=== PATIENT | male | born 1975 | race Caucasian/White ===

== ENCOUNTER → 2017-12-05 11:46 | Outpatient (CLI) | payer OTHER, SELFPAY ==
--- NOTE | 2017-12-05 17:24 | STRESSREP ---
Stress Test Report Exercise stress test. 42-year-old male with a history of chest pain. Stress protocol: 74-year-old man with a history of chest pain. Resting blood pressure 738/94 mmHg. The patient exercised according to regular Don protocol for a total duration of 12 minutes. Patient completed stage IV of the Don protocol. The maximum heart rate attained was 176 bpm was 99% maximum predicted heart rate the maximum workload was 13.4 metabolic equivalents. At rest there were no ST or T-wave changes noted suggest ischemia peak exercise upsloping ST changes only were noted with no meet the criteria for ischemia. Resting blood pressure is 138/94 peak blood pressure is 158/72 rate pressure product was 27,800. No clinical angina was noted no arrhythmias were noted the test was terminated due to leg fatigue. Conclusion: Exercise stress test with no EKG criteria for ischemia at a high workload. Excellent functional aerobic capacity.
== END ==
PROVIDERS: Family Provider Internal Medicine; PCP Internal Medicine; Visit Provider Internal Medicine
DX: R07.9 Chest pain, unspecified (principal); R55 Syncope and collapse
CPT/HCPCS: 93017

== ENCOUNTER → 2019-05-11 09:04 | Outpatient (CLI) | payer OTHER, SELFPAY ==
[2019-05-11 08:31] VITALS: BMI 25.9
[2019-05-11 12:54] LABS: Absolute Lymphocyte Count 0.87 X10^3/uL (0.83-4.51); Absolute Neutrophil Count 2.3 X10^3/uL (2.0-7.7); Basophil# 0.02 X10^3/uL; Basophil% 0.6 % (0-1); Eosinophil# 0.04 X10^3/uL; Eosinophils% 1.1 % (0-5); Hematocrit 45.5 % (40-54); Hemoglobin 15.3 g/dL (13.0-16.5); Lymphocyte # 0.87 X10^3/ul (4.0); Lymphocyte % 24.4 % (19-41); Mean Corp Hgb Conc 33.6 g/dL (32-36); Mean Corpuscular Hgb 31.3 pg (27.0-32.0); Mean Platelet Vol. 9.9 fl (6.2-12.0); Monocyte# 0.36 X10^3/uL; Monocyte% 10.1 % (0-10); NRBC Flagged by Analyzer 0 % (0-5); Neutrophil # 2.25 X10^3/uL (2.7-7.7); Neutrophil % 63.2 % (47-70); Platelet Count 191 K/mm3 (150-450); RBC Distribution Width CV 12.2 % (11.6-14.6); RBC Distribution Width SD 42.3 fl (35.1-43.9); Red Blood Count 4.89 M/mm3 (4.6-6.2); White Blood Count 3.6 K/mm3 (4.4-11.0)
[2019-05-11 13:36] LABS: ALB/GLOB Ratio 1.3 RATIO (0.9-2.4); AST(SGOT) 24 U/L (15-37); Alanine Aminotransfer ALT/SGPT 38 U/L (16-61); Albumin, Serum 4.2 g/dL (3.2-5.0); Alkaline Phosphatase 72 U/L (45-117); Anion Gap 6 (5-15); BUN 17 mg/dL (7-18); BUN/Creat Ratio 17.7 RATIO (10-20); Calcium,Total 9.5 mg/dL (8.5-10.1); Chloride 107 mmol/L (98-107); Cholesterol 247 mg/dL (200); Creatinine, Serum 0.96 mg/dL (0.70-1.30); EST Glomerular Filtration Rate 90 mL/min (>60); Est Glom Filt Rate - Afr Amer 109 mL/min (>60); Globulin 3.2 g/dL (2.2-4.2); Glucose 99 mg/dL (74-106); High Density Lipoprotein 51 mg/dL; Potassium 4.4 mmol/L (3.5-5.1); Protein, Total 7.4 g/dL (6.4-8.2); Sodium Level 139 mmol/L (136-145); Triglycerides 114 mg/dL; Very Low Density Lipoprotein 23 mg/dL (5-40)
== END ==
PROVIDERS: PCP Internal Medicine; Visit Provider Internal Medicine
DX: E78.5 Hyperlipidemia, unspecified (principal)
CPT/HCPCS: 36415; 80053; 80061; 85025

== ENCOUNTER → 2019-05-21 06:49 | Outpatient (CLI) | payer OTHER, SELFPAY ==
[2019-05-11 08:31] VITALS: BMI 25.9
--- NOTE | 2019-05-21 06:57 | CT_ITS ---
STUDY: CT ABDOMEN AND PELVIS WITH CONTRAST REASON FOR EXAM: Male, 43 years old. Inguinal hernia. RADIATION DOSAGE (If Supplied By Facility): CTDIvol = ( 13.02 ) mGy, DLP = ( 834.48 ) mGycm TECHNIQUE: Transaxial images were obtained from the dome of the diaphragm to the symphysis pubis with oral contrast. IV/Oral Isovue 300 100CC was administered. Sagittal and coronal images were reconstructed. Individualized dose optimization techniques were used for this CT. COMPARISON: None. FINDINGS: The visualized lung bases are unremarkable. The visualized portions of the heart are within normal limits. There is hepatomegaly with diffuse hepatic enlargement. Normal gallbladder and extrahepatic biliary system. Normal spleen. Normal pancreas. Normal bilateral adrenal glands. Normal right kidney. Normal left kidney. Normal visualized stomach. Normal small intestine. Normal colon. The appendix is visualized and appears normal. Normal abdominal aorta. Normal inferior vena cava. Normal retroperitoneum. Normal urinary bladder. There is no free fluid in the abdomen or pelvis. There is no free fluid in the abdomen or pelvis. There is a left-sided inguinal hernia containing adipose tissue. Normal osseous structures. CT/Abdomen/Pelvis WITH Contrast IMPRESSION: Left inguinal hernia containing fat. No intra-abdominal mass or obstruction. Hepatomegaly. Electronically Signed: Cj Kim MD at 8:43 EDT , Service support ,
== END ==
PROVIDERS: Family Provider Internal Medicine; PCP Internal Medicine; Referring Provider Internal Medicine; Visit Provider Internal Medicine
DX: K40.90 Unilateral inguinal hernia, without obstruction or gangrene, not specified as recurrent (principal)
CPT/HCPCS: 74177; Q9967

== ENCOUNTER 2019-06-01 10:56 | Day surgery (SDC) | payer OTHER, SELFPAY ==
--- NOTE | 2019-05-27 03:01 | HP_ITS ---
Intake Vital Signs 05/27/19 Body Mass Index (BMI) 25.9 05/27/19 Height 6 ft 5 in 05/27/19 Weight: 216 lb 05/27/19 Body Mass Index (BMI) 25.6 05/27/19 Blood Pressure 154/84 H 05/27/19 Blood Pressure Location Rt brachial 05/27/19 Blood Pressure Position Sitting 05/27/19 Respiratory Rate 18 05/27/19 Pulse Rate 71 05/27/19 Pulse Source Monitor 05/27/19 Temperature 98.3 F 05/27/19 Temperature Source Oral 05/27/19 Pulse Ox 97 05/27/19 Oxygen Delivery Method room air Intake Visit Reasons: Inguinal Hernia Chief Complaint: establish care and possible hernia Prn Occupational Therapist Required: No Is patient in pain?: No Allergies No Known Allergies Allergy (Verified 05/27/19 14:43) Medications citalopram 20 mg tablet 20 mg PO DAILY #90 tab 05/11/19 [Rx Confirmed 05/27/19] lansoprazole 30 mg capsule,delayed release 30 mg PO DAILY #90 cap 05/11/19 [Rx Confirmed 05/27/19] pravastatin 40 mg tablet 40 mg PO DAILY #90 tab 05/11/19 [Rx Confirmed 05/27/19] sildenafil 100 mg tablet 100 mg PO DAILY PRN 05/11/19 [History Confirmed 05/27/19] PFSH Medical History Acid reflux (Acute) Left inguinal hernia (Acute) Alcohol abuse (Acute) Anxiety and depression (Acute) Hyperlipemia (Acute) Surgical History History of hernia repair (Acute) Family History Grandfather Colon cancer Grandmother Breast cancer Father Hypertension Social History (Updated 05/27/19 @ 15:02 by Kraig Solano MD) Smoking Status: Never smoker Smokeless tobacco user: chewing tobacco alcohol intake: former year quit: 2019 substance use type: does not use what type of physical activity do you participate in: running, weight training frequency: 3-4 times per week HPI HPI HPI: LESA DUTTON is a 43 M who presents to the office today for HPI HPI Surgical H&P: Yes HPI: LESA DUTTON, is a 43 M who presents to the office today for Evaluation of left inguinal hernia. Patient states for about a month and a half he has been noticing pain while lifting in his left groin area he has had no change in his bowel or bladder habits he has had a CAT scan obtained at [facility] which showed a left-sided bulge. He notices that the hernia reduces when he lies down. He status post a open right inguinal hernia repair by of surgeon in [facility]. ROS General General: No weight change, appetite, fatigue, colon cancer, breast cancer or weakness HEENT HEENT: No difficulty swallowing, eye injury, eye surgery, swollen glands or hoarseness Endo Endocrine: No thyroid disease, diabetes mellitus, thyroid cancer, Hair loss, heat intolerance or cold intolerance Skin Skin: No rash or changing moles Breast Breast: No left breast lump, right breast lump, nipple discharge, breast pain, abnormal mammogram, abnormal US or breast enlargement Musc Musculoskeletal: No back problems, arthritis, rheumatoid arthritis, gout or joint pain Cardio Cardiovascular: No murmur, pacemaker, heart disease, atrial fibrillation, high blood pressure, heart attack, heart stent, palpitations, shortness of breat with exertion or chest pain Psych Psychiatric: Yes depression and anxiety; no hearing voices Resp Respiratory: No shortness of breath, No sleep apnea, No cough, No COPD, No asthma, No emphysema, No wheezing Gastro Gastrointestinal: No abdominal pain, No nausea or vomiting, No diarrhea, No constipation, No blood in stool, Yes acid reflux, Yes hemorrhoids, No ulcers, No gallbladder problem, No black,tarry stools Sebastian Hematologic: No blood thinners, No blood disorders, No bleeding, No anemia, No blood clots Neuro Neurologic: No system reviewed and no additional complaints, except as docu, No as per HPI, No abnormal walking, No abnormal hearing, No abnormal movements, No abnormal speech, No behavioral changes, No burning sensations, No confusion, No seizure-like activity, No unsteadiness, No dizziness, No localized weakness, No frequent falls, No headache(s), No lack of coordination, No loss of vision, No memory loss, No numbness, No other visual disturbances, No radiating pain, No restless legs, No sensory deficit, No fainting, No tingling, No tremor(s), No weakness, No other Exam Const General: no acute distress, well developed, well hydrated Orientation: oriented to person, oriented to place, oriented to time [facility] Head: normocephalic, atraumatic Ears: external ears normal Mouth: moist mucous membranes Eyes Sclera: sclerae normal Pupils: normal by confrontation Neck Neck: no lymphadenopathy noted Neck mass: No Thyroid: thyroid normal, symmetrical Chest Chest palpation & inspection: normal inspection of the chest Breast Palpation: No nipple discharge Resp Effort & Inspection: normal respiratory effort Auscultation: clear to auscultation bilaterally Percussion: percussion normal Cardio Rate: regular rate Rhythm: regular rhythm Heart Sounds: no murmurs GI Palpation: soft, no hepatosplenomegaly, no masses, tender Rectal Exam: other Other: Reducible left inguinal hernia is identified. Rectal exam deferred. Extrem General: normal to inspection, no clubbing, cyanosis or edema Assessment & Plan Problems 1. Left inguinal hernia K40.90 Plan My plan is to perform a Robotically assisted laparoscopic left inguinal hernia repair with mesh. The planned surgical procedure was discussed extensively with the patient. The risks, benefits, anticipated outcomes and possible complication were mentioned. The patient understands that all hernia repair surgery has a chance of recurrence and/or chronic post-operative pain. My staff has also explained the procedure in understandable terms and the patient was given the option to take printed material concerning the planned procedure. The patient had the opportunity to ask questions concerning the planned procedure. The patient freely consents to the planned procedure. Coding Level of Care Code Off vis,new,level 3 Diagnoses Left inguinal hernia K40.90 05/27/19 1502 <Electronically signed by Kraig inman MD> Date _ Kraig Solano MD I have re-examined the patient. There are no clinical changes since date of exam.
[2019-05-27 14:43] VITALS: BMI 25.9
[2019-06-01] VITALS (10 sets, daily range): BP systolic 122–141; BP diastolic 78–97; PULSE 59–82; RESP 14–16; TEMP 36.3–36.7; O2SAT 96–100; BMI 27.1
[2019-06-01 11:33] LABS: Prothrombin Time (Protime)PT. 12.8 SECONDS (11.7-14.9)
[2019-06-01 11:34] LABS: Partial Thromboplast Time 26.6 Seconds (24.1-36.2)
[2019-06-01] MEDS: Lactated Ringers 1,000 ML 100 ML IV ×2 (12:14→12:43)
--- NOTE | 2019-06-01 13:28 | PCM.OPRPT ---
Problem List (1) Left inguinal hernia Status: Acute Report of Operation Date of Procedure: 06/01/19 Pre-Operative Diagnosis: Left inguinal hernia Post-Operative Diagnosis: Same Surgery/Procedure Performed:: Robotically assisted laparoscopic left inguinal herniorrhaphy with mesh Type of Anesthesia:: General Specimen's removed: None Estimated Blood Loss (mL): <25 cc Fluids Replaced: 1 L LR Description of Procedure: Patient was brought into the operating room. Placed in the supine position. Under excellent general trach intubation abdomen the bed was then placed in the head down and rotated to the right position. The abdomen was then sterilely prepped draped in usual fashion. Local was injected supraumbilically incision was made dissection was carried down to the fascia fascia was grasped with [place] varies needle was placed inside the abdomen the abdomen was insufflated to 15 torr a #8 trocar was placed without difficulty. It was flank by 2 #8 trochars under direct visualization without injury to underlying structures. Robot was brought in and docked appropriately pro-grasp was used in the left hand scissors were used in the right hand. I scored the peritoneum dissecting in the preperitoneal space down to Pino's ligament I dissected laterally dissecting the cord and vessel structures free from the peritoneum I brought back in an extremely large cord lipoma back into the peritoneum. I fashioned a medium 3 DMax mesh into the wound. I tacked it to Pino's ligament with a 0 Vicryl suture ligature the mesh laid completely flat it looked great I then brought the peritoneum back together with 30V lock suturing it upon itself. Covering the mesh completely. I had good hemostasis. Trochars were removed under direct visualization. Skin incisions were brought together with interrupted 3-0 Monocryl. Steri-Strips were applied. Sterile dressings were applied. Patient tolerated the procedure well. - Admit VTE Documentation VTE Present on Admission: No VTE Mechan Device Prophylaxis: SCD's VTE Pharm Prophylaxis ordered?: No Reason prophylaxis not ordered:: Treatment Not Indicated
--- NOTE | 2019-06-01 13:29 | DCINST_ITS ---
Discharge Diet: Light diet - advance as tolerated Discharge Activity: Return to Normal Activity, May Drive - when you are no longer taking narcotic pain medications., May Shower - with the bandage in place 1-2 days after surgery. Lifting Restrictions: 20 pounds for 8 weeks. Additional Activity Instructions:: Climbing stairs is fine, walking is encouraged. Sitting in bed may be uncomfortable. Sitting up using your lateral muscles (sitting up sideways) is usually more comfortable. Do not drive, work heavy equipment of sign legal documents for 24 hours. If your hernia repair was an ingunial repair, you may have scrotal swelling, an ice pack and/or athletic support can provide more comfort. Pain medications may cause nausea, you should typically eat light foods as you take your pain medications. Pain medications may also cause constipation. If you have difficulty with this, discuss with your doctor. Call your doctor if your incision/area has: Continuous Slow Oozing, Sudden Increased Bleeding, Increased Pain/ Swelling, Increased Redness, Foul Smelling Discharge Call your doctor if you observe: Fever of 101 or Higher Suture Line Care: Avoid Pulling/Pushing, Avoid Pinching/Bending Additional Dressing/Incision Instructions:: Leave the operative bandage on for 2-3 days. When you remove the bandage, leave the steri-strips on place until your follow up appointment or they fall off. Allergies/Adverse Reactions: Allergies No Known Allergies Allergy (Verified 06/01/19 12:05) Medications to take at Discharge citalopram 20 mg tablet 20 mg PO DAILY #90 tab 05/11/19 lansoprazole 30 mg capsule,delayed release 30 mg PO DAILY #90 cap 05/11/19 pravastatin 40 mg tablet 40 mg PO DAILY #90 tab 05/11/19 sildenafil 100 mg tablet 100 mg PO DAILY PRN 05/11/19 Oxycodone HCl/Acetaminophen [Percocet 5/325] 1 - 2 tab PO Q4H PRN PRN 6 Days #30 tab 06/01/19 The following prescriptions were given: Oxycodone HCl/Acetaminophen [Percocet 5/325] 1 - 2 tab PO Q4H PRN PRN 6 Days #30 tab PRN Reason: Pain Prescription Printed Primary Care Physician: Hank Gill MD [Primary Care Provider] - Test Results: Test results from this visit will be discussed in further detail at your follow- up appointment, if applicable. Please Follow Up With: Kraig Solano MD - [phone] When: Plan to have a follow up appointment in 7 days. Call to schedule.
[2019-06-01] MEDS: Cefazolin 2 GM in 0.9% Normal Saline 100 ML IV (13:36)
[2019-06-01] MEDS: Bupivacaine Mpf 0.5% 30 ML VIAL (15:15)
[2019-06-01] MEDS: oxyCODONE 5 MG Tablet 10 MG PO (16:58)
[2019-06-01] MEDS: Acetaminophen 325 MG Tablet 650 MG PO (16:59)
== END 2019-06-01 19:05 | disposition home or self-care (01) ==
LOC: SDC 10:56 → AC 10:58
PROVIDERS: Anesthesiology; Family Provider Internal Medicine; PCP Internal Medicine; Referring Provider Surgery; Visit Provider Surgery
PROC: 0YQ64ZZ Repair Left Inguinal Region, Percutaneous Endoscopic Approach (ICD-10-PCS; CPT 49650; principal; 2019-06-01 12:40)
DX: K40.90 Unilateral inguinal hernia, without obstruction or gangrene, not specified as recurrent (principal); E78.5 Hyperlipidemia, unspecified; F32.9 Major depressive disorder, single episode, unspecified; F41.9 Anxiety disorder, unspecified; K21.9 Gastro-esophageal reflux disease without esophagitis; F17.220 Nicotine dependence, chewing tobacco, uncomplicated; Z79.899 Other long term (current) drug therapy
CPT/HCPCS: 00840; 49650; S2900; 36415; 85610; 85730; J7120; C1781; J2405

== ENCOUNTER → 2020-11-08 09:33 | Outpatient (CLI) | payer OTHER, SELFPAY ==
[2020-11-08 08:39] VITALS: BMI 24.6
[2020-11-08 12:10] LABS: Absolute Lymphocyte Count 0.76 X10^3/uL (0.83-4.51); Absolute Neutrophil Count 2.1 X10^3/uL (2.0-7.7); Basophil# 0.02 X10^3/uL; Basophil% 0.6 % (0-1); Eosinophil# 0.04 X10^3/uL; Eosinophils% 1.2 % (0-5); Hematocrit 47.5 % (40-54); Hemoglobin 15.7 g/dL (13.0-16.5); Lymphocyte # 0.76 X10^3/ul (0.83-4.51); Mean Corp Hgb Conc 33.1 g/dL (32-36); Mean Corpuscular Hgb 31.3 pg (27.0-32.0); Mean Corpuscular Volume 94.8 fL (80-94); Monocyte# 0.33 X10^3/uL; NRBC Flagged by Analyzer 0 % (0-5); Neutrophil # 2.13 X10^3/uL (2.7-7.7); Neutrophil % 64.3 % (47-70); Platelet Count 195 K/mm3 (150-450); RBC Distribution Width CV 12.8 % (11.6-14.6); RBC Distribution Width SD 44.4 fl (35.1-43.9); Red Blood Count 5.01 M/mm3 (4.6-6.2); White Blood Count 3.3 K/mm3 (4.4-11.0)
[2020-11-08 12:36] LABS: ALB/GLOB Ratio 1.3 RATIO (0.9-2.4); AST(SGOT) 25 U/L (15-37); Alanine Aminotransfer ALT/SGPT 26 U/L (16-61); Albumin, Serum 4.3 g/dL (3.2-5.0); Alkaline Phosphatase 80 U/L (45-117); Anion Gap 6 (5-15); BUN 17 mg/dL (7-18); BUN/Creat Ratio 18.6 RATIO (10-20); Calcium,Total 9.1 mg/dL (8.5-10.1); Chloride 103 mmol/L (98-107); Cholesterol 246 mg/dL (200); Creatinine, Serum 0.92 mg/dL (0.70-1.30); EST Glomerular Filtration Rate 95 mL/min (>60); Est Glom Filt Rate - Afr Amer 114 mL/min (>60); Globulin 3.3 g/dL (2.2-4.2); Glucose 91 mg/dL (74-106); High Density Lipoprotein 65 mg/dL; Protein, Total 7.6 g/dL (6.4-8.2); Sodium Level 138 mmol/L (136-145); Thyroid Stim Hormone (TSH) 2.09 uIU/mL (0.358-3.74); Triglycerides 115 mg/dL; Very Low Density Lipoprotein 23 mg/dL (5-40)
[2020-11-15 09:36] LABS: Testosterone, Free 13.29 ng/dL (5.00-21.00)
[2020-11-15 12:20] LABS: Testosterone, % Free 3.92 % (1.50-4.20); Testosterone, Total 339 ng/dL (264-916)
== END ==
PROVIDERS: PCP Internal Medicine; Referring Provider Nurse Practitioner Family; Visit Provider Nurse Practitioner Family
DX: E78.5 Hyperlipidemia, unspecified (principal); K21.9 Gastro-esophageal reflux disease without esophagitis; F41.8 Other specified anxiety disorders; F32.9 Major depressive disorder, single episode, unspecified; N52.9 Male erectile dysfunction, unspecified
CPT/HCPCS: 36415; 80053; 80061; 84402; 84403; 84443; 85025

== ENCOUNTER 2021-11-28 10:26 | Outpatient (CLI) | payer OTHER, SELFPAY ==
--- NOTE | 2021-11-28 09:10 | VAS_PTH ---
PATIENT: LESA DUTTON LOC: [facility] U#:[id number] AGE/SX: 46/M ROOM: RE11/28/[address]: Dr. Avinash Zepeda MD : 1975 BED: DIS: 11/28/2021 SPEC #: [id number] RECD: 11/28/21 09:51 STATUS: ROD MARTHA #: [id number] BEATRICE: 11/28/21 09:[address]: Avinash Zepeda DEPT: SURGICAL PATHOLOGY RECD BY: Francisco Zimmerman ENTERED: 11/28/21 10:58 SP TYPE: VAS OTHR DR: Dr. Hank Gill MD Tissues: A - Vas deferens, NOS B - Vas deferens, NOS Procedures: Surgery Specimen Level II HEADER OPERATION: Bilateral partial vasectomy PRE-OP DIAGNOSIS: Sterilization TISSUE SUBMITTED: A ? Left vas deferens, B ? Right vas deferens MICROSCOPIC DIAGNOSIS A. Left vas deferens, segmental vasectomy: Complete cross-section of vas deferens with no pathologic change. B. Right vas deferens, segmental vasectomy: Complete cross-section of vas deferens with no pathologic change. AM:crystal 11/29/2021 MICROSCOPIC DESCRIPTION Slides are reviewed. GROSS DESCRIPTION A - Received is one container designated left vas deferens. The specimen consists of a tubular segment of mendez soft tissue measuring 0.7 cm in length and 0.2 cm in diameter. The specimen is sectioned and submitted entirely in one cassette. B - Received is one container designated right vas deferens. The specimen consists of a tubular segment of mendez soft tissue measuring 0.7 cm in length and 0.2 cm in diameter. The specimen is sectioned and submitted entirely in one cassette. / SJ:crystal 11/28/2021 TC:4 CPT: 52143 x2
== END 2021-11-28 23:59 | disposition home or self-care (01) ==
LOC: LABSPEC 10:28
PROVIDERS: PCP Internal Medicine; Referring Provider Surgery; Visit Provider Surgery
DX: Z30.2 Encounter for sterilization (principal)
CPT/HCPCS: 88302

== ENCOUNTER → 2021-12-05 | Outpatient (CLI) | payer OTHER, SELFPAY ==
[2021-12-05 12:14] LABS: Absolute Lymphocyte Count 0.91 X10^3/uL (0.83-4.51); Absolute Neutrophil Count 2.2 X10^3/uL (2.0-7.7); Basophil# 0.01 X10^3/uL; Basophil% 0.3 % (0-1); Eosinophil# 0.07 X10^3/uL; Hematocrit 48.1 % (40-54); Hemoglobin 15.7 g/dL (13.0-16.5); Lymphocyte # 0.91 X10^3/ul (0.83-4.51); Lymphocyte % 25.5 % (19-41); Mean Corp Hgb Conc 32.6 g/dL (32-36); Mean Corpuscular Volume 94.9 fL (80-94); Mean Platelet Vol. 9.9 fl (6.2-12.0); Monocyte% 11.2 % (0-10); NRBC Flagged by Analyzer 0 % (0-5); Neutrophil # 2.17 X10^3/uL (2.7-7.7); Neutrophil % 60.7 % (47-70); Platelet Count 180 K/mm3 (150-450); RBC Distribution Width CV 12.5 % (11.6-14.6); RBC Distribution Width SD 43.5 fl (35.1-43.9); Red Blood Count 5.07 M/mm3 (4.6-6.2); White Blood Count 3.6 K/mm3 (4.4-11.0)
[2021-12-05 13:16] LABS: ALB/GLOB Ratio 1.3 RATIO (0.9-2.4); AST(SGOT) 21 U/L (15-37); Alanine Aminotransfer ALT/SGPT 26 U/L (16-61); Albumin, Serum 4.2 g/dL (3.2-5.0); Alkaline Phosphatase 59 U/L (45-117); Anion Gap 6 (5-15); BUN 16 mg/dL (7-18); BUN/Creat Ratio 16.3 RATIO (10-20); Calcium,Total 8.9 mg/dL (8.5-10.1); Chloride 106 mmol/L (98-107); Cholesterol 181 mg/dL (200); Creatinine, Serum 0.98 mg/dL (0.70-1.30); EST Glomerular Filtration Rate 87 mL/min (>60); Est Glom Filt Rate - Afr Amer 105 mL/min (>60); Globulin 3.2 g/dL (2.2-4.2); Glucose 98 mg/dL (74-106); High Density Lipoprotein 58 mg/dL; Potassium 4.3 mmol/L (3.5-5.1); Protein, Total 7.4 g/dL (6.4-8.2); Sodium Level 140 mmol/L (136-145); Thyroid Stim Hormone (TSH) 1.78 uIU/mL (0.358-3.74); Triglycerides 114 mg/dL; Very Low Density Lipoprotein 23 mg/dL (5-40)
== END | disposition home or self-care (01) ==
LOC: BIMLAB 08:30
PROVIDERS: PCP Internal Medicine; Referring Provider Nurse Practitioner Family; Visit Provider Nurse Practitioner Family
DX: Z00.00 Encounter for general adult medical examination without abnormal findings (principal)
CPT/HCPCS: 36415; 80053; 80061; 84443; 85025

== ENCOUNTER 2021-12-21 06:37 | Day surgery (SDC) | payer OTHER, SELFPAY ==
[2021-12-21 06:59] VITALS: BP 120/86; PULSE 74; RESP 16; TEMP 36.6; O2SAT 98; BMI 24.5
[2021-12-21] MEDS: Lactated Ringers 1,000 ML 15 ML IV (07:04)
--- NOTE | 2021-12-21 07:38 | H&P.OPEN ---
HPI - General HPI Narrative LESA DUTTON, is a 46 M who presents for screening colonoscopy. Patient has never had a colonoscopy in the past. He denies any abdominal pain or blood in the stool. He has no family history of colon cancer. [facility] Medical History (Updated 12/19/21 @ 14:13 by Marilyn Javier) Acid reflux Alcohol abuse Anxiety and depression Easy bruising Encounter for preventative adult health care examination Gastric reflux High cholesterol History of stress test Hyperlipemia Left inguinal hernia Non-smoker Redness of skin Home Medications lansoprazole 30 mg capsule,delayed release 30 mg PO DAILY #90 cap 12/05/21 [Rx Last Taken Unknown] rosuvastatin 5 mg tablet 5 mg PO DAILY #90 tablet 12/05/21 [Rx Last Taken Unknown] Allergy/AdvReac Type Severity Reaction Status Date / Time No Known Allergies Allergy Verified 12/21/21 06:59 Family History Grandfather Colon cancer Grandmother Breast cancer Father Hypertension Surgical History History of hernia repair Social History Smoking Status: Never smoker Smokeless tobacco user: chewing tobacco alcohol intake: former year quit: 2019 substance use type: does not use what type of physical activity do you participate in: running and weight training frequency: 3-4 times per week Past Medical/Surgical History Planned Operation Planned Operative Procedure/s: colonoscopy S.O.S: No Previous Hospitalizations/Surgeries HX Hospitalizations: No HX of Surgeries: right inguinal hernia repair Any Problems With Anesthesia: No You/Your Family Experience Fever (Hyperthermia) With Anes: No Cholinesterase deficiency: No Cardiovascular Hx Chest Pain within Last 2 months: No Hx of Irregular Heartbeat and/or Afib: No Hx Heart Attack: No Hx Congestive Heart Failure: No Hx Rheumatic Fever: No Hx Hypertension: No Hx Internal Defibrillator: No Hx Pacemaker: No Hx Cardiac Catheterization: No Hx Cardiac Surgery/Stents/Etc.: No Hx Stress Test: Yes (2018) Hx Pain in Legs when Walking/Leg Cramps: No Respiratory Chronic Cough: No HX of Shortness of Breath: No Hoarseness: No Hx Chronic Obstructive Pulmonary Disease (COPD): No Hx Asthma: No Hx Emphysema: No Hx Sleep Apnea: No Hx Respiratory Tract Infection/Cold (presently): No Do You Snore Loudly (louder than talking or can be heard): No Do You Often Feel Tired/ Fatigued/ Sleepy Dring Daytime?: No Has Anyone Observed You Stop Breathing During Sleep?: No Result (for STOP score): Negative Hx Smoking: No Smoking Status: Never smoker Gastrointestinal Hx Gastroesophageal Reflux: Yes Controlled With Meds: Yes Hx Gastrointestinal Disorders: No Hx Gastrointestinal Bleed: No Hx Ulcer: No Hx Hiatal Hernia: No Difficulty Chewing/Swallowing: No Special diet followed at home: No Hx Unplanned Weight Loss of 20#: No HX Unplanned Weight Gain of 20#: No Neurological Hx Seizures: No HX Syncope/Blackout Spells/Unconsciousness: No Hx Transient Ischemic Attacks (TIA): No Hx Multiple Sclerosis: No Hx Parkinson's Disease: No Hx Head/Neck Injury: No Hx Headaches: No Hx Back Injury/Pain: No Recent Onset of Speech Difficulty: No Restless Legs: No Does patient have nerve stimulator: No Blood Disorder Hx Leukemia: No Bleeding Tendencies: Yes (bruises easily) Hx Deep Vein Thrombosis: No Hx High Cholesterol: Yes (on med) Blood Transmitted Disease: No Hx Hepatitis: No Hx Cirrhosis: No Hx Anemia: No Hx Blood Disorders: No Genitourinary Hx Renal Disease: No Musculoskeletal Hx Arthritis: No Hx Rheumatoid Arthritis: No Hx Gout: No Recent Onset of an Orthopedic Problem: No Endocrine Hx Diabetes: No Thyroid Disease: No Hx Steroid Therapy: No Psycho/Social Hx Substance Use: No Hx Alcohol Use: No Hx Anxiety: Yes (on med) Hx Depression: Yes (on med) Mental Illness: No Hx Dementia: No Miscellaneous Hx Cancer: No Recent Exposure to Contagious Disease: No Hx of C-Diff: No Any Loose Teeth: No Allergies No Known Allergies Allergy (Verified 12/21/21 06:59) Discharge Is Pt Admitted From a Custodial, or a Jail: No Who Could Help: After D/C, Where Do you Plan to Go: Return Home Vital Signs Vital Signs Vital Signs: 12/21/21 06:59 Temperature 97.8 F Temperature Source Temporal Pulse Rate 74 Respiratory Rate 16 Respiratory Pattern Normal Blood Pressure 120/86 H Blood Pressure Mean 97 Blood Pressure Source Monitor Blood Pressure Position Semi-Fowlers Blood Pressure Location Right Arm Pulse Ox 98 Oxygen Delivery Method Room Air Weight Weight: 196 lb 3.382 oz Body Mass Index (BMI) 24.5 Physical Exam Const alert and oriented x3 Resp normal respiratory effort and normal air movement Cardio regular rate and regular rhythm GI soft to palpation, non-tender and non-distended Assessment & Plan Assessment/Plan (1) Screen for colon cancer: PLAN: I explained endoscopy in detail to the patient. I explained the risks including but not limited to stroke or heart attack with anesthesia, perforation of the GI tract, bleeding, infection. I explained that any of these could necessitate further emergency surgery. The patient understands and all questions were answered sufficiently. The patient wishes to proceed with procedure. Avinash Zepeda MD Pager: [facility] [address] [place] [address] [address] [place] [address] Office: Surgery Risks - Colonoscopy Risks Include but are not Limited To: Risks include but are not limited to: Bleeding, perforation requiring further surgery, inability to complete colonoscopy requiring barium enema.
[2021-12-21 08:13] VITALS: BP 110/77; BP 120/86; PULSE 73; RESP 16; TEMP 36.8; O2SAT 98
--- NOTE | 2021-12-21 08:15 | OP.COLON_ITS ---
Patient Name: Andrés Nevarez Procedure Date: 12/21/2021 7:48 AM Date of : 1975 Age: 46 Procedure: Colonoscopy Indications: Screening for colorectal malignant neoplasm Providers: Avinash eZpeda MD Medicines: Monitored Anesthesia Care Patient Profile: This is a 46 year old male. Refer to note in patient chart for documentation of history and physical. Last Colonoscopy: none. The patient's first colonoscopy is today. Complications: No immediate complications. Procedure: Pre-Anesthesia Assessment: - Prior to the procedure, a History and Physical was performed, and patient medications and allergies were reviewed. The patient's tolerance of previous anesthesia was also reviewed. The risks and benefits of the procedure and the sedation options and risks were discussed with the patient. All questions were answered, and informed consent was obtained. Prior Anticoagulants: The patient has taken no previous anticoagulant or antiplatelet agents. After reviewing the risks and benefits, the patient was deemed in satisfactory condition to undergo the procedure. After I obtained informed consent, the scope was passed under direct vision. Throughout the procedure, the patient's blood pressure, pulse, and oxygen saturations were monitored continuously. The colonoscope was introduced through the anus and advanced to the cecum, identified by appendiceal orifice and ileocecal valve. The colonoscopy was performed without difficulty. The patient tolerated the procedure well. The quality of the bowel preparation was good. Scope In: 7:55:47 AM Scope Withdrawal Time 0 hours 6 minutes 13 seconds Scope Out: 8:08:51 AM Total Procedure Duration Time 0 hours 13 minutes 4 seconds Findings: The entire examined colon appeared normal on direct and retroflexion views. Impression: - The entire examined colon is normal on direct and retroflexion views. - No specimens collected. Recommendation: - Discharge patient to home. - Resume previous diet. - Continue present medications. - Repeat colonoscopy in 10 years for screening purposes. Procedure Code(s): --- Professional --- 35950, Colonoscopy, flexible; diagnostic, including collection of specimen(s) by brushing or washing, when performed (separate procedure) Diagnosis Code(s): --- Professional --- Z12.11, Encounter for screening for malignant neoplasm of colon CPT copyright 2017 [employer]. All rights reserved. The codes documented in this report are preliminary and upon furniture inspector review may be revised to meet current compliance requirements. Avinash Zepeda MD 12/21/2021 8:15:19 AM This report has been signed electronically. Number of Addenda: 0 Note Initiated On: 12/21/2021 7:48 AM
--- NOTE | 2021-12-21 08:16 | OP.CCLET_ITS ---
12/21/2021 Hank Gill MD [address] [place] [address] [place] [address] Re : Colonoscopy procedure for Andrés Nevarez Dear Dr. Gill This procedure was performed on Tuesday, December 21, 2021. My impressions and recommendations are as follows: Impressions : - The entire examined colon is normal on direct and retroflexion views. - No specimens collected. Recommendations : - Discharge patient to home. - Resume previous diet. - Continue present medications. - Repeat colonoscopy in 10 years for screening purposes. My findings are described in the full procedure note, which is enclosed. If I can be of further assistance, please feel free to contact me at Doctor phone number(s): , Work: . Sincerely, Avinash Zepeda MD 12/21/2021 8:15:19 AM This report has been signed electronically.
[2021-12-21 08:18] VITALS: BP 115/76; BP 120/86; PULSE 73; RESP 16; O2SAT 100
[2021-12-21 08:23] VITALS: BP 110/75; BP 120/86; PULSE 70; RESP 16; O2SAT 99
[2021-12-21 08:28] VITALS: BP 120/86; BP 123/80; PULSE 67; RESP 16; TEMP 36.6; O2SAT 97
[2021-12-21 08:45] VITALS: BP 120/86
== END 2021-12-21 08:55 | disposition home or self-care (01) ==
LOC: EN 06:38 → AC 06:39
PROVIDERS: PCP Internal Medicine; Referring Provider Internal Medicine; Visit Provider Surgery
PROC: 0DJD8ZZ Inspection of Lower Intestinal Tract, Via Natural or Artificial Opening Endoscopic (ICD-10-PCS; CPT 45378; principal; 2021-12-21 07:25)
DX: Z12.11 Encounter for screening for malignant neoplasm of colon (principal); E78.00 Pure hypercholesterolemia, unspecified; K21.9 Gastro-esophageal reflux disease without esophagitis; F32.A Depression, unspecified; F41.9 Anxiety disorder, unspecified; F17.220 Nicotine dependence, chewing tobacco, uncomplicated; Z79.899 Other long term (current) drug therapy; Z80.3 Family history of malignant neoplasm of breast
CPT/HCPCS: 45378; J7120

== ENCOUNTER → 2022-12-05 | Outpatient (CLI) | payer OTHER, SELFPAY ==
[2022-12-05 12:10] LABS: Absolute Lymphocyte Count 0.76 X10^3/uL (0.83-4.51); Absolute Neutrophil Count 3.6 X10^3/uL (2.0-7.7); Basophil# 0.01 X10^3/uL; Basophil% 0.2 % (0-1); Eosinophil# 0.03 X10^3/uL; Eosinophils% 0.6 % (0-5); Hemoglobin 16.1 g/dL (13.0-16.5); Lymphocyte # 0.76 X10^3/ul (0.83-4.51); Mean Corp Hgb Conc 32.9 g/dL (32-36); Mean Corpuscular Hgb 31.1 pg (27.0-32.0); Mean Corpuscular Volume 94.6 fL (80-94); Mean Platelet Vol. 9.6 fl (6.2-12.0); Monocyte# 0.34 X10^3/uL; Monocyte% 7.2 % (0-10); NRBC Flagged by Analyzer 0 % (0-5); Neutrophil # 3.59 X10^3/uL (2.7-7.7); Neutrophil % 75.8 % (47-70); Platelet Count 197 K/mm3 (150-450); RBC Distribution Width CV 12.2 % (11.6-14.6); RBC Distribution Width SD 42.6 fl (35.1-43.9); Red Blood Count 5.18 M/mm3 (4.6-6.2); White Blood Count 4.7 K/mm3 (4.4-11.0)
[2022-12-05 13:13] LABS: ALB/GLOB Ratio 1.2 RATIO (0.9-2.4); AST(SGOT) 101 U/L (15-37); Alanine Aminotransfer ALT/SGPT 45 U/L (16-61); Albumin, Serum 4.3 g/dL (3.2-5.0); Alkaline Phosphatase 69 U/L (45-117); Anion Gap 6 (5-15); BUN 27 mg/dL (7-18); Calcium,Total 9.6 mg/dL (8.5-10.1); Chloride 105 mmol/L (98-107); Cholesterol 194 mg/dL (200); Creatinine, Serum 1.08 mg/dL (0.70-1.30); EST Glomerular Filtration Rate 77 mL/min (>60); Est Glom Filt Rate - Afr Amer 94 mL/min (>60); Globulin 3.5 g/dL (2.2-4.2); Glucose 80 mg/dL (74-106); High Density Lipoprotein 58 mg/dL; Potassium 4.6 mmol/L (3.5-5.1); Protein, Total 7.8 g/dL (6.4-8.2); Sodium Level 137 mmol/L (136-145); Thyroid Stim Hormone (TSH) 1.87 uIU/mL (0.358-3.74); Triglycerides 74 mg/dL; Very Low Density Lipoprotein 15 mg/dL (5-40)
[2022-12-05 20:29] LABS: Hepatitis B Surface Antigen Non-Reactive (Nonreactive); Hepatitis C Antibody Non-Reactive (Nonreactive)
== END | disposition home or self-care (01) ==
LOC: BIMLAB 09:42
PROVIDERS: PCP Internal Medicine; Referring Provider Nurse Practitioner Family; Visit Provider Nurse Practitioner Family
DX: Z00.00 Encounter for general adult medical examination without abnormal findings (principal); R79.89 Other specified abnormal findings of blood chemistry
CPT/HCPCS: 36415; 80053; 80061; 84443; 85025; 86803; 87340

== ENCOUNTER → 2023-02-19 | Outpatient (CLI) | payer OTHER, SELFPAY ==
[2023-02-19 15:26] LABS: ALB/GLOB Ratio 1.4 RATIO (0.9-2.4); AST(SGOT) 26 U/L (15-37); Alanine Aminotransfer ALT/SGPT 33 U/L (16-61); Albumin, Serum 4.4 g/dL (3.2-5.0); Alkaline Phosphatase 65 U/L (45-117); Anion Gap 5 (5-15); BUN 17 mg/dL (7-18); BUN/Creat Ratio 16.3 RATIO (10-20); Calcium,Total 9.3 mg/dL (8.5-10.1); Chloride 103 mmol/L (98-107); Creatinine, Serum 1.04 mg/dL (0.70-1.30); EST Glomerular Filtration Rate 81 mL/min (>60); Est Glom Filt Rate - Afr Amer 98 mL/min (>60); Globulin 3.1 g/dL (2.2-4.2); Glucose 97 mg/dL (74-106); Potassium 4.1 mmol/L (3.5-5.1); Protein, Total 7.5 g/dL (6.4-8.2); Sodium Level 137 mmol/L (136-145)
== END | disposition home or self-care (01) ==
LOC: BIMLAB 12:16
PROVIDERS: PCP Internal Medicine; Visit Provider Internal Medicine
DX: R94.5 Abnormal results of liver function studies (principal)
CPT/HCPCS: 36415; 80053

== ENCOUNTER → 2024-05-10 | Outpatient (CLI) | payer OTHER, SELFPAY ==
[2024-05-10 12:22] LABS: Absolute Lymphocyte Count 0.87 X10^3/uL (0.83-4.51); Basophil# 0.02 X10^3/uL; Basophil% 0.6 % (0-1); Eosinophil# 0.03 X10^3/uL; Eosinophils% 0.9 % (0-5); Hematocrit 45.1 % (40-54); Hemoglobin 15.5 g/dL (13.0-16.5); Lymphocyte # 0.87 X10^3/ul (0.83-4.51); Lymphocyte % 26.9 % (19-41); Mean Corp Hgb Conc 34.4 g/dL (32-36); Mean Corpuscular Hgb 31.3 pg (27.0-32.0); Mean Corpuscular Volume 91.1 fL (80-94); Mean Platelet Vol. 9.7 fl (6.2-12.0); Monocyte# 0.32 X10^3/uL; Monocyte% 9.9 % (0-10); NRBC Flagged by Analyzer 0 % (0-5); Neutrophil # 1.98 X10^3/uL (2.7-7.7); Neutrophil % 61.1 % (47-70); Platelet Count 168 K/mm3 (150-450); RBC Distribution Width CV 12.1 % (11.6-14.6); RBC Distribution Width SD 40.1 fl (35.1-43.9); Red Blood Count 4.95 M/mm3 (4.6-6.2); White Blood Count 3.2 K/mm3 (4.4-11.0)
[2024-05-10 12:47] LABS: ALB/GLOB Ratio 1.4 RATIO (0.9-2.4); AST(SGOT) 21 U/L (15-37); Alanine Aminotransfer ALT/SGPT 23 U/L (16-61); Albumin, Serum 4.1 g/dL (3.2-5.0); Alkaline Phosphatase 57 U/L (45-117); Anion Gap 6 (5-15); BUN 24 mg/dL (7-18); BUN/Creat Ratio 24.1 RATIO (10-20); Calcium,Total 9.3 mg/dL (8.5-10.1); Chloride 107 mmol/L (98-107); Cholesterol 187 mg/dL (200); Creatinine, Serum 0.99 mg/dL (0.70-1.30); EST Glomerular Filtration Rate 85 mL/min (>60); Est Glom Filt Rate - Afr Amer 103 mL/min (>60); Glucose 103 mg/dL (74-106); High Density Lipoprotein 58 mg/dL; Potassium 4.2 mmol/L (3.5-5.1); Protein, Total 7.1 g/dL (6.4-8.2); Sodium Level 140 mmol/L (136-145); Triglycerides 81 mg/dL; Very Low Density Lipoprotein 16 mg/dL (5-40)
== END | disposition home or self-care (01) ==
LOC: BIMLAB 08:43
PROVIDERS: PCP Internal Medicine; Referring Provider Internal Medicine; Visit Provider Internal Medicine
DX: Z00.00 Encounter for general adult medical examination without abnormal findings (principal); Z12.5 Encounter for screening for malignant neoplasm of prostate
CPT/HCPCS: 36415; 80053; 80061; 84153; 85025; G0103

== ENCOUNTER → 2025-01-18 | Outpatient (CLI) | payer OTHER, SELFPAY ==
[2025-01-18 16:57] LABS: HIV Nonreactive (Nonreactive); Syphilis Antibodies Nonreactive (Nonreactive)
== END | disposition home or self-care (01) ==
LOC: MTLAB 11:33
PROVIDERS: PCP Internal Medicine; Referring Provider Nurse Practitioner Family; Visit Provider Nurse Practitioner Family
DX: Z11.3 Encounter for screening for infections with a predominantly sexual mode of transmission (principal)
CPT/HCPCS: 36415; 86703; 86706; 86780; 86803; 87081; 87340

== ENCOUNTER → 2025-05-17 | Outpatient (CLI) | payer OTHER, SELFPAY ==
--- OUTSIDE RECORDS SUMMARY | 2025-05-17 07:26 | XMS RPT_ITS | CCD ---
Author Organization [facility] Care Team Providers Care Diesel Engine Inspector Name Role Phone CIELO SWAIN Admitting Unavailable CIELO SWAIN Attending Unavailable CIELO SWAIN Primary Care Unavailable TEOFILO SUTTON Attending Unavailable TEOFILO SUTTON Primary Care Unavailable TEOFILO SUTTON Admitting Unavailable Dr. Hank Gill Primary Care Provider [phone] Dr. Hank Gill Referring Provider [phone] Dr. Avinash Zepeda Attending Provider Song PARIMUTUEL TICKET CASHIER, PARIMUTUEL TICKET CASHIER-C Sherman Attending Provider [phone] Dr. Avinash Zepeda Other Provider Dr. Hank Gill Primary Care Provider [phone] Dr. Hank Gill Referring Provider [phone] Song PARIMUTUEL TICKET CASHIER, PARIMUTUEL TICKET CASHIER-C Sherman Attending Provider [phone] Gela Sr MD Primary Care Provider GELA SR Primary Care Unavailable Dr. Hank Gill MD Primary Care Provider Dr. Hank Gill MD Referring Provider [phone] Grantr PARIMUTUEL TICKET CASHIER-CLiana Attending Provider [phone] Grantr PARIMUTUEL TICKET CASHIER-CLiana Referring Provider [phone] Hank Gill Primary Care Unavailable GrantrLiana Attending Unavailable Jammie, Liana Referring Unavailable Hank Gill Attending Unavailable Hank Gill Referring Unavailable Lucas Gillbe Primary Care Unavailable [facility] Unavailable [facility] Referring Unavailable Liana Agudelo Attending Unavailable Medications Current Medications Medication Drug Class(es) Dates Sig (Normalized) Sig (Original) doxycycline hyclate 100 mg oral tablet (1 source) Tetracycline-class Drug Start: 09-08-2023 End: 09-15-2023 take 1 tablet by mouth twice daily doxycycline (VIBRA-TABS) 100 mg tablet Take 1 tablet by mouth two times a day for 7 days. 14 tablet 0 09/08/2023 09/15/2023 Active Comment on above: Take 1 tablet by dylan th two times a day for 7 days. meloxicam 15 mg oral tablet (1 source) Nonsteroidal Anti-inflammatory Drug Start: 11-08-2020 take 7.5-15 mg by mouth once daily Meloxicam (Mobic) 15 mg tablet Active 7.5 - 15 MG PO DAILY November 08, 2020 9:15am sildenafil 100 mg oral tablet (13 sources) Phosphodiesterase 5 Inhibitor Start: 03-15-2022 End: 12-05-2022 take 1 tablet by mouth once daily as needed Sildenafil (Viagra) 100 mg tablet Active 100 mg PO DAILY as needed for ed 19 08December 05, 2022 9:51am Start: 05-10-2019 End: 11-08-2020 take 1 tablet by mouth once daily as needed Sildenafil (Viagra) 100 mg tablet Discontinued 100 mg PO DAILY as needed for ed May 11, 2019 12:00am November 08, 2020 9:26am Comment on above: Take 1 tablet by dylan th as needed. Take 30 to 60min before sexual activity Completed/Discontinued Medications Medication Drug Class(es) Dates Sig (Normalized) Sig (Original) acetaminophen 300 mg / codeine phosphate 15 mg oral tablet (5 sources) Opioid Agonist Start: 11-28-2021 End: 12-10-2021 Acetaminophen-Codei ne 300-15 mg tablet Discontinued 1 {tbl} PO EVERY 6 HOURS as needed for pain November 28, 2021 12:00am December 10, 2021 8:32am Start: 11-28-2021 End: 12-10-2021 take 1 tablet by mouth every six hours Acetaminophen-Codeine Discontinued 1 TABLET PO EVERY 6 HOURS November 28, 2021 9:03am December 10, 2021 8:32am acetaminophen 325 mg / oxyCODONE hydrochloride 5 mg oral tablet (5 sources) Opioid Agonist Start: 06-01-2019 End: 06-07-2019 Oxycodone-Acetaminophen 1 TABLET tablet Discontinued 1 - 2 {tbl} PO EVERY 4 HOURS NEEDED as needed for Pain 30 June 01, 2019 June 06, 2019 1:00am June 07, 2019 1:08am Start: 06-01-2019 End: 06-07-2019 take 1 tablet by mouth every four hours as needed Oxycodone-Acetaminophen Discontinued 1 - 2 TABLET PO EVERY 4 HOURS NEEDED 30 June 01, 2019 June 07, 2019 1:08am benzonatate 100 mg oral capsule (1 source) Non-narcotic Antitussive Start: 09-08-2023 take 2 capsules by mouth every eight hours as needed benzonatate (TESSALON PERLES) 100 mg capsule Take 2 capsules by mouth three times a day as needed. 30 capsule 0 09/08/2023 Active Comment on above: Take 2 capsules by [facility] three times a day as needed. busPIRone hydrochloride 5 mg oral tablet (5 sources) Start: 06-14-2019 End: 11-08-2020 take 1 tablet by mouth twice daily Buspirone 5 mg tablet Discontinued 5 mg PO TWICE A DAY 60 June 14, 2019 1:00am November 08, 2020 9:10am citalopram 20 mg oral tablet (11 sources) Serotonin Reuptake Inhibitor Start: 05-04-2019 End: 07-08-2019 take 1 tablet by mouth once daily Citalopram 20 mg tablet Discontinued 20 mg PO DAILY 90 May 11, 2019 12:00am July 08, 2019 5:39pm Comment on above: Take 1 tablet by [facility] once daily. Needs appointment for additional refills DULoxetine 30 mg delayed release oral capsule (15 sources) Serotonin and Norepinephrine Reuptake Inhibitor Start: 07-08-2019 End: 11-08-2020 take 1 capsule by mouth twice daily Duloxetine 30 mg capsule,delayed release(DR/EC) Discontinued 30 mg PO TWICE A DAY 180 May 16, 2020 8:58am November 08, 2020 9:11am lansoprazole 30 mg delayed release oral capsule (20 sources) Proton Pump Inhibitor Start: 09-23-2018 End: 05-10-2024 take 1 capsule by mouth once daily Lansoprazole (Prevacid) 30 mg capsule,delayed release(DR/EC) Discontinued 30 mg PO DAILY 30 January 08, 2024 1:34pm May 10, 2024 9:26am Comment on above: Take 1 capsule by mo ut daily before breakfast. LORazepam 2 mg oral tablet (5 sources) Benzodiazepine Start: 11-21-2021 End: 12-10-2021 Lorazepam (Ativan) 2 mg tablet Discontinued 2 mg PO As Directed as needed for anxiety 1 November 21, 2021 12:00am December 10, 2021 8:33am pravastatin sodium 40 mg oral tablet (6 sources) HMG-CoA Reductase Inhibitor Start: 05-11-2019 End: 11-08-2020 take 1 tablet by mouth once daily Pravastatin 40 mg tablet Discontinued 40 mg PO DAILY 90 3 May 11, 2019 12:00am November 08, 2020 3:02pm Start: 07-15-2018 take 1 tablet by dylan th once daily pravastatin (PRAVACHOL) 10 mg tablet Indications: mixed hyperlipidemia TAKE 1 TABLET BY MOUTH ONCE DAILY 30 tablet 2 07/15/2018 Active Comment on above: TAKE 1 TABLET BY DYLAN TH ONCE DAILY QUEtiapine 25 mg oral tablet (5 sources) Atypical Antipsychotic Start: 11-09-19 End: 12-06-19 take 1 tablet by mouth twice daily Quetiapine (Seroquel) 25 mg tablet Discontinued 25 mg PO TWICE A DAY 60 1 November 08, 2020 12:00am December 05, 2021 8:13am rosuvastatin calcium 5 mg oral tablet (18 sources) HMG-CoA Reductase Inhibitor Start: 11-09-19 End: 05-10-20 take 1 tablet by mouth once daily Rosuvastatin 5 mg tablet Discontinued 5 mg PO DAILY 30 January 08, 2024 1:34pm May 10, 2024 9:26am Problems Active Problems Problem Classification Problem Date Documented Date Episodic/Chronic Abdominal hernia (5 sources) Left inguinal hernia ; Translations: [Unilateral inguinal hernia, without obstruction or gangrene, not specified as recurrent] 06-01-2019 Episodic Anxiety disorders (6 sources) Mixed anxiety and depressive disorder; Translations: [Other specified anxiety disorders] Onset: 02-21-2017 06-14-2019 Chronic Contraceptive and procreative management (20 sources) Patient encounter status; Translations: [Encounter for sterilization] Onset: 04-05-2016 Episodic Disorders of lipid metabolism (8 sources) Hyperlipidemia; Translations: [Hyperlipidemia, unspecified] Chronic Esophageal disorders (8 sources) Gastroesophageal reflux disease; Translations: [Gastro-esophageal reflux disease without esophagitis] Chronic External cause codes: Struck by; against (1 source) Striking against or struck by other objects, initial encounter; Translations: [Striking against or struck by other objects, initial encounter] Onset: 05-25-2020 External cause codes: Unspecified (1 source) Activity, other specified; Translations: [Activity, other specified] Onset: 05-25-2020 Mood disorders (5 sources) Depressive disorder; Translations: [Depression] 05-11-2019 Chronic Other screening for suspected conditions (not mental disorders or infectious disease) (6 sources) Encounter for screening for malignant neoplasm of colon; Translations: [Special screening for malignant neoplasms of colon] Episodic Other upper respiratory infections (1 source) Chronic sinusitis; Translations: [Chronic sinusitis, unspecified] 09-08-2023 Chronic Unclassified (2 sources) Invalid ICD10 Description; Translations: [Invalid ICD10 Description] Onset: 08-18-2020 Unclassified (1 source) COVID-19; Translations: [COVID-19] Onset: 08-18-2020 Past or Other Problems Problem Classification Problem Date Documented Date Episodic/Chronic Hemorrhoids (1 source) Thrombosed external hemorrhoids; Translations: [Perianal venous thrombosis] Onset: 05-27-2014 05-27-2014 Episodic Immunizations and screening for infectious disease (1 source) Encounter for screening for infections with a predominantly sexual mode of transmission; Translations: [Encounter for screening for infections with a predominantly sexual mode of transmission] Onset: 01-24-2025 Episodic Open wounds of extremities (3 sources) Laceration without foreign body, left thigh, initial encounter; Translations: [Laceration without foreign body, left thigh, initial encounter] Onset: 05-25-2020 Episodic Results Test Name Value Interpretation Reference Range Facility Internal Medicine Office Vis noel 05-16-2025 Internal Medicine Office Visit [facility] Internal Medicine [address] [place] [address] [place] [address] OFFICE VISIT Date of Service: 05/16/25 MR#: [id number] Acct: [id number] Name: LESA DUTTON CHANCE Rep #: [id number] : 1975 Provider: Dr. Hank holden MD Age/Sex: 49/M Location[place] [facility] Status: Signed Intake Vital Signs 01/18/25 11:01 05/16/25 09:33 Height 6 ft 3 in 6 ft 3 in Weight: 199 lb 206 lb BMI 24.8 25.7 BP 124/84 H 134/72 H Blood Pressure Location Lt brachial Lt brachial Position Sitting Sitting Respiration 16 18 Pulse 85 82 Pulse Source Monitor Monitor Temp 98.5 F 97.8 F Temp Source Temporal Temporal Pulse Oximetry (%) 96 98 Oxygen Delivery Method room air room air Intake Visit Reasons: Yearly Chief Complaint: YEARLY Is patient in pain?: No Allergies No Known Allergies Allergy (Verified 05/16/25 09:36) Medications ???Medication ???Instructions ???Recorded ???Confirmed ???Type sildenafil 100 mg tablet (Viagra) 100 mg PO DAILY PRN ed #30 tabs 0 12/05/22 05/16/25 Rx lansoprazole 30 mg capsule,delayed 30 mg PO DAILY #90 caps 05/02/25 05/16/25 Rx release (Prevacid) rosuvastatin 5 mg tablet 5 mg PO DAILY #90 tabs 05/02/25 Rx meloxicam 15 mg tablet 15 mg PO QDAY PRN pain #90 tabs 05/16/25 Rx Nurse's Note: pt has concerns for intermittent bilateral heel pain. pt reports that this started about 3-4 weeks ago. reports that it seems worse when first waking up in the am or after driving a long distance. PFSH Medical History Plantar fasciitis Preventative health care Elevated LFTs Redness of skin High cholesterol Easy bruising Gastric reflux Non-smoker History of stress test Encounter for preventative adult health care examination Left inguinal hernia Acid reflux Anxiety and depression Hyperlipemia Alcohol abuse Surgical History History of hernia repair Family History Grandfather Colon cancer Grandmother Breast cancer Father Hypertension Social History adopted: No household members: spouse and children number of children: 5 current occupational status: employed current occupation: [employer] pets and animals: No sexually active: Yes Smoking Status: Never smoker Smokeless tobacco user: chewing tobacco alcohol intake: former year quit: 2019 substance use type: does not use caffeine: Yes (2) Type: coffee what type of physical activity do you participate in: running and weight training frequency: 3-4 times per week seatbelt use: always do you feel safe at home: Yes HPI HPI Chief Complaint: YEARLY Details: LESA DUTTON, is a 49-year-old male presenting for an annual visit with new onset of heel/foot pain. The patient reports a 3-week history of heel pain, described as awful upon waking in the morning and improving slightly with ambulation. The pain is localized to the bottom and sides of the heel and is exacerbated by prolonged periods of inactivity, such as driving for 30 minutes. He has attempted to alleviate the pain through stretching exercises and walking on a treadmill at an incline for 30 minutes, which resulted in increased soreness for the remainder of the day. He has also reduced his usual daily walking exercise due to the pain. He wears good tennis shoes during exercise and cushioned flip-flops at home. He denies paresthesia in the feet. The patient is currently taking rosuvastatin and Prevacid. He denies hematochezia or melena and reports normal urination. He declines a flu vaccination. He has not had a dermatology visit. He reports improved sleep recently after a period of poor sleep. He had a colonoscopy in 2021. ROS Const Constitutional: No body ache, chills, excessive sweating, fatigue, fever(s), frequent falls, headache(s), snoring, weight change, sleep problems, abnormal sleep pattern or change in appetite Eyes Eyes: No blurry vision, change in vision, bulging eyes, floaters, visual disturbances, eye pain or Light sensitivity ENT ENT: No abnormal hearing, ear or mastoid pain, tinnitus, balance problems, nosebleed/epistaxis, nasal congestion, headache(s), neck pain or sore throat Resp Respiratory: No cough, excessive phlegm production, pain on inspiration, shortness of breath, snoring or wheezing Cardio Cardiology: No chest pain at rest, chest pain with exertion, excessive sweating, shortness of breath, dyspnea on exertion, lightheadedness, orthopnea or palpitations Gastro GI: No abdominal pain, change in bowel habits, constipation, cramping, diarrhea, nausea/dyspepsia or vomiting Genitourinary Male: No burning urination, (more content not included)... Normal [facility] GC Cultureon 01-19-2025 GCC NEISSERIA GONORRHOEAE is NOT isolated. Normal [facility] Comment on above: Performed By: #### L 509.8002, L3890.6006, M100.2000, M100.3300, L3000.0400 #### [facility] [address] [place], [place], [id number] Gram Stainon 01-19-2025 GS Gram Stain No organisms seen No cells seen Normal [facility] Comment on above: Performed By: #### L 509.8002, L3890.6006, M100.2000, M100.3300, L3000.0400 #### [facility] [address] [place], [place], [id number] GC cultureOrdered By: Wu Agudelo on 01-18-2025 Neisseria gonorrhoeae culture NEISSERIA GONORRHOEAE is NOT isolated. [facility] Gram stainOrdered By: Wu Agudelo on 01-18-2025 Microscopic observation Gram stain Nom (Unsp spec) [facility] HIVon 01-18-2025 HIV Non-Reactive Normal Nonreactive [facility] Comment on above: Result Comment: Non- Reactive Reactive Repeatedly reactive samples must be confirmed according to CDC recommended confirmatory algorithms. The subresults for either HIVAG or AHIV can be used as an aid in the selection of the confirmation algorithm for reactive samples. Send out specimens with Reactive results to [facility] for confirmation. Order the HIV antibody detection and differentiation: lc#[id number] Performed By: #### L 509.8002, L3890.6006, M100.2000, M100.3300, L3000.0400 #### [facility] [address] [place], [address] Hepatitis Expose Panelon Hep B David AB Normal [facility] Comment on above: Result Comment: UNAB LE TO PERFORM TESTING DUE TO UNAVAILABLE REAGENTS Performed By: #### L 509.8002, L3890.6006, M100.2000, M100.3300, L3000.0400 #### [facility] [address] [place], [address] HEP B SURF AG Normal [facility] Comment on above: Result Comment: UNAB LE TO PERFORM TESTING DUE TO UNAVAILABLE REAGENTS Performed By: #### L 509.8002, L3890.6006, M100.2000, M100.3300, L3000.0400 #### [facility] [address] [place], [address] HEP C VIRUS AB Normal [facility] Comment on above: Result Comment: UNAB LE TO PERFORM TESTING DUE TO UNAVAILABLE REAGENTS Performed By: #### L 509.8002, L3890.6006, M100.2000, M100.3300, L3000.0400 #### [facility] [address] [place], [address] Internal Medicine Office Vis itoxin 01-18-2025 Internal Medicine Office Visit [facility] [address] [place], [place] [address] OFFICE VISIT Date of Service: 01/18/25 MR#: [id number] Acct: [id number] Name: LESA DUTTON CHANCE Rep #: [id number] : 1975 Provider: YUNIEL galvan Age/Sex: 49/M Location[place] [facility] Status: Signed Intake Vital Signs 05/10/24 08:17 01/18/25 11:01 Height 6 ft 3 in 6 ft 3 in Weight: 212 lb 199 lb BMI 26.4 24.8 BP 114/70 124/84 H Blood Pressure Location Lt brachial Lt brachial Position Sitting Sitting Respiration 18 16 Pulse 99 85 Pulse Source Monitor Monitor Temp 98.1 F 98.5 F Temp Source Temporal Temporal Pulse Oximetry (%) 97 96 Oxygen Delivery Method room air room air Intake Visit Reasons: STD TESTING Chief Complaint: STD TESTING Is patient in pain?: No Allergies No Known Allergies Allergy (Verified 01/18/25 10:59) Medications ???Medication ???Instructions ???Recorded ???Confirmed ???Type sildenafil 100 mg tablet (Viagra) 100 mg PO DAILY PRN ed #30 tabs 0 12/05/22 01/18/25 Rx lansoprazole 30 mg capsule,delayed 30 mg PO DAILY #90 caps 05/10/24 01/18/25 Rx release (Prevacid) rosuvastatin 5 mg tablet 5 mg PO DAILY #90 tabs 05/10/24 Rx Nurse's Note: PATIENT REPORTS THAT CURRENT PARTNER WOULD LIKE STD TESTING DONE. PFSH Medical History Preventative health care Elevated LFTs Redness of skin High cholesterol Easy bruising Gastric reflux Non-smoker History of stress test Encounter for preventative adult health care examination Left inguinal hernia Acid reflux Anxiety and depression Hyperlipemia Alcohol abuse Surgical History History of hernia repair Family History Grandfather Colon cancer Grandmother Breast cancer Father Hypertension Social History adopted: No household members: spouse and children number of children: 5 current occupational status: employed current occupation: [employer] pets and animals: No sexually active: Yes Smoking Status: Never smoker Smokeless tobacco user: chewing tobacco alcohol intake: former year quit: 2019 substance use type: does not use caffeine: Yes (2) Type: coffee what type of physical activity do you participate in: running and weight training frequency: 3-4 times per week seatbelt use: always do you feel safe at home: Yes HPI HPI Chief Complaint: STD TESTING Details: LESA DUTTON, is a 49 M who presents to the office today for routine STD testing. Patient denies any known exposure to STDs. States he has a new girlfriend who requested he get a complete STD testing done. He states she had testing done recently and it was all negative. He has no signs or symptoms no open sores of the genitals no pain or burning with urination no urinary frequency no drainage from genitals. No new rashes. Discussed risk factors. States he has in the past had cold sores around his mouth only. ROS Const Constitutional: No body ache, chills, excessive sweating, fatigue, fever(s), frequent falls, headache(s), snoring, weakness, sleep problems or change in appetite Eyes Eyes: No blurry vision, change in vision or Light sensitivity ENT ENT: No abnormal hearing, ear or mastoid pain, tinnitus, nasal congestion, nasal discharge, headache(s), neck pain or sore throat Resp Respiratory: No cough, shortness of breath, snoring or wheezing Cardio Cardiology: No chest pain at rest, chest pain with exertion, excessive sweating, shortness of breath, dyspnea on exertion, lightheadedness, orthopnea or palpitations Gastro GI: No abdominal pain, change in bowel habits, constipation, cramping, diarrhea or nausea/dyspepsia Genitourinary Male: Positive for other (REQUESTING TESTING; NO SYMPTOMS NOTED AT THIS TIME.); No burning urination, painful urination, urinary incontinence or urinary frequency Musc Musculoskeletal: No abnormal gait, joint pain, back pain, limited range of motion, muscle weakness, neck pain or numbness Skin Skin: No dry skin, redness, lesions, itchy eyes, rash or wounds Neuro Neurology: No abnormal gait, abnormal hearing, weakness, frequent falls, headache(s), memory loss or numbness Psych Psychiatric: No anxiety, No change in appetite, No depression, No memory loss, No panic attacks and No Thoughts of harming yourself/Others Endo Endocrine: No cold intolerance, excessive sweating, fatigue, flushing, heat intolerance, increased thirst/drinking or increased hunger Aller/Imm Allergy/Immunologic: No itchy eyes, seasonal allergy symptoms, hives or wheezing Sebastian/Lymp Hematologic/Lymphati c: No easy bleeding or enlarged lymph nodes Exam Const General: cooperative, no acute distress, well groomed a (more content not included)... Normal [facility] No Panel InformationOrdered By: Liana Agudelo on 01-18-2025 HIV (1&2) Antibody Non-Reactive Nonreactive [facility] Comment on above: Non-ReactiveReactive Repeatedly reactive samples must be confirmed according to CDC recommended confirmatory algorithms. The subresults for either HIVAG or AHIV can be used as an aid in the selection of the confirmation algorithm for reactive samples.Send out specimens with Reactive results to [facility] for confirmation.Order the HIV antibody detection and differentiation: #[id number] Syphilis Antibodieson 2024 Syphilis Abs Non-Reactive Normal Nonreactive [facility] Comment on above: Performed By: #### L 509.8002, L3890.6006, M100.2000, M100.3300, L3000.0400 #### [facility] [address], [address] CNOVon 09-08-2023 CNOV Office Visit ([facility]) LESA DUTTON ([id number]) 1975 M Date Time Provider Department 09/08/23 1:45 PM MARICEL FLOWER [facility] During your visit today, we recorded the following information about you: Temperature Pulse Respiration Blood pressure 98.7 degrees 79/minute 20/minute 137/75 Weight 97.5 kg Maricel Flower PA-C 09/08/2023 2:34 PM Signed [facility] as well Maricel Flower PA-C 09/08/2023 3:17 PM Signed This note was created using Hypejarriter. Subjective Lesa Dutton is a 48 year old male. HPI Patient presents with cough and congestion over the past week. He states the past few days it seems to worsen. He thinks he may have had a fever the first 2 days but has not noticed one since then. He states cough is kept him up at night. He has tried some [id number] cough medicines here and there. Denies history of asthma. No chest pain or shortness of breath. His family all had been sick around the same time as well. He has had worsening sinus pressure the past few days as well. Review of Systems Constitutional: Positive for fatigue and fever. HENT: Positive for congestion, postnasal drip, sinus pressure and sinus pain. Respiratory: Positive for cough. Negative for shortness of breath and wheezing. Cardiovascular: Negative. Gastrointestinal: Negative. Genitourinary: Negative. Musculoskeletal: Negative. All other systems reviewed and are negative. PAST MEDICAL HISTORY Diagnosis Date GERD (gastroesophageal reflux disease) Current Outpatient Medications Medication Sig Dispense Refill rosuvastatin (CRESTOR) 5 mg tablet lansoprazole (PREVACID) 30 mg capsule Take 1 capsule by mouth daily before breakfast. 90 capsule 3 doxycycline (VIBRA-TABS) 100 mg tablet Take 1 tablet by mouth two times a day for 7 days. 14 tablet 0 benzonatate (TESSALON PERLES) 100 mg capsule Take 2 capsules by mouth three times a day as needed. 30 capsule 0 sildenafil (VIAGRA) 100 mg tablet Take 1 tablet by mouth as needed. Take 30 to 60min before sexual activity (Patient not taking: Reported on 09/08/2023) 90 tablet 1 citalopram (CELEXA) 20 mg tablet Take 1 tablet by mouth once daily. Needs appointment for additional refills 30 tablet 0 pravastatin (PRAVACHOL) 10 mg tablet TAKE 1 TABLET BY MOUTH ONCE DAILY (Patient not taking: Reported on 09/08/2023) 30 tablet 2 No current facility-administere d medications for this visit. PAST SURGICAL HISTORY Procedure Laterality Date ESOPHAGOGASTRODUODEN OSCOPY TRANSORAL DIAGNOSTIC 05/10/16 EGD HERNIA REPAIR HX Right inguinal LASIK FAMILY HISTORY Problem Relation Age of Onset Hypertension Father Cancer Maternal Grandmother Colon Cancer Paternal Grandfather Breast Cancer Paternal Grandmother Social History Tobacco Use Smoking status: Never Smokeless tobacco: Current Types: Chew Tobacco comments: goes through a can a week. Substance Use Topics Alcohol use: No Drug use: No Objective BP 137/75 Pulse 79 Temp 37.1 ?C (98.7 ?F) Resp 20 Wt 97.5 kg (215 lb) SpO2 96% BMI 26.52 kg/m? Physical Exam Vitals reviewed. Constitutional: Appearance: Normal appearance. HENT: Head: Normocephalic and atraumatic. Right Ear: Tympanic membrane, ear canal and external ear normal. Left Ear: Tympanic membrane, ear canal and external ear normal. Nose: Congestion present. Right Sinus: Maxillary sinus tenderness present. Left Sinus: Maxillary sinus tenderness present. Mouth/Throat: Mouth: Mucous membranes are moist. Pharynx: Oropharynx is clear. Cardiovascular: Rate and Rhythm: Normal rate and regular rhythm. Heart sounds: Normal heart sounds. Pulmonary: Effort: Pulmonary effort is normal. Comments: Some crackles in the left lower lung Musculoskeletal: Cervical back: Neck supple. Skin: General: Skin is warm and dry. Neurological: Mental Status: He is alert. Assessment and Plan ASSESSMENT/PLAN: 1. Sinobronchitis - ICD9: 473.9, 490, ICD10: J32.9, J40 - Will begin treatment with Doxycycline and tessalon, flonase recommended otc - Supportive care with plenty of fluids, rest, and analgesia prn. - Follow up in 3-5 days if symptoms persist or worsen. SANJEEV Tuttle-C Allergies As of Date: 09/08/2023 (No Known Allergies) Date Reviewed: 09/08/2023 Reviewed by: Samina Killian MA - Fully Assessed Reason for Visit: Cough [28] Cmt: Bodyaches, ROSALES, sinus congestion, ST x1 week Primary Visit Diagnosis:Sinobronch itis [J32.9, J40] Order(s):doxycycline (VIBRA-TABS) 100 mg tabletTake 1 tablet by mouth two times a day for 7 days.Disp: 14 tabletRfl: 0 benzonatate (TESSALON PERLES) 100 mg capsuleTake 2 capsules by mouth three times a day as needed.Disp: 30 capsuleRfl: 0 Prescriptions as of 09/08/2023 - rosuvastatin (CRESTOR) 5 mg tablet - doxycycline (VIBRA-TABS) 100 mg tablet Take 1 tablet by mouth two times a day for 7 (more content not included)... Normal [facility] Basophil percentageOrdered B y: Hank Gill on 02-19-2023 Bilirubin [Mass/Vol] 1.10 mg/dL 0.20-1.00 [facility] Comment on above: For patients on eltr ombopag therapy, use of [facility] TBIL is not recommended. Chloride [Moles/Vol] 103 mmol/L 98-107 [facility] Glucose [Mass/Vol] 97 mg/dL 74-106 [facility] Potassium [Moles/Vol] 4.1 mmol/L 3.5-5.1 [facility] Protein [Mass/Vol] 7.5 g/dL 6.4-8.2 [facility] Sodium [Moles/Vol] 137 mmol/L 136-145 [facility] Laboratory - Chemistry and C hemistry - challengeOrdered By: Hank Gill on 02-19-2023 ALP [Catalytic activity/Vol] 65 U/L 45-117 [facility] ALT [Catalytic activity/Vol] 33 U/L 16-61 [facility] CO2 [Moles/Vol] 29.0 mmol/L 21.0-32.0 [facility] Globulin (S) [Mass/Vol] 3.1 g/dL 2.2-4.2 [facility] Urea nitrogen/Creatinine [Mass ratio] 16.3 mg/mg 10-20 [facility] No Panel InformationOrdered By: Hank Gill on 02-19-2023 Estimated GFR (MDRD) Amer 98 mL/min >60 [facility] Comment on above: GFR Calc Estimated GFR (MDRD) Non-Af Amer 81 mL/min >60 [facility] Comment on above: Non- GFR Calc Serum or plasma albumin bandar urement (mass/volume)Ordered By: Hank Gill on 02-19-2023 Albumin [Mass/Vol] 4.4 g/dL 3.2-5.0 [facility] Serum or plasma albumin/glob ulin mass ratioOrdered By: Hank Gill on 02-19-2023 Albumin/Globulin [Mass ratio] 1.4 {ratio} 0.9-2.4 [facility] Serum or plasma calcium bandar urement (mass/volume)Ordered By: Hank Gill on 02-19-2023 Calcium [Mass/Vol] 9.3 mg/dL 8.5-10.1 [facility] Serum or plasma creatinine m easurement (mass/volume)Ordered By: Hank Gill on 02-19-2023 Creatinine [Mass/Vol] 1.04 mg/dL 0.70-1.30 [facility] Comment on above: The validity of the calculated GFR & GFRAA in patients over 70 years has not been determined. Clinical correlation is essential. Serum or plasma urea nitroge n measurement (mass/volume)Ordered By: Hank Gill on 02-19-2023 Urea nitrogen [Mass/Vol] 17 mg/dL -18 [facility] Thin prep Papanicolaou smear with manual screeningOrdered By: Hank Gill on 02-19-2023 Thin prep Papanicolaou smear with manual screening 26 U/L 15-37 [facility] Thin prep Papanicolaou smear with manual screening 5 5-15 [facility] Absolute lymphocyte countOrd ered By: Sherman Song on 12-05-2022 Lymphocytes Auto (Unsp spec) [#/Vol] 0.76 10*3/uL 0.83-4.51 [facility] Basophil percentageOrdered B y: Sherman Song on 12-05-2022 Basophils/100 WBC (Bld) 0.2 % 0-1 [facility] Bilirubin [Mass/Vol] 1.00 mg/dL 0.20-1.00 [facility] Comment on above: For patients on eltr ombopag therapy, use of [facility] TBIL is not recommended. Chloride [Moles/Vol] 105 mmol/L 98-107 [facility] Cholesterol [Mass/Vol] 194 mg/dL <200 [facility] Comment on above: <200 mg/dL Desirable 200-240 mg/dL Borderline >240 mg/dL High Risk Eosinophils/100 WBC (Bld) 0.6 % 0-5 [facility] Glucose [Mass/Vol] 80 mg/dL 74-106 [facility] Neutrophils (Bld) [#/Vol] 3.6 10*3/uL 2.0-7.7 [facility] Neutrophils/100 WBC (Bld) 75.8 % 47-70 [facility] Potassium [Moles/Vol] 4.6 mmol/L 3.5-5.1 [facility] Protein [Mass/Vol] 7.8 g/dL 6.4-8.2 [facility] Sodium [Moles/Vol] 137 mmol/L 136-145 [facility] Triglyceride [Mass/Vol] 74 mg/dL <199 [facility] Comment on above: The drugs N-Acetylcy steine and Metamizole may falsely depress this assay.Serum Triglycerides Reference Interval Normal <150 mg/dL Borderline high 150 - 199 mg/dL High 200 - 499 mg/dL Very High > or = 500 mg/dL WBC (Bld) [#/Vol] 4.7 10*3/uL 4.4-11.0 [facility] Blood erythrocytes count (nu mber/volume)Ordered By: Sherman Zuleta on 12-05-2022 RBC (Bld) [#/Vol] 5.18 10*6/uL 4.6-6.2 [facility] Blood hemoglobin measurement (mass/volume)Ordered By: Sherman Zuleta on 12-05-2022 Hemoglobin (Bld) [Mass/Vol] 16.1 g/dL 13.0-16.5 [facility] Blood lymphocytes/100 leukoc ytesOrdered By: Sherman Zuleta on 12-05-2022 Lymphocytes/100 WBC (Bld) 16.0 % 19-41 [facility] Blood monocytes/100 leukocyt esOrdered By: Sherman Zuleta on 12-05-2022 Monocytes/100 WBC (Bld) 7.2 % 0-10 [facility] Blood platelet mean volumeOr dered By: Sherman Zuleta on 12-05-2022 Platelet mean volume (Bld) [Entitic vol] 9.6 fL 6.2-12.0 [facility] Determination of erythrocyte mean corpuscular volume (MCV)Ordered By: Sherman Zuleta on 12-05-2022 MCV (RBC) [Entitic vol] 94.6 fL 80-94 [facility] Hematocrit Auto (Bld) [Volum e fraction]Ordered By: Sherman Zuleta on 12-05-2022 Hematocrit (Bld) [Volume fraction] 49.0 % 40-54 [facility] Laboratory - Chemistry and C hemistry - challengeOrdered By: Sherman Zuleta on 12-05-2022 ALP [Catalytic activity/Vol] 69 U/L 45-117 [facility] ALT [Catalytic activity/Vol] 45 U/L 16-61 [facility] CO2 [Moles/Vol] 26.0 mmol/L 21.0-32.0 [facility] Globulin (S) [Mass/Vol] 3.5 g/dL 2.2-4.2 [facility] Urea nitrogen/Creatinine [Mass ratio] 25.0 mg/mg 10-20 [facility] Laboratory - Hematology and Cell countsOrdered By: Sherman Zuleta on 12-05-2022 Erythrocyte distribution width (RBC) [Entitic vol] 42.6 fL 35.1-43.9 [facility] Erythrocyte distribution width (RBC) [Ratio] 12.2 % 11.6-14.6 [facility] Immature granulocytes/100 WBC (Bld) 0.200 % 0.0-0.9 [facility] Comment on above: IG% - Immature Granu locytes (promyelocytes, myelocytes and metamyelocytes) > 1% indicates that a LEFT SHIFT is Present. MCH (RBC) [Entitic mass] 31.1 pg 27.0-32.0 [facility] Nucleated RBC/100 WBC (Bld) [Ratio] 0 % 0-5 [facility] MCHC Auto (RBC) [Mass/Vol]Or dered By: Sherman Zuleta on 12-05-2022 MCHC (RBC) [Mass/Vol] 32.9 g/dL 32-36 [facility] No Panel InformationOrdered By: Sherman Zuleta on 12-05-2022 Estimated GFR (MDRD) Amer 94 mL/min >60 [facility] Comment on above: GFR Calc Estimated GFR (MDRD) Non-Af Amer 77 mL/min >60 [facility] Comment on above: Non- GFR Calc Hepatitis B Surface Antigen Non-Reactive Nonreactive [facility] Hepatitis C Antibody Non-Reactive Nonreactive [facility] Comment on above: Non Reactive: < 0.8 Equivocal: >/= 0.8 to < 1.0 Reactive: >/= 1.0The CDC recommends that a reactive/equivocal HCV antibody result be followed up by the HCV Nucleic Acid Amplificationtest ([id number]) Thyroid Stimulating Hormone (TSH) 1.87 uIU/mL 0.358-3.74 [facility] Platelets bldOrdered By: Eliza Zuleta on 12-05-2022 Platelets (Bld) [#/Vol] 197 10*3/uL 150-450 [facility] Serum or plasma albumin bandar urement (mass/volume)Ordered By: Sherman Zuleta on 12-05-2022 Albumin [Mass/Vol] 4.3 g/dL 3.2-5.0 [facility] Serum or plasma albumin/glob ulin mass ratioOrdered By: Sherman Zuleta on 12-05-2022 Albumin/Globulin [Mass ratio] 1.2 {ratio} 0.9-2.4 [facility] Serum or plasma calcium bandar urement (mass/volume)Ordered By: Sherman Zuleta on 12-05-2022 Calcium [Mass/Vol] 9.6 mg/dL 8.5-10.1 [facility] Serum or plasma cholesterol in HDL measurement (mass/volume)Ordered By: Sherman Zuleta on 12-05-2022 Cholesterol in HDL [Mass/Vol] 58 mg/dL >40 [facility] Comment on above: The drugs N-Acetylcy steine and Metamizole may falsely depress this assay. Reference Range HDL <40 mg/dL Low HDL Cholesterol HDL >or= 60 mg/dL High HDL Cholesterol Serum or plasma cholesterol in VLDL measurement (mass/volume)Ordered By: Sherman Zuleta on 12-05-2022 Cholesterol in VLDL [Mass/Vol] 15 mg/dL 5-40 [facility] Serum or plasma creatinine m easurement (mass/volume)Ordered By: Sherman Zuleta on 12-05-2022 Creatinine [Mass/Vol] 1.08 mg/dL 0.70-1.30 [facility] Comment on above: The validity of the calculated GFR & GFRAA in patients over 70 years has not been determined. Clinical correlation is essential. Serum or plasma low density lipoprotein (LDL) cholesterol measurement (mass/volume)Ordered By: Sherman Zuleta on 12-05-2022 Cholesterol in LDL [Mass/Vol] 121 mg/dL 0-130 [facility] Serum or plasma urea nitroge n measurement (mass/volume)Ordered By: Sherman Zuleta on 12-05-2022 Urea nitrogen [Mass/Vol] 27 mg/dL 7-18 [facility] Thin prep Papanicolaou smear with manual screeningOrdered By: Sherman Zuleta on 12-05-2022 Thin prep Papanicolaou smear with manual screening 101 U/L 15-37 [facility] Thin prep Papanicolaou smear with manual screening 6 5-15 [facility] Absolute lymphocyte counton 12-05-2021 Lymphocytes Auto (Unsp spec) [#/Vol] 0.91 10*3/uL 0.83-4.51 [facility] Work Phone: Basophil percentageon 2021 Basophils/100 WBC (Bld) 0.3 % 0-1 [facility] Work Phone: Bilirubin [Mass/Vol] 0.80 mg/dL 0.20-1.00 [facility] Work Phone: Comment on above: For patients on eltr ombopag therapy, use of [facility] TBIL is not recommended. Chloride [Moles/Vol] 106 mmol/L 98-107 [facility] Work Phone: Cholesterol [Mass/Vol] 181 mg/dL <200 [facility] Work Phone: Comment on above: <200 mg/dL Desirable 200-240 mg/dL Borderline >240 mg/dL High Risk Eosinophils/100 WBC (Bld) 2.0 % 0-5 [facility] Work Phone: Glucose [Mass/Vol] 98 mg/dL 74-106 [facility] Work Phone: Neutrophils (Bld) [#/Vol] 2.2 10*3/uL 2.0-7.7 [facility] Work Phone: Neutrophils/100 WBC (Bld) 60.7 % 47-70 [facility] Work Phone: Potassium [Moles/Vol] 4.3 mmol/L 3.5-5.1 [facility] Work Phone: Protein [Mass/Vol] 7.4 g/dL 6.4-8.2 [facility] Work Phone: Sodium [Moles/Vol] 140 mmol/L 136-145 [facility] Work Phone: Triglyceride [Mass/Vol] 114 mg/dL [facility] Work Phone: Comment on above: The drugs N-Acetylcy steine and Metamizole may falsely depress this assay.Serum Triglycerides Reference Interval Normal <150 mg/dL Borderline high 150 - 199 mg/dL High 200 - 499 mg/dL Very High > or = 500 mg/dL WBC (Bld) [#/Vol] 3.6 10*3/uL 4.4-11.0 [facility] Work Phone: [phone] Blood erythrocytes count (nu mber/volume)on 12-05-2021 RBC (Bld) [#/Vol] 5.07 10*6/uL 4.6-6.2 [facility] Work Phone: [phone] Blood hemoglobin measurement (mass/volume)on 12-05-2021 Hemoglobin (Bld) [Mass/Vol] 15.7 g/dL 13.0-16.5 [facility] Work Phone: [phone] Blood lymphocytes/100 leukoc yteson 12-05-2021 Lymphocytes/100 WBC (Bld) 25.5 % 19-41 [facility] Work Phone: [phone] Blood monocytes/100 leukocyt eson 12-05-2021 Monocytes/100 WBC (Bld) 11.2 % 0-10 [facility] Work Phone: [phone] Blood platelet mean volumeon 12-05-2021 Platelet mean volume (Bld) [Entitic vol] 9.9 fL 6.2-12.0 [facility] Work Phone: [phone] Determination of erythrocyte mean corpuscular volume (MCV)on 12-05-2021 MCV (RBC) [Entitic vol] 94.9 fL 80-94 [facility] Work Phone: [phone] Hematocrit Auto (Bld) [Volum e fraction]on 12-05-2021 Hematocrit (Bld) [Volume fraction] 48.1 % 40-54 [facility] Work Phone: [phone] Laboratory - Chemistry and C hemistry - challengeon 12-05-2021 ALP [Catalytic activity/Vol] 59 U/L 45-117 [facility] Work Phone: ALT [Catalytic activity/Vol] 26 U/L 16-61 [facility] Work Phone: [phone] CO2 [Moles/Vol] 28.0 mmol/L 21.0-32.0 [facility] Work Phone: [phone] Globulin (S) [Mass/Vol] 3.2 g/dL 2.2-4.2 [facility] Work Phone: [phone] Urea nitrogen/Creatinine [Mass ratio] 16.3 mg/mg 10-20 [facility] Work Phone: [phone] Laboratory - Hematology and Cell countson 12-05-2021 Erythrocyte distribution width (RBC) [Entitic vol] 43.5 fL 35.1-43.9 [facility] Work Phone: [phone] Erythrocyte distribution width (RBC) [Ratio] 12.5 % 11.6-14.6 [facility] Work Phone: [phone] Immature granulocytes/100 WBC (Bld) 0.300 % 0.0-0.9 [facility] Work Phone: [phone] Comment on above: IG% - Immature Granu locytes (promyelocytes, myelocytes and metamyelocytes) > 1% indicates that a LEFT SHIFT is Present. MCH (RBC) [Entitic mass] 31.0 pg 27.0-32.0 [facility] Work Phone: [phone] Nucleated RBC/100 WBC (Bld) [Ratio] 0 % 0-5 [facility] Work Phone: [phone] MCHC Auto (RBC) [Mass/Vol]on 12-05-2021 MCHC (RBC) [Mass/Vol] 32.6 g/dL 32-36 [facility] Work Phone: [phone] Panel Informationon 12-05 Estimated GFR (MDRD) Amer 105 mL/min >60 [facility] Work Phone: [phone] Comment on above: GFR Calc Estimated GFR (MDRD) Non-Af Amer 87 mL/min >60 [facility] Work Phone: [phone] Comment on above: Non- GFR Calc Thyroid Stimulating Hormone (TSH) 1.78 uIU/mL 0.358-3.74 [facility] Work Phone: [phone] Platelets bldon 05-18-2022 Platelets (Bld) [#/Vol] 180 10*3/uL 150-450 [facility] Work Phone: Serum or plasma albumin bandar urement (mass/volume)on 12-05-2021 Albumin [Mass/Vol] 4.2 g/dL 3.2-5.0 [facility] Work Phone: [phone] Serum or plasma albumin/glob ulin mass ratioon 12-05-2021 Albumin/Globulin [Mass ratio] 1.3 {ratio} 0.9-2.4 [facility] Work Phone: [phone] Serum or plasma calcium bandar urement (mass/volume)on 12-05-2021 Calcium [Mass/Vol] 8.9 mg/dL 8.5-10.1 [facility] Work Phone: Serum or plasma cholesterol in HDL measurement (mass/volume)on 12-05-2021 Cholesterol in HDL [Mass/Vol] 58 mg/dL [facility] Work Phone: Comment on above: The drugs N-Acetylcy steine and Metamizole may falsely depress this assay. Reference Range HDL <40 mg/dL Low HDL Cholesterol HDL >or= 60 mg/dL High HDL Cholesterol Serum or plasma cholesterol in VLDL measurement (mass/volume)on 12-05-2021 Cholesterol in VLDL [Mass/Vol] 23 mg/dL 5-40 [facility] Work Phone: Serum or plasma creatinine m easurement (mass/volume)on 12-05-2021 Creatinine [Mass/Vol] 0.98 mg/dL 0.70-1.30 [facility] Work Phone: Comment on above: The validity of the calculated GFR & GFRAA in patients over 70 years has not been determined. Clinical correlation is essential. Serum or plasma low density lipoprotein (LDL) cholesterol measurement (mass/volume)on 12-05-2021 Cholesterol in LDL [Mass/Vol] 100 mg/dL 0-130 [facility] Work Phone: Serum or plasma urea nitroge n measurement (mass/volume)on 12-05-2021 Urea nitrogen [Mass/Vol] 16 mg/dL 7-18 [facility] Work Phone: Thin prep Papanicolaou smear with manual screeningon 12-05-2021 Thin prep Papanicolaou smear with manual screening 21 U/L 15-37 [facility] Work Phone: Thin prep Papanicolaou smear with manual screening 6 5-15 [facility] Work Phone: CORONAVIRUS PCR [CCL]on 07-23 SEND TO IC? YES Normal [facility] Comment on above: Performed By: #### [id number] #### [address] [address] COVID 19 Result [employer] Positive Abnormal [facility] Comment on above: Result Comment: Posi tive for COVID19 (SARS CoV2) by PCR.(*) This test was developed and its performance characteristics determined by [facility]'s [facility] and [facility] Medicine [place]. This test has been authorized by FDA under an Emergency Use Authorization (EUA). This test has been validated in accordance with the FDA's Guidance Document Policy for Diagnostics Testing in Laboratories Certified to Perform High Complexity Testing under CLIA prior to Emergency use Authorization for Coronavirus Disease 2019 during the Public Health Emergency issued on September 18, 2019. [facility] Laboratories [facility] [place] [address] Ludwin Romero III, M.D. [id number] Performed By: #### [id number] #### [address] [address] COVID 19 Source [employer] Nasopharyngeal Swab Normal [facility] Comment on above: Result Comment: Andrew ected on 08/19 AT 0057: Previously reported as U Performed By: #### [id number] #### [address] [address] Coronavirus 2019on COVID 19 Result [employer] Abnormal Negative for COVID19 (SARS CoV2) by PCR. [facility] Comment on above: Result Comment: Posi tive for This test was developed and its performance characteristics determined by [facility]'s [facility] Pathology and Laboratory Medicine [place]. This test has been authorized by FDA under an Emergency Use Authorization (EUA). This test has been validated in accordance with the FDA's Guidance Document Policy for Diagnostics Testing in Laboratories Certified to Perform High Complexity Testing under CLIA prior to Emergency use Authorization for Coronavirus Disease 2019 during the Public Health Emergency issued on September 18, 2019. COVID19 (SARS This test was developed and its performance characteristics determined by [facility]'s [facility] and Laboratory Medicine [place]. This test has been authorized by FDA under an Emergency Use Authorization (EUA). This test has been validated in accordance with the FDA's Guidance Document Policy for Diagnostics Testing in Laboratories Certified to Perform High Complexity Testing under CLIA prior to Emergency use Authorization for Coronavirus Disease 2019 during the Public Health Emergency issued on September 18, 2019. CoV2) by This test was developed and its performance characteristics determined by [facility]'s [facility] Pathology and Laboratory Medicine [place]. This test has been authorized by FDA under an Emergency Use Authorization (EUA). This test has been validated in accordance with the FDA's Guidance Document Policy for Diagnostics Testing in Laboratories Certified to Perform High Complexity Testing under CLIA prior to Emergency use Authorization for Coronavirus Disease 2019 during the Public Health Emergency issued on September 18, 2019. PCR.(*) This test was developed and its performance characteristics determined by [facility] Pathology and Laboratory Medicine [place]. This test has been authorized by FDA under an Emergency Use Authorization (EUA). This test has been validated in accordance with the FDA's Guidance Document Policy for Diagnostics Testing in Laboratories Certified to Perform High Complexity Testing under CLIA prior to Emergency use Authorization for Coronavirus Disease 2019 during the Public Health Emergency issued on September 18, 2019. Coronavirus 2019on 1 COVID 19 Source [employer] Normal [facility] Comment on above: Result Comment: Naso pharyngeal Corrected on 08/19 AT 0057: Previously reported as U Swab Corrected on 08/19 AT 0057: Previously reported as U EMERGENCY REPORTon 0 EMERGENCY REPORT [facility] EMERGENCY ROOM REPORT NAME ACCOUNT SEX AGE ADMIT DISCHARGE PT MED. RECORD# NUMBER DATE DATE TYPE LESA DUTTON [id number] M 44 05/25/20 05/25/20 3 C [id number] ROOM: ER DATE OF : 1975 DICTATING PHYSICIAN: Cielo Talley CHIEF COMPLAINT: Laceration of the left thigh. HISTORY OF PRESENT ILLNESS: He was outside cutting wood with a chainsaw. He said that as soon as it hit his jeans he must have pulled it away because he has a fairly superficial two lacerations that are not actively bleeding. One is 4 cm in diameter and the other one just below it is 2.0 cm. It is not down to the muscle. Blood is controlled. There is no blood disorder. He has walked on it. There is no numbness, tingling or weakness to the lower extremities. PAST MEDICAL HISTORY: None. PAST SURGICAL HISTORY: None. MEDICATIONS: None. SOCIAL HISTORY: Negative for alcohol, tobacco or illicit drug abuse. REVIEW OF SYSTEMS: As stated above. PHYSICAL EXAMINATION: VITAL SIGNS: Pulse 87, respiratory rate 20, afebrile, O2 saturation 97% on room air. GENERAL: Awake and alert, nontoxic. No acute distress. HEART: Regular rate and rhythm without murmur, gallop or rub. LUNGS: Clear to auscultation bilaterally without wheezes, rales or rhonchi. EXTREMITIES: We focused the physical exam over the anterior thigh. He has a 4.0 cm linear laceration with bleeding well controlled. It is not down to the muscle. There does not appear to be any deep defects. Just inferior to that is a 2.0 cm linear laceration. EMERGENCY DEPARTMENT COURSE AND TREATMENT: The area is prepped and draped in the usual sterile fashion, anesthetized and explored. There are no deep wounds. I palpated all the way throughout the internal wound, and it does not go down below subcutaneous fat. I placed 9 interrupted 5-0 sutures to approximate the superior wound and 4 interrupted 5-0 Ethilon were used to approximate the inferior wound. Antibiotic ointment and dressing was applied. Tetanus was updated. DIAGNOSES: 1. 4.0 cm left thigh laceration, repair. Page 1 of 2 [facility] Emergency Room Report LESA DUTTON : 1975 2. 2.0 cm left thigh laceration, repair. PLAN/DISPOSITION: I gave him 4 pain pills that he can take if he needs for severe pain. Follow up with primary care in 2 days for recheck and 10 days for suture removal. Return for increasing, worsening or new symptoms. Dictated By: Cielo Talley DO 05/26/20 10:32 JOB #: [id number] Transcribed By: sari 05/27/20 07:38 Electronically signed by: E-Sign: CIELO TALLEY MD 05/29/20 11:04 Page 2 of 2 [facility] Emergency Room Report Normal [facility] RPRon 08-25-2019 Reagin Ab RPR Ql (S) Nonreactive Normal Nonreactive [facility] Comment on above: Performed By: #### C BCDIF, PT, UA, GBCHEM, GBTSH, MG, RPR #### [facility] [address] [place] [address] CBCDIFon 08-22-2019 Abs Baso 0.01 k/uL Normal 0-0.2 [facility] Comment on above: Performed By: #### C BCDIF, PT, UA, GBCHEM, GBTSH, MG, RPR #### [facility] [address] [place] [address] Abs Jenkins 0.41 k/uL Normal 0-0.8 [facility] Comment on above: Performed By: #### C BCDIF, PT, UA, GBCHEM, GBTSH, MG, RPR #### [facility] [address] [place] [address] Abs Neut 2.13 k/uL Normal 1.8-7.7 [facility] Comment on above: Performed By: #### C BCDIF, PT, UA, GBCHEM, GBTSH, MG, RPR #### [facility] [address] [place] [address] Basophils/100 WBC (Bld) 0.3 % Normal 0-1 [facility] Comment on above: Performed By: #### C BCDIF, PT, UA, GBCHEM, GBTSH, MG, RPR #### [facility] [address] [place] [address] Eosinophils (Bld) [#/Vol] 0.05 10*3/uL Normal 0-0.4 [facility] Comment on above: Performed By: #### C BCDIF, PT, UA, GBCHEM, GBTSH, MG, RPR #### [facility] [address] [place] [address] Eosinophils/100 WBC (Bld) 1.3 % Normal 0-4 [facility] Comment on above: Performed By: #### C BCDIF, PT, UA, GBCHEM, GBTSH, MG, RPR #### [facility] [address] [place] [address] Erythrocyte distribution width (RBC) [Ratio] 12.6 % Normal 11.5-14.5 [facility] Comment on above: Performed By: #### C BCDIF, PT, UA, GBCHEM, GBTSH, MG, RPR #### [facility] [address] [place] [address] Hematocrit (Bld) [Volume fraction] 44.9 % Normal 41.0-53.0 [facility] Comment on above: Performed By: #### C BCDIF, PT, UA, GBCHEM, GBTSH, MG, RPR #### [facility] [address] [place], [place] [id number] Hemoglobin (Bld) [Mass/Vol] 15.1 g/dL Normal 13.5-17.5 [facility] Comment on above: Performed By: #### C BCDIF, PT, UA, GBCHEM, GBTSH, MG, RPR #### [facility] [address] [place] [address] Immature Gran 0.30 % Normal 0-1.9 [facility] Comment on above: Performed By: #### C BCDIF, PT, UA, GBCHEM, GBTSH, MG, RPR #### [facility] [address] [place] [address] Lymphocytes (Bld) [#/Vol] 1.22 10*3/uL Normal 1.0-4.0 [facility] Comment on above: Performed By: #### C BCDIF, PT, UA, GBCHEM, GBTSH, MG, RPR #### [facility] [address] [facility] [place] [address] Lymphocytes/100 WBC (Bld) 31.9 % Normal 22-44 [facility] Comment on above: Performed By: #### C BCDIF, PT, UA, GBCHEM, GBTSH, MG, RPR #### [facility] [address] [facility] [place] [address] MCH (RBC) [Entitic mass] 31.5 pG Normal 26-34 [facility] Comment on above: Performed By: #### C BCDIF, PT, UA, GBCHEM, GBTSH, MG, RPR #### [facility] [address] [facility] [place] [address] MCHC (RBC) [Mass/Vol] 33.6 g/dL Normal 31-37 [facility] Comment on above: Performed By: #### C BCDIF, PT, UA, GBCHEM, GBTSH, MG, RPR #### [facility] [address] [facility] [place] [address] MCV (RBC) [Entitic vol] 93.5 fL Normal 80-100 [facility] Comment on above: Performed By: #### C BCDIF, PT, UA, GBCHEM, GBTSH, MG, RPR #### [facility] [address] [facility] [place] [address] Monocytes/100 WBC (Bld) 10.7 % Normal 4-12 [facility] Comment on above: Performed By: #### C BCDIF, PT, UA, GBCHEM, GBTSH, MG, RPR #### [facility] [address] [place] [address] Neutrophils/100 WBC (Bld) 55.5 % Normal 40-70 [facility] Comment on above: Performed By: #### C BCDIF, PT, UA, GBCHEM, GBTSH, MG, RPR #### [facility] [address] [place] [address] NRBCs 0 /100 WBC Normal 0-0.9 [facility] Comment on above: Performed By: #### C BCDIF, PT, UA, GBCHEM, GBTSH, MG, RPR #### [facility] [address] [place] [address] Platelets (Bld) [#/Vol] 171 10*3/uL Normal 150-450 [facility] Comment on above: Performed By: #### C BCDIF, PT, UA, GBCHEM, GBTSH, MG, RPR #### [facility] [address] [place] [address] RBC (Bld) [#/Vol] 4.80 10*6/uL Normal 4.50-5.90 [facility] Comment on above: Performed By: #### C BCDIF, PT, UA, GBCHEM, GBTSH, MG, RPR #### [facility] [address] [place] [address] WBC (Bld) [#/Vol] 3.83 10*3/uL Low 4.5-11.0 [facility] Comment on above: Performed By: #### C BCDIF, PT, UA, GBCHEM, GBTSH, MG, RPR #### [facility] [address] [place] [address] [facility] Alondra Fitzgerald 2019 Albumin [Mass/Vol] 4.6 g/dL Normal 3.5-5.0 [facility] Comment on above: Performed By: #### C BCDIF, PT, UA, GBCHEM, GBTSH, MG, RPR #### [facility] [address] [place] [address] Alkaline Phos 71 U/L Normal 38-125 [facility] Comment on above: Performed By: #### C BCDIF, PT, UA, GBCHEM, GBTSH, MG, RPR #### [facility] [address] [place] [address] ALT [Catalytic activity/Vol] 32 U/L Normal 0-49 [facility] Comment on above: Performed By: #### C BCDIF, PT, UA, GBCHEM, GBTSH, MG, RPR #### [facility] [address] [place] [address] Amylase [Catalytic activity/Vol] 62 U/L Normal 30-110 [facility] Comment on above: Performed By: #### C BCDIF, PT, UA, GBCHEM, GBTSH, MG, RPR #### [facility] [address] [place] [address] Anion gap [Moles/Vol] 18 mmol/L High 0-15 [facility] Comment on above: Performed By: #### C BCDIF, PT, UA, GBCHEM, GBTSH, MG, RPR #### [facility] [address] [facility] [place] [address] AST [Catalytic activity/Vol] 37 U/L Normal 17-59 [facility] Comment on above: Performed By: #### C BCDIF, PT, UA, GBCHEM, GBTSH, MG, RPR #### [facility] [address] [facility] [place] [address] Bilirubin Ql (U) 0.8 mg/dL Normal 0.2-1.3 [facility] Comment on above: Performed By: #### C BCDIF, PT, UA, GBCHEM, GBTSH, MG, RPR #### [facility] [address] [place] [address] Calcium [Mass/Vol] 9.5 mg/dL Normal 8.4-10.2 [facility] Comment on above: Performed By: #### C BCDIF, PT, UA, GBCHEM, GBTSH, MG, RPR #### [facility] [address] [facility] [place] [address] Chloride [Moles/Vol] 104 mmol/L Normal 98-107 [facility] Comment on above: Performed By: #### C BCDIF, PT, UA, GBCHEM, GBTSH, MG, RPR #### [facility] [address] [facility] [place] [address] Cholesterol [Mass/Vol] 212 mg/dL High 100-199 [facility] Comment on above: Performed By: #### C BCDIF, PT, UA, GBCHEM, GBTSH, MG, RPR #### [facility] [address] [place] [address] CO2 [Moles/Vol] 24 mmol/L Normal 22-30 [facility] Comment on above: Performed By: #### C BCDIF, PT, UA, GBCHEM, GBTSH, MG, RPR #### [facility] [address] [place] [address] Creatinine [Mass/Vol] 0.76 mg/dL Normal 0.66-1.25 [facility] Comment on above: Performed By: #### C BCDIF, PT, UA, GBCHEM, GBTSH, MG, RPR #### [facility] [address] [place] [address] eGFR Amer >60 Normal >60 [facility] Comment on above: Result Comment: MDRD calculation used for eGFR results. Performed By: #### C BCDIF, PT, UA, GBCHEM, GBTSH, MG, RPR #### [facility] [address] [facility] [place] [address] eGFR non Am >60 Normal >60 [facility] Comment on above: Performed By: #### C BCDIF, PT, UA, GBCHEM, GBTSH, MG, RPR #### [facility] [address] [place] [address] Gamma glutamyl transferase [Catalytic activity/Vol] 31 U/L Normal 15-73 [facility] Comment on above: Performed By: #### C BCDIF, PT, UA, GBCHEM, GBTSH, MG, RPR #### [facility] [address] [place] [address] Glucose [Mass/Vol] 111 mg/dL High 74-106 [facility] Comment on above: Performed By: #### C BCDIF, PT, UA, GBCHEM, GBTSH, MG, RPR #### [facility] [address] [facility] [place] [address] LDH 424 U/L Normal 318-618 [facility] Comment on above: Performed By: #### C BCDIF, PT, UA, GBCHEM, GBTSH, MG, RPR #### [facility] [address] [place] [address] Phosphate [Mass/Vol] 3.8 mg/dL Normal 2.5-4.5 [facility] Comment on above: Performed By: #### C BCDIF, PT, UA, GBCHEM, GBTSH, MG, RPR #### [facility] [address] [facility] [address] Potassium [Moles/Vol] 4.1 mmol/L Normal 3.5-5.1 [facility] Comment on above: Performed By: #### C BCDIF, PT, UA, GBCHEM, GBTSH, MG, RPR #### [facility] [address] [place] [address] Protein [Mass/Vol] 7.2 g/dL Normal 6.2-8.2 [facility] Comment on above: Performed By: #### C BCDIF, PT, UA, GBCHEM, GBTSH, MG, RPR #### [facility] [address] [place] [address] Sodium [Moles/Vol] 142 mmol/L Normal 137-145 [facility] Comment on above: Performed By: #### C BCDIF, PT, UA, GBCHEM, GBTSH, MG, RPR #### [facility] [address] [place] [address] Triglyceride [Mass/Vol] 92 mg/dL Normal 35-150 [facility] Comment on above: Performed By: #### C BCDIF, PT, UA, GBCHEM, GBTSH, MG, RPR #### [facility] [address] [place] [address] Urate [Mass/Vol] 5.2 mg/dL Normal 3.5-8.5 [facility] Comment on above: Performed By: #### C BCDIF, PT, UA, GBCHEM, GBTSH, MG, RPR #### [facility] [address] [place] [address] Urea nitrogen [Mass/Vol] 15 mg/dL Normal 9-20 [facility] Comment on above: Performed By: #### C BCDIF, PT, UA, GBCHEM, GBTSH, MG, RPR #### [facility] [address] [place] [address] [facility] TSHon 08-22-2019 TSH Qn 1.390 uU/mL Normal 0.465-4.680 [facility] Comment on above: Result Comment: Biot in (Vitamin B7) is known to potentially cause an interfering NEGATIVE bias with this assay. If this result does not correlate clinically with your patient's presentation, it is suggested that Biotin use be discontinued for 2 days prior to re-testing. Performed By: #### C BCDIF, PT, UA, GBCHEM, GBTSH, MG, RPR #### [facility] [address] [place] [address] Magnesiumon 08-22-2019 Magnesium [Mass/Vol] 2.2 mg/dL Normal 1.3-2.3 [facility] Comment on above: Performed By: #### C BCDIF, PT, UA, GBCHEM, GBTSH, MG, RPR #### [facility] [address] [place], [place] [id number] Protimeon 08-22-2019 PT Coag (PPP) [Time] 13.1 s Normal 11.8-14.1 [facility] Comment on above: Performed By: #### C BCDIF, PT, UA, GBCHEM, GBTSH, MG, RPR #### [facility] [address] [place] [address] PT Coag (PPP) [Time] 1.0 s Normal 0.6-1.1 [facility] Comment on above: Result Comment: The PT/INR can be used to monitor the therapeutic effect of oral anticoagulants, such as warfarin. The recommended therapeutic range is an INR of 2.0 to 3.0 for most applications, including treatment and prevention of venous thrombosis, treatment of pulmonary embolism, prevention of strokes/TIA in patients with atrial fibrillation, prevention and treatment of thrombosis in patients with a lupus anticoagulant and prevention of systemic embolization in patients with heart valve disorders. There are certain conditions where clinicians may decide to use a lower or higher therapeutic range eg. 1.5 to 1.9 for secondary prevention of idiopathic venous thromboembolism and an INR 2.5 to 3.5 for older generation mechanical heart valves. Amparoell, et al. Chest 2004: 126:204S to 233S. Performed By: #### C BCDIF, PT, UA, GBCHEM, GBTSH, MG, RPR #### [facility] [address] [place] [address] Urinalysison 08-22-2019 Bilirubin [Mass/Vol] Negative Normal Negative [facility] Comment on above: Performed By: #### C BCDIF, PT, UA, GBCHEM, GBTSH, MG, RPR #### [facility] [address] [place] [address] Clarity (U) Hazy Critically abnormal Clear [facility] Comment on above: Performed By: #### C BCDIF, PT, UA, GBCHEM, GBTSH, MG, RPR #### [facility] [address] [facility] [place] [address] Color (U) Yellow Normal Yellow [facility] Comment on above: Performed By: #### C BCDIF, PT, UA, GBCHEM, GBTSH, MG, RPR #### [facility] [address] [place] [address] Glucose [Mass/Vol] Negative Normal Negative [facility] Comment on above: Performed By: #### C BCDIF, PT, UA, GBCHEM, GBTSH, MG, RPR #### [facility] [address] [place] [address] Hemoglobin/Blood Negative Normal Negative [facility] Comment on above: Performed By: #### C BCDIF, PT, UA, GBCHEM, GBTSH, MG, RPR #### [facility] [address] [place] [address] Ketone Negative Normal Negative [facility] Comment on above: Performed By: #### C BCDIF, PT, UA, GBCHEM, GBTSH, MG, RPR #### [facility] [address] [place] [address] Leukest Negative Normal Negative [facility] Comment on above: Performed By: #### C BCDIF, PT, UA, GBCHEM, GBTSH, MG, RPR #### [facility] [address] [facility] [place] [address] Nitrite Ql (U) Negative Normal Negative [facility] Comment on above: Performed By: #### C BCDIF, PT, UA, GBCHEM, GBTSH, MG, RPR #### [facility] [address] [place] [address] pH (U) 6.0 [pH] Normal 5-7 [facility] Comment on above: Performed By: #### C BCDIF, PT, UA, GBCHEM, GBTSH, MG, RPR #### [facility] [address] [place] [address] Protein (U) [Mass/Vol] 30 mg/dL Criticall y abnormal Negative [facility] Comment on above: Performed By: #### C BCDIF, PT, UA, GBCHEM, GBTSH, MG, RPR #### [facility] [address] [place] [address] RBC (U) [#/Vol] 0-3 Normal 0-3 [facility] Comment on above: Performed By: #### C BCDIF, PT, UA, GBCHEM, GBTSH, MG, RPR #### [facility] [address] [place] [address] Urine Laomnt Comment Many Normal [facility] Comment on above: Result Comment: MUCO US Performed By: #### C BCDIF, PT, UA, GBCHEM, GBTSH, MG, RPR #### [facility] [address] [place], [place] [id number] Urine Spec [place] 1.028 Normal 1.005-1.030 [facility] Comment on above: Performed By: #### C BCDIF, PT, UA, GBCHEM, GBTSH, MG, RPR #### [facility] [address] [place] [address] Urobilinogen Qn (U) 4.0 mg/dl High 0.0-1.0 [facility] Comment on above: Performed By: #### C BCDIF, PT, UA, GBCHEM, GBTSH, MG, RPR #### [facility] [address] [place] [address] WBC (Bld) [#/Vol] 0-5 Normal 0-5 [facility] Comment on above: Performed By: #### C BCDIF, PT, UA, GBCHEM, GBTSH, MG, RPR #### [facility] [address] [place] [address] Vital Signs Date Time Vital Sign Value Performing Clinician Facility 01-18-2025 11:01-0400 Body height 190.[address] Hank Gill MD Work Phone: [facility] 01-18-2025 11:01-0400 Body mass index (BMI) [Ratio] 24.8 kg/m2 Dr. Hank Gill MD Work Phone: [facility] 01-18-2025 11:01-0400 Body temperature 98.5 [degF] Dr. Hank Gill MD Work Phone: [facility] 01-18-2025 11:01-0400 Body weight 90.[address] Hank Gill MD Work Phone: [facility] 01-18-2025 11:01-0400 Diastolic blood pressure 84 mm[Hg] Dr. Hank Gill MD Work Phone: [facility] 01-18-2025 11:01-0400 Heart rate 85 /min Dr. Hank Gill MD Work Phone: [facility] 01-18-2025 11:01-0400 Respiratory rate 16 /min Dr. Hank Gill MD Work Phone: [facility] 01-18-2025 11:01-0400 SaO2% (BldA) [Mass fraction] 96 % Dr. Hank Gill MD Work Phone: [facility] 01-18-2025 11:01-0400 Systolic blood pressure 124 mm[Hg] Dr. Hank Gill MD Work Phone: [facility] 09-08-2023 14:15-0500 Body temperature 98.71 [degF] Maricel Flower PA-C Work Phone: [facility] 09-08-2023 14:15-0500 Body weight 97.52 kg Maricel Athy PA-C Work Phone: [facility] 09-08-2023 14:15-0500 Diastolic blood pressure 75 mm[Hg] Maricel Athy PA-C Work Phone: [facility] 09-08-2023 14:15-0500 Heart rate 79 /min Maricel Athy PA-C Work Phone: [facility] 09-08-2023 14:15-0500 Respiratory rate 20 /min Maricel Athy PA-C Work Phone: [facility] 09-08-2023 14:15-0500 SaO2% (BldA) [Mass fraction] 96 % Maricel Athy PA-C Work Phone: [facility] 09-08-2023 14:15-0500 Systolic blood pressure 137 mm[Hg] Maricel Athy PA-C Work Phone: [facility] 12-05-2022 09:02-0400 Body height 190.[address] Hank Gill Work Phone: [facility] 12-05-2022 09:02-0400 Body mass index (BMI) [Ratio] 27.3 kg/m2 Dr. Hank Gill Work Phone: [facility] 12-05-2022 09:02-0400 Body temperature 97.7 [degF] Dr. Hank Gill Work Phone: [facility] 12-05-2022 09:02-0400 Body weight 99.[address] Hank Gill Work Phone: [facility] 12-05-2022 09:02-0400 Diastolic blood pressure 84 mm[Hg] Dr. Hank Gill Work Phone: [facility] 12-05-2022 09:02-0400 Heart rate 88 /min Dr. Hank Gill Work Phone: [facility] 12-05-2022 09:02-0400 Respiratory rate 18 /min Dr. Hank Gill Work Phone: [facility] 12-05-2022 09:02-0400 SaO2% (BldA) [Mass fraction] 97 % Dr. Hank Gill Work Phone: [facility] 12-05-2022 09:02-0400 Systolic blood pressure 116 mm[Hg] Dr. Hank Gill Work Phone: [facility] 12-21-2021 08:28-0400 Body temperature 97.9 [degF] Dr. Hank Gill Work Phone: [facility] Work Phone: 12-21-2021 08:28-0400 Diastolic blood pressure 80 mm[Hg] Dr. Hank Gill Work Phone: [facility] Work Phone: 12-21-2021 08:28-0400 Heart rate 67 /min Dr. Hank Gill Work Phone: [facility] Work Phone: 12-21-2021 08:28-0400 Respiratory rate 16 /min Dr. Hank Gill Work Phone: [facility] Work Phone: 12-21-2021 08:28-0400 SaO2% (BldA) [Mass fraction] 97 % Dr. Hank Gill Work Phone: [facility] Work Phone: 12-21-2021 08:28-0400 Systolic blood pressure 123 mm[Hg] Dr. Hank Gill Work Phone: [facility] Work Phone: 12-21-2021 06:59-0400 Body height 190.[address] Hank Gill Work Phone: [facility] Work Phone: 12-21-2021 06:59-0400 Body mass index (BMI) [Ratio] 24.5 kg/m2 Dr. Hank Gill Work Phone: [facility] Work Phone: 12-21-2021 06:59-0400 Body weight [address] Hank Gill Work Phone: [facility] Work Phone: 12-05-2021 14:30-0400 Body height 190.[address] Hank Gill Work Phone: [facility] Work Phone: 12-05-2021 14:30-0400 Body mass index (BMI) [Ratio] 25.1 kg/m2 Dr. Hank Gill Work Phone: [facility] Work Phone: 12-05-2021 14:30-0400 Body weight 91.[address] Hank Gill Work Phone: [facility] Work Phone: 12-05-2021 14:30-0400 Diastolic blood pressure 82 mm[Hg] Dr. Hank Gill Work Phone: [facility] Work Phone: 12-05-2021 14:30-0400 Heart rate 78 /min Dr. Hank Gill Work Phone: [facility] Work Phone: 12-05-2021 14:30-0400 Respiratory rate 18 /min Dr. Hank Gill Work Phone: [facility] Work Phone: 12-05-2021 14:30-0400 Systolic blood pressure 122 mm[Hg] Dr. Hank Gill Work Phone: [facility] Work Phone: 11-21-2021 13:12-0400 Body mass index (BMI) [Ratio] 24.9 kg/m2 Dr. Hank Gill Work Phone: [facility] Work Phone: 11-21-2021 13:12-0400 Body temperature 98.1 [degF] Dr. Hank Gill Work Phone: [facility] Work Phone: 11-21-2021 13:12-0400 Body weight 90.[address] Hank Gill Work Phone: [facility] Work Phone: 11-21-2021 13:12-0400 Diastolic blood pressure 74 mm[Hg] Dr. Hank Gill Work Phone: [facility] Work Phone: 11-21-2021 13:12-0400 Heart rate 80 /min Dr. Hank Gill Work Phone: [facility] Work Phone: 11-21-2021 13:12-0400 Respiratory rate 18 /min Dr. Hank Gill Work Phone: [facility] Work Phone: 11-21-2021 13:12-0400 SaO2% (BldA) [Mass fraction] 98 % Dr. Hank Gill Work Phone: [facility] Work Phone: 11-21-2021 13:12-0400 Systolic blood pressure 124 mm[Hg] Dr. Hank Gill Work Phone: [facility] Work Phone: Encounters Encounter Date Encounter Type Care Provider Facility Start: 05-16-2025 Encounter for genera l adult medical examination without abnormal findings Hank Gill [facility] Start: 05-16-2025 End: 05-16-[facility] Start: 01-18-2025 End: 01-18-2025 Patient encounter procedure Liana ESCOBARC [facility] Work Phone: Start: 01-18-2025 End: 01-18-[address] Hank Gill MD Work Phone: [facility] Start: 01-18-2025 End: 01-18-2025 [facility] Start: 05-10-[address] Leroy Gill MD Work Phone: [facility] Start: 09-08-2023 End: 09-08-2023 ambulatory [facility] Facility:[facility] Start: 09-08-2023 End: 09-08-2023 Patient encounter procedure Maricel Flower PA-C Work Phone: [facility] Comment on above: Sinobronchitis (Prim lucy Dx) Start: 02-19-2023 End: 02-19-[address] Hank Gill Work Phone: [facility] Work Phone: Start: 02-19-2023 End: 02-19-[address] Hank Gill Work Phone: [facility], [facility] Start: 12-05-2022 End: 12-05-2022 Encounter for general adult medical examination without abnormal findings Dr. Hank Gill Work Phone: [facility] Start: 12-05-2022 End: 12-05-[address] Hank Gill Work Phone: [facility] Work Phone: Start: 12-21-2021 Non-patient / Non-visit Dr. Laury Gill Work Phone: [facility] Start: 12-21-2021 End: 12-21-2021 Admission to same day surgery center Dr. Hank Gill Work Phone: [facility] Start: 12-10-2021 End: 12-10-[address] Hank Gill Work Phone: [facility] Start: 12-05-[address] Leroy Gill Work Phone: [facility] Start: 12-05-2021 End: 12-05-2021 Encounter for general adult medical examination without abnormal findings Dr. Hank Gill Work Phone: [facility] Start: 12-05-2021 End: 12-05-[address] Hank Gill Work Phone: [facility] Start: 11-28-[address] Hank Gill Work Phone: [facility], Specimen Start: 11-28-2021 End: 11-28-[address] Hank Gill Work Phone: [facility] Start: 11-21-2021 End: 11-21-[address] Hank Gill Work Phone: [facility] Start: 08-18-2020 End: 08-18-2020 Patient encounter procedure TEOFILO SUTTON [facility] Start: 05-25-2020 End: 05-25-2020 Emergency department patient visit CIELO SWAIN [facility] Procedures Date Procedure Procedure Detail Performing Clinician Start: 01-18-2025 Gram stain microscopy Opal Gill MD Work Phone: Start: 01-18-2025 Neisseria gonorrhoea e culture Dr. Hank Gill MD Work Phone: Start: 01-18-2025 Serologic test for syphilis Dr. Hank Gill MD Work Phone: Start: 12-21-[address] Nazia Gill Work Phone: Start: 04-04-2018 Lipid 1996 panel - S jessica or Plasma Maricel Flower PA-C Work Phone: Plan of Treatment Date Care Activity Detail Author Start: 05-25-2030 Urine microalbumin profile DTaP,Tdap,Td Vaccine (2 - Td or Tdap) [facility] Start: 01-18-2025 Hepatitis A and B and C virus immunity AndOr previous exposure panel - Serum or Plasma [facility] Start: 04-04-2023 Lipid panel Lipid Screening [facility] Start: 03-21-2023 Influenza vaccination Influenza Vaccine (#1) [facility] Start: 12-05-2021 Patient referral [facility] Work Phone: Start: 11-28-2020 Diabetes Screening Diabetes Screening [facility] Start: 2019 Screening for malignant neoplasm of colon [facility] Start: 1992 Hepatitis C screening Hepatitis C Screening [facility] Start: 1992 HIV screening HIV Screening [facility] Start: 01-12-1975 Covid-19 Vaccine (#1) Covid-19 Vaccine (#1) [facility] Start: 1974 Hepatitis B Vaccine (1 of 3 - 3-dose series) Hepatitis B Vaccine (1 of 3 - 3-dose series) [facility] Hepatitis B surface antigen measurement [facility] Hepatitis B virus colón rface Ab [Units/volume] in Serum by Radioimmunoassay (ARSLAN) [facility] Hepatitis C antibody measurement [facility] Patient referral [facility] Work Phone: Immunizations Immunization Date Immunization Notes Care Provider Fa cility 05-25-2020 tetanus toxoid, redu abe diphtheria toxoid, and acellular pertussis vaccine, adsorbed Dr. Hank Gill MD Work Phone: [facility] 05-11-2019 Flucelvax Quad [id number] (PF) (flu vac qs 2019(4 yr up)CD(PF)) 60 mcg ([address] Hank Gill Work Phone: [facility] Work Phone: 04-03-2018 influenza, injectabl e, quadrivalent, contains preservative Maricel Flower PA-C Work Phone: [facility] 04-03-2018 influenza, injectabl e, quadrivalent, preservative free Dr. Hank Gill MD Work Phone: [facility] 04-03-2018 influenza virus vaccine, unspecified formulation Maricel Flower PA-C Work Phone: [facility] Payers Date Payer Category Payer Self-pay [id number] 2023 Unknown [id number] 2023 Unknown [employer] PPO [id number] 2023-Present [phone] [address] [place] [address] PPO [id number] 1974 Unknown [id number] 1974 Unknown [id number] Unknown [id number] Unknown [id number] Unknown [id number] Social History Date Type Detail Facility Start: 12-05-2021 End: 12-05-2022 Tobacco smoking status NHIS Unknown if ever smoked [facility] Start: 05-31-2019 Non-smoker [facility] Start: 1975 Sex Assigned At Male [facility] Start: 09-08-2023 End: 05-10-2024 Tobacco smoking status NHIS Never smoked tobacco [facility] Start: 09-08-2023 Tobacco use and exposure User of smokeless tobacco 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 Start: 06-26-2020 End: 09-08-2023 History of Social function [facility] Start: 06-26-2020 End: 09-08-2023 Tobacco use panel [facility] Adult Depression Screening Assessment [address] [facility] Start: 09-08-2023 Tobacco Comment goes through a can a week. [facility] Start: 1975 Sex Assigned At Not on file [facility] [place] Medical Equipment Procedure Code Equipment Code Equipment Origin al Text Equipment Identifier Dates MESH,3DMAX LEFT MD [id number] FDA Start: 06-01-2019 MESH,3DMAX LEFT MD [id number] FDA Start: 06-01-2019 MESH,3DMAX LEFT MD [id number] FDA Start: 06-01-2019 MESH,3DMAX LEFT MD [id number] FDA Start: 06-01-2019 MESH,3DMAX LEFT MD [id number] FDA Start: 06-01-2019 Mental Status Date Assessment Result Facility 12-21-2021 Cognitive function Voice/Name [facility] Work Phone: Clinical Notes 05-10-2016 to 01-18-2025 Note Date & Type Note Facility 01-18-2025 Evaluation note Diagnosis Onset Date Resolution Screen for STD (sexually transmitted disease) acute January 18, 2025 10:51am [facility] Work Phone: 1(490) 843-177302-19-2024 NoteHNO ID: [id number] Author: MARICEL FLOWER PA-C Service: ? Author Type: Physician Cable Layer Type: Progress Notes Filed: 09/08/2023 15:17 Note Text: This note was created using NoteWriter. Subjective Lesa Dutton is a 48 year old male. HPI Patient presents with cough and congestion over the past week. He states the past few days it seems to worsen. He thinks he may have had a fever the first 2 days but has not noticed one since then. He states cough is kept him up at night. He has tried some vwxm-aff-cbnbglg cough medicines here and there. Denies history of asthma. No chest pain or shortness of breath. His family all had been sick around the same time as well. He has had worsening sinus pressure the past few days as well. Review of Systems Constitutional: Positive for fatigue and fever. HENT: Positive for congestion, postnasal drip, sinus pressure and sinus pain. Respiratory: Positive for cough. Negative for shortness of breath and wheezing. Cardiovascular: Negative. Gastrointestinal: Negative. Genitourinary: Negative. Musculoskeletal: Negative. All other systems reviewed and are negative. PAST MEDICAL HISTORY Diagnosis Date GERD (gastroesophageal reflux disease) Current Outpatient Medications Medication Sig Dispense Refill rosuvastatin (CRESTOR) 5 mg tablet lansoprazole (PREVACID) 30 mg capsule Take 1 capsule by mouth daily before breakfast. 90 capsule 3 doxycycline (VIBRA-TABS) 100 mg tablet Take 1 tablet by mouth two times a day for 7 days. 14 tablet 0 benzonatate (TESSALON PERLES) 100 mg capsule Take 2 capsules by mouth three times a day as needed. 30 capsule 0 sildenafil (VIAGRA) 100 mg tablet Take 1 tablet by mouth as needed. Take 30 to 60min before sexual activity (Patient not taking: Reported on 09/08/2023) 90 tablet 1 citalopram (CELEXA) 20 mg tablet Take 1 tablet by mouth once daily. Needs appointment for additional refills 30 tablet 0 pravastatin (PRAVACHOL) 10 mg tablet TAKE 1 TABLET BY MOUTH ONCE DAILY (Patient not taking: Reported on 09/08/2023) 30 tablet 2 No current facility-administered medications for this visit. PAST SURGICAL HISTORY Procedure Laterality Date ESOPHAGOGASTRODUODENOSCOPY TRANSORAL DIAGNOSTIC 05/10/16 EGD HERNIA REPAIR HX Right inguinal LASIK FAMILY HISTORY Problem Relation Age of Onset Hypertension Father Cancer Maternal Grandmother Colon Cancer Paternal Grandfather Breast Cancer Paternal Grandmother Social History Tobacco Use Smoking status: Never Smokeless tobacco: Current Types: Chew Tobacco comments: goes through a can a week. Substance Use Topics Alcohol use: No Drug use: No Objective BP 137/75 Pulse 79 Temp 37.1 ?C (98.7 ?F) Resp 20 Wt 97.5 kg (215 lb) SpO2 96% BMI 26.52 kg/m? Physical Exam Vitals reviewed. Constitutional: Appearance: Normal appearance. HENT: Head: Normocephalic and atraumatic. Right Ear: Tympanic membrane, ear canal and external ear normal. Left Ear: Tympanic membrane, ear canal and external ear normal. Nose: Congestion present. Right Sinus: Maxillary sinus tenderness present. Left Sinus: Maxillary sinus tenderness present. Mouth/Throat: Mouth: Mucous membranes are moist. Pharynx: Oropharynx is clear. Cardiovascular: Rate and Rhythm: Normal rate and regular rhythm. Heart sounds: Normal heart sounds. Pulmonary: Effort: Pulmonary effort is normal. Comments: Some crackles in the left lower lung Musculoskeletal: Cervical back: Neck supple. Skin: General: Skin is warm and dry. Neurological: Mental Status: He is alert. Assessment and Plan ASSESSMENT/PLAN: 1. Sinobronchitis - ICD9: 473.9, 490, ICD10: J32.9, J40 - Will begin treatment with Doxycycline and tessalon, flonase recommended otc - Supportive care with plenty of fluids, rest, and analgesia prn. - Follow up in 3-5 days if symptoms persist or worsen. SANJEEV [facility]02-19-2024 History of Present illness Narrative* Maricel Flower PA-C - 09/08/2023 3:14 PM EST This note was created using Hypejarriter. Subjective Lesa Dutton is a 48 year old male. HPI Patient presents with cough and congestion over the past week. He states the past few days it seemsto worsen. He thinks he may have had a fever the first 2 days but has not noticed one since then. He states cough is kept him up at night. He has tried some rxig-cct-jgdfffa cough medicines here and there. Denies history of asthma. No chest pain or shortness of breath. His family all had been sick around the same time as well. He has had worsening sinus pressure the past few days as well. Review of Systems Constitutional: Positive for fatigue and fever. HENT: Positive for congestion, postnasal drip, sinus pressure and sinus pain. Respiratory: Positive for cough. Negative for shortness of breath and wheezing. Cardiovascular: Negative. Gastrointestinal: Negative. Genitourinary: Negative. Musculoskeletal: Negative. All other systems reviewed and are negative. PAST MEDICAL HISTORY Diagnosis Date GERD (gastroesophageal reflux disease) Current Outpatient Medications Medication Sig Dispense Refill rosuvastatin (CRESTOR) 5 mg tablet lansoprazole (PREVACID) 30 mg capsule Take 1 capsule by mouth daily before breakfast. 90 capsule 3 doxycycline (VIBRA-TABS) 100 mg tablet Take 1 tablet by mouth two times a day for 7 days. 14 tablet0 benzonatate (TESSALON PERLES) 100 mg capsule Take 2 capsules by mouth three times a day as needed. 30 capsule 0 sildenafil (VIAGRA) 100 mg tablet Take 1 tablet by mouth as needed. Take 30 to 60min before sexual activity (Patient not taking: Reported on 09/08/2023) 90 tablet 1 citalopram (CELEXA) 20 mg tablet Take 1 tablet by mouth once daily. Needs appointment for additional refills 30 tablet 0 pravastatin (PRAVACHOL) 10 mg tablet TAKE 1 TABLET BY MOUTH ONCE DAILY (Patient not taking: Reported on 09/08/2023) 30 tablet 2 No current facility-administered medications for this visit. PAST SURGICAL HISTORY Procedure Laterality Date ESOPHAGOGASTRODUODENOSCOPY TRANSORAL DIAGNOSTIC 05/10/16 EGD HERNIA REPAIR HX Right inguinal LASIK FAMILY HISTORY Problem Relation Age of Onset Hypertension Father Cancer Maternal Grandmother Colon Cancer Paternal Grandfather Breast Cancer Paternal Grandmother Social History Tobacco Use Smoking status: Never Smokeless tobacco: Current Types: Chew Tobacco comments: goes through a can a week. Substance Use Topics Alcohol use: No Drug use: No Objective BP 137/75 Pulse 79 Temp 37.1 C (98.7 F) Resp 20 Wt 97.5 kg (215 lb) SpO2 96% BMI 26.52 kg/m Physical Exam Vitals reviewed. Constitutional: Appearance: Normal appearance. HENT: Head: Normocephalic and atraumatic. Right Ear: Tympanic membrane, ear canal and external ear normal. Left Ear: Tympanic membrane, ear canal and external ear normal. Nose: Congestion present. Right Sinus: Maxillary sinus tenderness present. Left Sinus: Maxillary sinus tenderness present. Mouth/Throat: Mouth: Mucous membranes are moist. Pharynx: Oropharynx is clear. Cardiovascular: Rate and Rhythm: Normal rate and regular rhythm. Heart sounds: Normal heart sounds. Pulmonary: Effort: Pulmonary effort is normal. Comments: Some crackles in the left lower lung Musculoskeletal: Cervical back: Neck supple. Skin: General: Skin is warm and dry. Neurological: Mental Status: He is alert. Assessment and Plan ASSESSMENT/PLAN: 1. Sinobronchitis - ICD9: 473.9, 490, ICD10: J32.9, J40 - Will begin treatment with Doxycycline and tessalon, flonase recommended otc - Supportive care with plenty of fluids, rest, and analgesia prn. - Follow up in 3-5 days if symptoms persist or worsen. Maricel Flower PA-C [facility] Instructions* Patient Instructions* Maricel Flower PA-C - 09/08/2023 2:34 PM EST Flonase otc as well [facility] History of Past illness Narrative* Problem Noted Date Diagnosed Date Resolved Date GERD without esophagitis 05/10/2016 documented as of this encounter (statuses as of 09/08/2023) [facility] Diagnosis Onset Date Resolution Status Sterilization consult acute Encounter for sterilization acute [facility]ative [facility] acute GERD (gastroesophageal reflux disease) chronic Hyperlipidemia chronic [facility]: [facility] note* Diagnosis Onset Date Resolution Status Sterilization consult acute Encounter for sterilization acute Encounter for preventative a dult health care examination acute GERD (gastroesophageal reflux disease) chronic Hyperlipidemia chronic Screen for colon cancer acut e Screen for colon cancer [facility] Work Phone: Evaluation note* Diagnosis Onset Date Resolution Status Encounter for preventative a dult health care examination acute GERD (gastroesophageal reflux disease) chronic Hyperlipidemia chronic [facility] Work Phone: Evaluation note* Diagnosis Sinobronchitis- Primary Unspecified sinusitis (chronic) [facility] Diagnosis Onset Date Resolution Status Admit Date Screen for STD (sexually transmitted disease) acute January 18 10:51am [facility] Work Phone: Reason for referral (narrative)No reason for referral information availableK[facility] Work Phone: Summary Purpose Family History No Family History Records Found Relationship Condition Age at Onset Recorded Date/T inga grandfather Malignant neoplasm of colon Unknown grandmother Malignant neoplasm of breast Unknown father Hypertension Unknown Advance Directives No Advanced Directives Records Found Advance Directive Response Recorded Date/ Time Living Will Yes November 02, 2020 1:48pm Power of Medical Reimbursement Manager Yes November 02 1:48pm Advance Directive Response Recorded Date/ Time Living Will Yes December 19, 2021 2 :14pm Power of Medical Reimbursement Manager Yes December 19, 2021 2:14pm Chief Complaint and Reason for Visit Chief Complaint Admit Date STD TESTING January 18, 2025 10:51 am EORDERS January 18, 2025 11:32 am Reason for Visit Admit Date Screen for STD (sexually transmitted dis ease) January 18, 2025 10:51am Chief Complaint VASECTOMY VASECTOMY STERILIZATION medication refills. VASECTOMY 11/28/21 Reason for Visit Sterilization consul t Encounter for sterilization Encounter for preventative adult health care examination GERD (gastroesophageal reflux disease) Hyperlipidemia Screen for colon cancer Chief Complaint VASECTOMY VASECTOMY STERILIZATION medication refills. VASECTOMY 11/28/21 Reason for Visit Sterilization consul t Encounter for sterilization Encounter for preventative adult health care examination GERD (gastroesophageal reflux disease) Hyperlipidemia Screen for colon cancer Screen for colon cancer Chief Complaint 1 Y FU Reason for Visit Encounter for preven tative adult health care examination GERD (gastroesophageal reflux disease) Hyperlipidemia Chief Complaint Admit Date STD TESTING January 18, 2025 10:51 am Additional Source Comments (unrecognized sect ion and content) No Status Records FoundNo Status Records FoundNo Status Records FoundNo Status Records FoundNo Status Records Found INFORMATION SOURCE (unrecogn ized section and content) DATE [facility] DATE CREATED AUTHOR AUTHOR'S ORGANIZ ATION 08/20/[address] [facility] DATE CREATED AUTHOR AUTHOR'S ORGANIZ ATION 09/14/2020 [facility] DATE CREATED AUTHOR AUTHOR'S ORGANIZ ATION 09/09/2023 [facility] DATE CREATED AUTHOR AUTHOR'S ORGANIZ ATION 05/17/2025 [facility] Goals (unrecognized section and content) Goals may be documented in a n alternate sectionGoals may be documented in an alternate sectionGoals may be documented in an alternate sectionGoals may be documented in an alternate sectionGoals may be documented in an alternate section Care Teams (unrecognized sec tion and content) Team Status: Active Member Role Status Dates Dr. Hank Gill MD Family Provider Active Dr. Hank Gill MD Primary Care Provider Active Team Status: Inactive Member Role Status Dates Dr. Hank Gill MD Primary Care Provider, Refer ring Provider Active Sherman Zuleta NP, PARIM[employer] TICKET CASHIER-C Attending Provider Active Team Status: Inactive Member Role Status Dates Dr. Hank Gill MD Primary Care Provider Active Sherman Zuleta NP, PARIMUTUEL TICKET CASHIER-C Attending Provider, Referring Prov ider Active Team Status: Inactive Member Role Status Dates Dr. 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 Hank Gill MD Family Provider Active Dr. Hank Gill MD Primary Care Provider Active Team Status: Inactive Member Role/Relationship Status Dates Dr. Hank Gill MD Primary Care Provider Active Start: January 18, 2025 End: January 18, 2025 Dr. Hank Gill MD Referring Provider Active Start: January 18, 2025 End: January 18, 2025 YUNIEL Carrington Attending Provider Active Start: January 18, 2025 End: January 18, 2025 Team Status: Inactive Member Role/Relationship Status Dates Dr. Hank Gill MD Primary Care Provider Active Start: January 18, 2025 End: January 18, 2025 YUNIEL Carrington Attending Provider Active Start: January 18, 2025 End: January 18, 2025 YUNIEL Carrignton Referring Provider Active Start: January 18, 2025 End: January 18, 2025 Source Comments (unrecognize d section and content) In the event this informatio n is protected by the Federal Confidentiality of Alcohol and Drug Abuse Patient Records regulations: The Federal rules restrict any use of the information to criminally investigate or prosecute any alcohol or drug abuse patient.[facility] Reason for Visit (unrecogniz ed section and content) Reason Comments Cough Bodyaches, ROSALES, sinus congestion, ST x1 week FOR RECORDS PERTAINING TO PATIENTS WHO ARE OR HAVE BEEN ENROLLED IN A CHEMICAL DEPENDENCY/SUBSTANCEABUSE PROGRAM, SOME INFORMATION MAY BE OMITTED. This clinical summary was aggregated from multiple sources. Caution should be exercised in using it in the provision of clinical care. This summary normalizes information from multiple sources, and as a consequence, information in this document may materially change the coding, format and clinical context of patient data. In addition, data may be omitted in some cases. CLINICAL DECISIONS SHOULD BE BASED ON THE PRIMARY CLINICAL RECORDS. [employer] [facility]. provides no warranty or guarantee of the accuracy or completeness of information in this document.
[2025-05-17 09:53] LABS: Hematocrit 45.3 % (40-54); Hemoglobin 15.4 g/dL (13.0-16.5); Immature Granulocytes Count 0.010 X10^3/uL (0.0-0.0); Mean Corp Hgb Conc 34.0 g/dL (32-36); Mean Corpuscular Volume 91.5 fL (80-94); Mean Platelet Vol. 9.8 fl (6.2-12.0); NRBC Flagged by Analyzer 0 % (0-5); Platelet Count 183 K/mm3 (150-450); RBC Distribution Width CV 12.3 % (11.6-14.6); RBC Distribution Width SD 41.2 fl (35.1-43.9); Red Blood Count 4.95 M/mm3 (4.6-6.2); White Blood Count 2.8 K/mm3 (4.4-11.0)
[2025-05-17 10:30] LABS: AST(SGOT) 26 U/L (<=37); Alanine Aminotransfer ALT/SGPT 22 U/L (<=46); Albumin, Serum 4.7 g/dL (3.5-5.0); Alkaline Phosphatase 59 U/L (40-129); Anion Gap 11 (5-15); BUN 24 mg/dL (4-19); BUN/Creat Ratio 24.2 RATIO (10-20); Calcium,Total 9.6 mg/dL (7.6-11.0); Carbon Dioxide 25.4 mmol/L (21.0-32.0); Chloride 102 mmol/L (98-108); Cholesterol 206 mg/dL (<=200); Globulin 2.5 g/dL (2.2-4.2); Glucose 100 mg/dL (70-99); Low Density Lipoprotein Calc. 136 mg/dL; PSA,Total - Annual Screen 0.54 ng/mL (0.02-4.00); Potassium 4.4 mmol/L (3.3-5.1); Triglycerides 110 mg/dL; Very Low Density Lipoprotein 22 mg/dL (5-40); cholesterol:hdl ratio screen 4.10
== END | disposition home or self-care (01) ==
LOC: MTLAB 07:09
PROVIDERS: PCP Internal Medicine; Referring Provider Internal Medicine; Visit Provider Internal Medicine
DX: Z00.00 Encounter for general adult medical examination without abnormal findings (principal); Z12.5 Encounter for screening for malignant neoplasm of prostate
CPT/HCPCS: 36415; 80053; 80061; 84153; 85025; G0103

== ENCOUNTER → 2025-06-15 | Outpatient (CLI) | payer OTHER, SELFPAY ==
--- OUTSIDE RECORDS SUMMARY | 2025-06-15 07:22 | XMS RPT_ITS | CCD ---
Author Organization [facility] Care Team Providers Care Deputy Attorney General Name Role Phone CIELO SWAIN Admitting Unavailable CIELO SWAIN Attending Unavailable CIELO SWAIN Primary Care Unavailable TEOFILO SUTTON Attending Unavailable TEOFILO SUTTON Primary Care Unavailable TEOFILO SUTTON Admitting Unavailable Dr. Hank Gill Primary Care Provider [phone] Dr. Hank Gill Referring Provider [phone] Dr. Avinash Zepeda Attending Provider Song CCO & PRESIDENT, CCO & PRESIDENT-C Sherman Attending Provider Dr. Avinash Zepeda Other Provider Dr. Hank Gill Primary Care Provider [phone] Dr. Hank Gill Referring Provider [phone] Song CCO & PRESIDENT, CCO & PRESIDENT-C Sherman Attending Provider [phone] Gela Sr MD Primary Care Provider GELA SR Primary Care Unavailable Dr. Hank Gill MD Primary Care Provider Dr. Hank Gill MD Referring Provider [phone] Grantr CCO & PRESIDENTLiana Dalal Attending Provider [phone] Grantr CCO & PRESIDENT-CLiana Referring Provider [phone] Laury Gillewongras Referring Unavailable Jairo Efewongbe Attending Unavailable Hank iGll Primary Care Unavailable Olezarae Efewongbe Referring Unavailable Oleivan Efewongbe Attending Unavailable OleghHank harper Primary Care Unavailable Hank Gill Primary Care Unavailable GrantrLiana Referring Unavailable Liana Agudelo Attending Unavailable Hank Gill Referring Unavailable CorbinHank harper Primary Care Unavailable Liana Agudelo Attending Unavailable Medications Current [...] Comment on above: Take 2 capsules by m out three times a day as needed. busPIRone [...] above: Take 1 tablet by dylan th once daily. Needs appointment for additional refills [...] release(DR/EC) Discontinued 30 mg PO DAILY 30 0 January 08, 2024 1:34pm May 10, 2024 9:26am Comment on above: Take 1 capsule by mo [facility] daily before breakfast. LORazepam 2 mg oral [...] tablet Discontinued 40 mg PO DAILY 90 May 11, 2019 12:00am November 08, 2020 3:02pm Start: 07-15-2018 take 1 tablet by dylan once daily pravastatin (PRAVACHOL) 10 mg tablet Indications: mixed hyperlipidemia TAKE 1 TABLET BY MOUTH ONCE DAILY 30 tablet 2 07/15/2018 Active Comment on above: TAKE 1 TABLET BY DYLAN ONCE DAILY QUEtiapine 25 mg oral tablet [...] tablet Discontinued 5 mg PO DAILY 30 0 January 08, 2024 1:34pm May 10, 2024 [...] Test Name Value Interpretation Reference Range Facility CBC W/Diff, Automatedon 10- Absolute Lymph 0.86 X10 3/uL Normal 0.83-4.51 [facility] Comment on above: Performed By: #### L 500.4050, L100.0100, L500.4100, L501.9910 #### [facility] [address] [place], [address] Absolute Neut 1.6 X10 3/uL Low 2.0-7.7 [facility] Comment on above: Performed By: #### L 500.4050, L100.0100, L500.4100, L501.9910 #### [facility] [address] [place], [address] Basophils/100 WBC (Bld) 0.4 % Normal 0-1 [facility] Comment on above: Performed By: #### L 500.4050, L100.0100, L500.4100, L501.9910 #### [facility] [address] [place], [address] Eosinophils/100 WBC (Bld) 1.1 % Normal 0-5 [facility] Comment on above: Performed By: #### L 500.4050, L100.0100, L500.4100, L501.9910 #### [facility] [address] [place], [address] Erythrocyte distribution width (RBC) [Ratio] 12.3 % Normal 11.6-14.6 [facility] Comment on above: Performed By: #### L 500.4050, L100.0100, L500.4100, L501.9910 #### [facility] [address] [place], [address] Hematocrit (Bld) [Volume fraction] 45.3 % Normal 40-54 [facility] Comment on above: Performed By: #### L 500.4050, L100.0100, L500.4100, L501.9910 #### [facility] [address] [place], [address] Hemoglobin (Bld) [Mass/Vol] 15.4 g/dL Normal 13.0-16.5 [facility] Comment on above: Performed By: #### L 500.4050, L100.0100, L500.4100, L501.9910 #### [facility] [address] [place], [address] IG% 0.400 Normal 0.0-0.9 [facility] Comment on above: Result Comment: IG% - Immature Granulocytes (promyelocytes, myelocytes and metamyelocytes) > 1% indicates that a LEFT SHIFT is Present. Performed By: #### L 500.4050, L100.0100, L500.4100, L501.9910 #### [facility] [address] [facility] [place], [address] Lymphocytes/100 WBC (Bld) 30.7 % Normal 19-41 [facility] Comment on above: Performed By: #### L 500.4050, L100.0100, L500.4100, L501.9910 #### [facility] [address] [place], [address] MCH (RBC) [Entitic mass] 31.1 pg Normal 27.0-32.0 [facility] Comment on above: Performed By: #### L 500.4050, L100.0100, L500.4100, L501.9910 #### [facility] [address] [place], [address] MCHC (RBC) [Mass/Vol] 34.0 g/dL Normal 32-36 [facility] Comment on above: Performed By: #### L 500.4050, L100.0100, L500.4100, L501.9910 #### [facility] [address] [place], [address] MCV (RBC) [Entitic vol] 91.5 fL Normal 80-94 [facility] Comment on above: Performed By: #### L 500.4050, L100.0100, L500.4100, L501.9910 #### [facility] [address] [place], [address] Monocytes/100 WBC (Bld) 10.7 % High 0-10 [facility] Comment on above: Performed By: #### L 500.4050, L100.0100, L500.4100, L501.9910 #### [facility] [address] [place], [address] Neutrophils/100 WBC (Bld) 56.7 % Normal 47-70 [facility] Comment on above: Performed By: #### L 500.4050, L100.0100, L500.4100, L501.9910 #### [facility] [address] [place], [address] Nucleated RBC (Bld) [#/Vol] 0 10*3/uL Normal 0-5 [facility] Comment on above: Performed By: #### L 500.4050, L100.0100, L500.4100, L501.9910 #### [facility] [address] [place], [address] Platelet mean volume (Bld) [Entitic vol] 9.8 fL Normal 6.2-12.0 [facility] Comment on above: Performed By: #### L 500.4050, L100.0100, L500.4100, L501.9910 #### [facility] [address] [place], [address] Platelets (Bld) [#/Vol] 183 10*3/uL Normal 150-450 [facility] Comment on above: Performed By: #### L 500.4050, L100.0100, L500.4100, L501.9910 #### [facility] [address] [place], [address] RBC (Bld) [#/Vol] 4.95 10*6/uL Normal 4.6-6.2 [facility] Comment on above: Performed By: #### L 500.4050, L100.0100, L500.4100, L501.9910 #### [facility] [address] [place], [address] RDW SD 41.2 fl Normal 35.1-43.9 [facility] Comment on above: Performed By: #### L 500.4050, L100.0100, L500.4100, L501.9910 #### [facility] [address] [place], [address] WBC (Bld) [#/Vol] 2.8 10*3/uL Low 4.4-11.0 [facility] Comment on above: Performed By: #### L 500.4050, L100.0100, L500.4100, L501.9910 #### [facility] [address] [place], [address] Comprehensive Metabolic Prof [facility] 05-17-2025 Albumin [Mass/Vol] 4.7 g/dL Normal 3.5-5.0 [facility] Comment on above: Performed By: #### L 500.4050, L100.0100, L500.4100, L501.9910 #### [facility] [address] [place], [address] Albumin/Globulin [Mass ratio] 1.9 {ratio} Normal 0.9-2.4 [facility] Comment on above: Performed By: #### L 500.4050, L100.0100, L500.4100, L501.9910 #### [facility] [address] [place], [address] ALK PHOS 59 U/L Normal 40-129 [facility] Comment on above: Performed By: #### L 500.4050, L100.0100, L500.4100, L501.9910 #### [facility] [address] [place], [address] ALT [Catalytic activity/Vol] 22 U/L Normal <=46 [facility] Comment on above: Performed By: #### L 500.4050, L100.0100, L500.4100, L501.9910 #### [facility] [address] [place], [address] AST [Catalytic activity/Vol] 26 U/L Normal <=37 [facility] Comment on above: Performed By: #### L 500.4050, L100.0100, L500.4100, L501.9910 #### [facility] [address] [place], [address] Bilirubin [Mass/Vol] 0.91 mg/dL Normal 0.00-1.30 [facility] Comment on above: Performed By: #### L 500.4050, L100.0100, L500.4100, L501.9910 #### [facility] [address] [place], [address] BUN/CRE 24.2 RATIO High 10-20 [facility] Comment on above: Performed By: #### L 500.4050, L100.0100, L500.4100, L501.9910 #### [facility] [address] [place], [address] Calcium [Mass/Vol] 9.6 mg/dL Normal 7.6-11.0 [facility] Comment on above: Performed By: #### L 500.4050, L100.0100, L500.4100, L501.9910 #### [facility] [address] [place], [address] Chloride [Moles/Vol] 102 mmol/L Normal 98-108 [facility] Comment on above: Performed By: #### L 500.4050, L100.0100, L500.4100, L501.9910 #### [facility] [address] [place], [address] CO2 [Moles/Vol] 25.4 mmol/L Normal 21.0-32.0 [facility] Comment on above: Performed By: #### L 500.4050, L100.0100, L500.4100, L501.9910 #### [facility] [address] [place], [address] Creatinine [Mass/Vol] 1.00 mg/dL Normal 0.70-1.20 [facility] Comment on above: Performed By: #### L 500.4050, L100.0100, L500.4100, L501.9910 #### [facility] [address] [place], [address] GAP 11 Normal 5-15 [facility] Comment on above: Performed By: #### L 500.4050, L100.0100, L500.4100, L501.9910 #### [facility] [address] [place], [address] GFR/1.73 sq M.predicted among non-blacks MDRD (S/P/Bld) [Vol rate/Area] 92 mL/min/{1.73_m2} Normal >60 [facility] Comment on above: Result Comment: mL/m in/1.73m2 CKD-EPI Creatinine Equation (2020) Performed By: #### L 500.4050, L100.0100, L500.4100, L501.9910 #### [facility] [address] [place], [address] Globulin (S) [Mass/Vol] 2.5 g/dL Normal 2.2-4.2 [facility] Comment on above: Performed By: #### L 500.4050, L100.0100, L500.4100, L501.9910 #### [facility] [address] [place], [address] Glucose [Mass/Vol] 100 mg/dL High 70-99 [facility] Comment on above: Performed By: #### L 500.4050, L100.0100, L500.4100, L501.9910 #### [facility] [address] [place], [address] Potassium [Moles/Vol] 4.4 mmol/L Normal 3.3-5.1 [facility] Comment on above: Performed By: #### L 500.4050, L100.0100, L500.4100, L501.9910 #### [facility] [address] [place], [address] Sodium [Moles/Vol] 138 mmol/L Normal 133-145 [facility] Comment on above: Performed By: #### L 500.4050, L100.0100, L500.4100, L501.9910 #### [facility] [address] [place], [address] T PROT 7.2 g/dL Normal 5.9-8.4 [facility] Comment on above: Performed By: #### L 500.4050, L100.0100, L500.4100, L501.9910 #### [facility] [address] [place], [address] Urea nitrogen [Mass/Vol] 24 mg/dL High 4-19 [facility] Comment on above: Performed By: #### L 500.4050, L100.0100, L500.4100, L501.9910 #### [facility] [address] [place], [address] Lipid Profileon 05-17-2025 CHOL:HDL 4.10 Normal [facility] Comment on above: Performed By: #### L 500.4050, L100.0100, L500.4100, L501.9910 #### [facility] [address] [place], [address] Cholesterol [Mass/Vol] 206 mg/dL High <=200 [facility] Comment on above: Result Comment: Chol esterol level, Desirable <200 mg/dL Borderline high cholesterol 200-239 mg/dL High cholesterol >=240 mg/dL Recommendations of the NCEP Adult Treatment Panel for the following risk-cutoff thresholds for the [place] population. Performed By: #### L 500.4050, L100.0100, L500.4100, L501.9910 #### [facility] [address] [place], [address] Cholesterol in HDL [Mass/Vol] 50 mg/dL Normal [facility] Comment on above: Result Comment: Kendra onal Cholesterol Education Program (NCEP) guidelines: <40 mg/dL: Low HDL-cholesterol (major risk factor for CHD) >= 60 mg/dL: High HDL-cholesterol (negative risk factor for CHD) HDL-cholesterol is affected by a number of factors, e.g. smoking, exercise, hormones, sex and age. Performed By: #### L 500.4050, L100.0100, L500.4100, L501.9910 #### [facility] [address] [place], [address] Cholesterol in LDL [Mass/Vol] 136 mg/dL Normal [facility] Comment on above: Result Comment: Bord rgskoh=088-611 mg/dL Higher Tuiq=167 mg/dL or greater Louis Equation 2020 for LDL-C Performed By: #### L 500.4050, L100.0100, L500.4100, L501.9910 #### [facility] [address] [place], [address] Cholesterol in VLDL [Mass/Vol] 22 mg/dL Normal 5-40 [facility] Comment on above: Performed By: #### L 500.4050, L100.0100, L500.4100, L501.9910 #### [facility] [address] [place], [address] Triglyceride [Mass/Vol] 110 mg/dL Normal [facility] Comment on above: Result Comment: The drugs N-Acetylcysteine and Metamizole may falsely depress this assay. Normal range: <150 mg/dL Borderline High: 150-199 mg/dL High: 200-499 mg/dL Very High: >500 mg/dL Performed By: #### L 500.4050, L100.0100, L500.4100, L501.9910 #### [facility] [address] [place], [address] PSA,Total - Annual Screenon 05-17-2025 PSA,TOT SCREEN 0.54 ng/mL Normal 0.02-4.00 [facility] Comment on above: Result Comment: This test was performed using the [employer] tPSA method. Measured values of a patient??sample can vary depending on the testing procedure used. PSA values determined on patient samples by different testing procedures cannot be used interchangeably. If there is a change in PSA assays while monitoring therapy, sequential testing should be performed to confirm baseline values. Performed By: #### M 100.3300, L509.8002, L3890.6006, M100.2000, L3000.0400 #### [facility] [address] [place], [address] Internal Medicine Office Vis iton 05-16-2025 Internal Medicine Office Visit [facility] Internal Medicine [address] [place] [address] [place] [address] OFFICE VISIT Date of Service: 05/16/25 MR#: [id number] Acct: [id number] Name: LESA DUTTON TUTU Rep #: [id number] 12 : 1975 Provider: Dr. Hank holden MD Age/Sex: 49/M Location: [facility] Status: Signed Intake Vital Signs 01/18/25 11:01 [...] 5 current occupational status: employed current occupation: [employer] pets and animals: No sexually active: Yes [...] burning urination, (more content not included)... Normal [facility] GC Cultureon 01-19-2025 GCC NEISSERIA GONORRHOEAE is NOT isolated. Normal [facility] Comment on above: Performed By: #### M 100.3300, L509.8002, L3890.6006, M100.2000, L3000.0400 #### [facility] [address] [place], [address] Gram Stainon 01-19-2025 GS Gram Stain No organisms seen No cells seen Normal [facility] Comment on above: Performed By: #### M 100.3300, L509.8002, L3890.6006, M100.2000, L3000.0400 #### [facility] [address] [place], [address] GC cultureOrdered By: Wu Agudelo on 01-18-2025 Neisseria gonorrhoeae culture NEISSERIA GONORRHOEAE is NOT isolated. [facility] Gram stainOrdered By: Wu Agudelo on 01-18-2025 Microscopic observation Gram stain Nom (Unsp spec) [facility] HIVon 01-18-2025 HIV Non-Reactive Normal Nonreactive [facility] Comment on above: Result Comment: Non- Reactive Reactive Repeatedly reactive samples must be confirmed according to CDC recommended confirmatory algorithms. The subresults for either HIVAG or AHIV can be used as an aid in the selection of the confirmation algorithm for reactive samples. Send out specimens with Reactive results to [facility] for confirmation. Order the HIV antibody detection and differentiation: lc#[id number] Performed By: #### M 100.3300, L509.8002, L3890.6006, M100.2000, L3000.0400 #### [facility] [address] [place], [address] Hepatitis Expose Panelon Hep B David AB Normal [facility] Comment on above: Result Comment: UNAB LE TO PERFORM TESTING DUE TO UNAVAILABLE REAGENTS Performed By: #### M 100.3300, L509.8002, L3890.6006, M100.2000, L3000.0400 #### [facility] [address] [place], [address] HEP B SURF AG Normal [facility] Comment on above: Result Comment: UNAB LE TO PERFORM TESTING DUE TO UNAVAILABLE REAGENTS Performed By: #### M 100.3300, L509.8002, L3890.6006, M100.2000, L3000.0400 #### [facility] [address] [place], [address] HEP C VIRUS AB Normal [facility] Comment on above: Result Comment: UNAB LE TO PERFORM TESTING DUE TO UNAVAILABLE REAGENTS Performed By: #### M 100.3300, L509.8002, L3890.6006, M100.2000, L3000.0400 #### [facility] [address] [place], [address] Internal Medicine Office Vis itoxin 01-18-2025 Internal Medicine Office Visit [facility] [address] [place] [address] [place] [address] OFFICE VISIT Date of Service: 01/18/25 MR#: [id number] Acct: [id number] Name: LESA DUTTON Rep #: [id number] 01 : 1975 Provider: YUNIEL galvan Age/Sex: 49/M Location: [facility] Status: Signed Intake Vital Signs 05/10/24 08:17 [...] 5 current occupational status: employed current occupation: [employer] pets and animals: No sexually active: Yes [...] groomed a (more content not included)... Normal [facility] No Panel InformationOrdered By: Liana Agudelo on 01-18-2025 HIV (1&2) Antibody Non-Reactive Nonreactive [facility] Comment on above: Non-ReactiveReactive Repeatedly reactive samples must be confirmed according to CDC recommended confirmatory algorithms. The subresults for either HIVAG or AHIV can be used as an aid in the selection of the confirmation algorithm for reactive samples.Send out specimens with Reactive results to [facility] for confirmation.Order the HIV antibody detection and differentiation: #[id number] Syphilis Antibodieson 2024 Syphilis Abs Non-Reactive Normal Nonreactive [facility] Comment on above: Performed By: #### M 100.3300, L509.8002, L3890.6006, M100.2000, L3000.0400 #### [facility] [address] [place], [address] CNOVon 09-08-2023 CNOV Office Visit ([facility]) LESA DUTTON ([id number]) 1975 M Date Time Provider Department 09/08/23 1:45 PM MARICEL FLOWER WSTR During your visit today, we recorded the following information about you: Temperature Pulse Respiration Blood pressure 98.7 degrees 79/minute 20/minute 137/75 Weight 97.5 kg Maricel Flower PA-C 09/08/2023 2:34 PM Signed Flonase otc as well Maricel Flower PA-C 09/08/2023 3:17 PM Signed This note was created using [employer]. Subjective Lesa Dutton is a 48 year old male. HPI Patient presents with cough and congestion over the past week. He states the past few days it seems to worsen. He thinks he may have had a fever the first 2 days but has not noticed one since then. He states cough is kept him up at night. He has tried some ydnr-tgy-ldsuyfa cough medicines here and there. Denies history [...] for 7 (more content not included)... Normal [facility] Basophil percentageOrdered B y: Hank Gill on 02-19-2023 Bilirubin [Mass/Vol] 1.10 mg/dL 0.20-1.00 [facility] Comment on above: For patients on eltr ombopag therapy, use of Dimension [place] TBIL is not recommended. Chloride [Moles/Vol] 103 mmol/L 98-107 [facility] Glucose [Mass/Vol] 97 mg/dL 74-106 [facility] Potassium [Moles/Vol] 4.1 mmol/L 3.5-5.1 [facility] Protein [Mass/Vol] 7.5 g/dL 6.4-8.2 [facility] Sodium [Moles/Vol] 137 mmol/L 136-145 [facility] - Chemistry and C hemistry - challengeOrdered By: Hank Gill on 02-19-2023 ALP [Catalytic activity/Vol] 65 U/L 45-117 [facility] ALT [Catalytic activity/Vol] 33 U/L 16-61 [facility] CO2 [Moles/Vol] 29.0 mmol/L 21.0-32.0 [facility] Globulin (S) [Mass/Vol] 3.1 g/dL 2.2-4.2 [facility] Urea nitrogen/Creatinine [Mass ratio] 16.3 mg/mg 10-20 [facility] No Panel InformationOrdered By: Hank Gill on 02-19-2023 Estimated GFR (MDRD) Amer 98 mL/min >60 [facility] Comment on above: GFR Calc Estimated GFR (MDRD) Non-Af Amer 81 mL/min >60 [facility] Comment on above: Non- GFR Calc Serum or plasma albumin bandar urement (mass/volume)Ordered By: Hank Gill on 02-19-2023 Albumin [Mass/Vol] 4.4 g/dL 3.2-5.0 [facility] Serum or plasma albumin/glob ulin mass ratioOrdered By: Hank Gill on 02-19-2023 Albumin/Globulin [Mass ratio] 1.4 {ratio} 0.9-2.4 [facility] Serum or plasma calcium bandar urement (mass/volume)Ordered By: Hank Gill on 02-19-2023 Calcium [Mass/Vol] 9.3 mg/dL 8.5-10.1 [facility] Serum or plasma creatinine m easurement (mass/volume)Ordered By: Hank Gill on 02-19-2023 Creatinine [Mass/Vol] 1.04 mg/dL 0.70-1.30 [facility] Comment on above: The validity of the calculated GFR & GFRAA in patients over 70 years has not been determined. Clinical correlation is essential. Serum or plasma urea nitroge n measurement (mass/volume)Ordered By: Hank Gill on 02-19-2023 Urea nitrogen [Mass/Vol] 17 mg/dL 7-18 [facility] Thin prep Papanicolaou smear with manual screeningOrdered By: Hank Gill on 02-19-2023 Thin prep Papanicolaou smear with manual screening 26 U/L 15-37 [facility] Thin prep Papanicolaou smear with manual screening 5 5-15 [facility] Absolute lymphocyte countOrd ered By: Sherman Zuleta on 12-05-2022 Lymphocytes Auto (Unsp spec) [#/Vol] 0.76 10*3/uL 0.83-4.51 [facility] Basophil percentageOrdered B y: Sherman Zuleta on 12-05-2022 Basophils/100 WBC (Bld) 0.2 % 0-1 [facility] Bilirubin [Mass/Vol] 1.00 mg/dL 0.20-1.00 [facility] Comment on above: For patients on eltr ombopag therapy, use of Dimension [place] TBIL is not recommended. Chloride [Moles/Vol] 105 mmol/L 98-107 [facility] Cholesterol [Mass/Vol] 194 mg/dL <200 [facility] Comment on above: <200 mg/dL Desirable 200-240 mg/dL Borderline >240 mg/dL High Risk Eosinophils/100 WBC (Bld) 0.6 % 0-5 [facility] Glucose [Mass/Vol] 80 mg/dL 74-106 [facility] Neutrophils (Bld) [#/Vol] 3.6 10*3/uL 2.0-7.7 [facility] Neutrophils/100 WBC (Bld) 75.8 % 47-70 [facility] Potassium [Moles/Vol] 4.6 mmol/L 3.5-5.1 [facility] Protein [Mass/Vol] 7.8 g/dL 6.4-8.2 [facility] Sodium [Moles/Vol] 137 mmol/L 136-145 [facility] Triglyceride [Mass/Vol] 74 mg/dL <199 [facility] Comment on above: The drugs N-Acetylcy steine and Metamizole may falsely depress this assay.Serum Triglycerides Reference Interval Normal <150 mg/dL Borderline high 150 - 199 mg/dL High 200 - 499 mg/dL Very High > or = 500 mg/dL WBC (Bld) [#/Vol] 4.7 10*3/uL 4.4-11.0 [facility] Blood erythrocytes count (nu mber/volume)Ordered By: Sherman Zuleta on 12-05-2022 RBC (Bld) [#/Vol] 5.18 10*6/uL 4.6-6.2 [facility] Blood hemoglobin measurement (mass/volume)Ordered By: Sherman Zuleta on 12-05-2022 Hemoglobin (Bld) [Mass/Vol] 16.1 g/dL 13.0-16.5 [facility] Blood lymphocytes/100 leukoc ytesOrdered By: Sherman Zuleta on 12-05-2022 Lymphocytes/100 WBC (Bld) 16.0 % 19-41 [facility] Blood monocytes/100 leukocyt esOrdered By: Sherman Zuleta on 12-05-2022 Monocytes/100 WBC (Bld) 7.2 % 0-10 [facility] Blood platelet mean volumeOr dered By: Sherman Zuleta on 12-05-2022 Platelet mean volume (Bld) [Entitic vol] 9.6 fL 6.2-12.0 [facility] Determination of erythrocyte mean corpuscular volume (MCV)Ordered By: Sherman Zuleta on 12-05-2022 MCV (RBC) [Entitic vol] 94.6 fL 80-94 [facility] Hematocrit Auto (Bld) [Volum e fraction]Ordered By: Sherman Zuleta on 12-05-2022 Hematocrit (Bld) [Volume fraction] 49.0 % 40-54 [facility] - Chemistry and C hemistry - challengeOrdered By: Sherman Zuleta on 12-05-2022 ALP [Catalytic activity/Vol] 69 U/L 45-117 [facility] ALT [Catalytic activity/Vol] 45 U/L 16-61 [facility] CO2 [Moles/Vol] 26.0 mmol/L 21.0-32.0 [facility] Globulin (S) [Mass/Vol] 3.5 g/dL 2.2-4.2 [facility] Urea nitrogen/Creatinine [Mass ratio] 25.0 mg/mg 10-20 [facility] - Hematology and Cell countsOrdered By: Sherman Zuleta on 12-05-2022 Erythrocyte distribution width (RBC) [Entitic vol] 42.6 fL 35.1-43.9 [facility] Erythrocyte distribution width (RBC) [Ratio] 12.2 % 11.6-14.6 [facility] Immature granulocytes/100 WBC (Bld) 0.200 % 0.0-0.9 [facility] Comment on above: IG% - Immature Granu locytes (promyelocytes, myelocytes and metamyelocytes) > 1% indicates that a LEFT SHIFT is Present. MCH (RBC) [Entitic mass] 31.1 pg 27.0-32.0 [facility] Nucleated RBC/100 WBC (Bld) [Ratio] 0 % 0-5 [facility] MCHC Auto (RBC) [Mass/Vol]Or dered By: Sherman Zuleta on 12-05-2022 MCHC (RBC) [Mass/Vol] 32.9 g/dL 32-36 [facility] No Panel InformationOrdered By: Sherman Zuleta on 12-05-2022 Estimated GFR (MDRD) Amer 94 mL/min >60 [facility] Comment on above: GFR Calc Estimated GFR (MDRD) Non-Af Amer 77 mL/min >60 [facility] Comment on above: Non- GFR Calc Hepatitis B Surface Antigen Non-Reactive Nonreactive [facility] Hepatitis C Antibody Non-Reactive Nonreactive [facility] Comment on above: Non Reactive: < 0.8 Equivocal: >/= 0.8 to < 1.0 Reactive: >/= 1.0The CDC recommends that a reactive/equivocal HCV antibody result be followed up by the HCV Nucleic Acid Amplificationtest (228607) Thyroid Stimulating Hormone (TSH) 1.87 uIU/mL 0.358-3.74 [facility] Platelets bldOrdered By: Eliza Zuleta on 12-05-2022 Platelets (Bld) [#/Vol] 197 10*3/uL 150-450 [facility] Serum or plasma albumin bandar urement (mass/volume)Ordered By: Sherman Zuleta on 12-05-2022 Albumin [Mass/Vol] 4.3 g/dL 3.2-5.0 [facility] Serum or plasma albumin/glob ulin mass ratioOrdered By: Sherman Zuleta on 12-05-2022 Albumin/Globulin [Mass ratio] 1.2 {ratio} 0.9-2.4 [facility] Serum or plasma calcium bandar urement (mass/volume)Ordered By: Sherman Zuleta on 12-05-2022 Calcium [Mass/Vol] 9.6 mg/dL 8.5-10.1 [facility] Serum or plasma cholesterol in HDL measurement (mass/volume)Ordered By: Sherman Zuleta on 12-05-2022 Cholesterol in HDL [Mass/Vol] 58 mg/dL >40 [facility] Comment on above: The drugs N-Acetylcy steine and Metamizole may falsely depress this assay. Reference Range HDL <40 mg/dL Low HDL Cholesterol HDL >or= 60 mg/dL High HDL Cholesterol Serum or plasma cholesterol in VLDL measurement (mass/volume)Ordered By: Sherman Zuleta on 12-05-2022 Cholesterol in VLDL [Mass/Vol] 15 mg/dL 5-40 [facility] Serum or plasma creatinine m easurement (mass/volume)Ordered By: Sherman Zuleta on 12-05-2022 Creatinine [Mass/Vol] 1.08 mg/dL 0.70-1.30 [facility] Comment on above: The validity of the calculated GFR & GFRAA in patients over 70 years has not been determined. Clinical correlation is essential. Serum or plasma low density lipoprotein (LDL) cholesterol measurement (mass/volume)Ordered By: Sherman Zuleta on 12-05-2022 Cholesterol in LDL [Mass/Vol] 121 mg/dL 0-130 [facility] Serum or plasma urea nitroge n measurement (mass/volume)Ordered By: Sherman Zuleta on 12-05-2022 Urea nitrogen [Mass/Vol] 27 mg/dL 7-18 [facility] Thin prep Papanicolaou smear with manual screeningOrdered By: Sherman Zuleta on 12-05-2022 Thin prep Papanicolaou smear with manual screening 101 U/L 15-37 [facility] Thin prep Papanicolaou smear with manual screening 6 5-15 [facility] Absolute lymphocyte counton 12-05-2021 Lymphocytes Auto (Unsp spec) [#/Vol] 0.91 10*3/uL 0.83-4.51 [facility] Work Phone: Basophil percentageon 2021 Basophils/100 WBC (Bld) 0.3 % 0-1 [facility] Work Phone: Bilirubin [Mass/Vol] 0.80 mg/dL 0.20-1.00 [facility] Work Phone: Comment on above: For patients on eltr ombopag therapy, use of Dimension [place] TBIL is not recommended. Chloride [Moles/Vol] 106 mmol/L 98-107 [facility] Work Phone: Cholesterol [Mass/Vol] 181 mg/dL <200 [facility] Work Phone: [phone] Comment on above: <200 mg/dL Desirable 200-240 mg/dL Borderline >240 mg/dL High Risk Eosinophils/100 WBC (Bld) 2.0 % 0-5 [facility] Work Phone: Glucose [Mass/Vol] 98 mg/dL 74-106 [facility] Work Phone: [phone] Neutrophils (Bld) [#/Vol] 2.2 10*3/uL 2.0-7.7 [facility] Work Phone: Neutrophils/100 WBC (Bld) 60.7 % 47-70 [facility] Work Phone: Potassium [Moles/Vol] 4.3 mmol/L 3.5-5.1 [facility] Work Phone: Protein [Mass/Vol] 7.4 g/dL 6.4-8.2 [facility] Work Phone: Sodium [Moles/Vol] 140 mmol/L 136-145 [facility] Work Phone: Triglyceride [Mass/Vol] 114 mg/dL [facility] Work Phone: Comment on above: The drugs N-Acetylcy steine and Metamizole may falsely depress this assay.Serum Triglycerides Reference Interval Normal <150 mg/dL Borderline high 150 - 199 mg/dL High 200 - 499 mg/dL Very High > or = 500 mg/dL WBC (Bld) [#/Vol] 3.6 10*3/uL 4.4-11.0 [facility] Work Phone: Blood erythrocytes count (nu mber/volume)on 12-05-2021 RBC (Bld) [#/Vol] 5.07 10*6/uL 4.6-6.2 [facility] Work Phone: [phone] Blood hemoglobin measurement (mass/volume)on 12-05-2021 Hemoglobin (Bld) [Mass/Vol] 15.7 g/dL 13.0-16.5 [facility] Work Phone: [phone] Blood lymphocytes/100 leukoc yteson 12-05-2021 Lymphocytes/100 WBC (Bld) 25.5 % 19-41 [facility] Work Phone: [phone] Blood monocytes/100 leukocyt eson 12-05-2021 Monocytes/100 WBC (Bld) 11.2 % 0-10 [facility] Work Phone: [phone] Blood platelet mean volumeon 12-05-2021 Platelet mean volume (Bld) [Entitic vol] 9.9 fL 6.2-12.0 [facility] Work Phone: [phone] Determination of erythrocyte mean corpuscular volume (MCV)on 12-05-2021 MCV (RBC) [Entitic vol] 94.9 fL 80-94 [facility] Work Phone: [phone] Hematocrit Auto (Bld) [Volum e fraction]on 12-05-2021 Hematocrit (Bld) [Volume fraction] 48.1 % 40-54 [facility] Work Phone: [phone] Laboratory - Chemistry and C hemistry - challengeon 12-05-2021 ALP [Catalytic activity/Vol] 59 U/L 45-117 [facility] Work Phone: [phone] ALT [Catalytic activity/Vol] 26 U/L 16-61 [facility] Work Phone: [phone] CO2 [Moles/Vol] 28.0 mmol/L 21.0-32.0 [facility] Work Phone: [phone] Globulin (S) [Mass/Vol] 3.2 g/dL 2.2-4.2 [facility] Work Phone: [phone] Urea nitrogen/Creatinine [Mass ratio] 16.3 mg/mg 10-20 [facility] Work Phone: Laboratory - Hematology and Cell countson 12-05-2021 Erythrocyte distribution width (RBC) [Entitic vol] 43.5 fL 35.1-43.9 [facility] Work Phone: [phone] Erythrocyte distribution width (RBC) [Ratio] 12.5 % 11.6-14.6 [facility] Work Phone: [phone] Immature granulocytes/100 WBC (Bld) 0.300 % 0.0-0.9 [facility] Work Phone: [phone] Comment on above: IG% - Immature Granu locytes (promyelocytes, myelocytes and metamyelocytes) > 1% indicates that a LEFT SHIFT is Present. MCH (RBC) [Entitic mass] 31.0 pg 27.0-32.0 [facility] Work Phone: [phone] Nucleated RBC/100 WBC (Bld) [Ratio] 0 % 0-5 [facility] Work Phone: [phone] MCHC Auto (RBC) [Mass/Vol]on 12-05-2021 MCHC (RBC) [Mass/Vol] 32.6 g/dL 32-36 [facility] Work Phone: No Panel Informationon 12-05 Estimated GFR (MDRD) Amer 105 mL/min >60 [facility] Work Phone: [phone] Comment on above: GFR Calc Estimated GFR (MDRD) Non-Af Amer 87 mL/min >60 [facility] Work Phone: [phone] Comment on above: Non- GFR Calc Thyroid Stimulating Hormone (TSH) 1.78 uIU/mL 0.358-3.74 [facility] Work Phone: [phone] Platelets bldon 12-05-2021 Platelets (Bld) [#/Vol] 180 10*3/uL 150-450 [facility] Work Phone: [phone] Serum or plasma albumin bandar urement (mass/volume)on 12-05-2021 Albumin [Mass/Vol] 4.2 g/dL 3.2-5.0 [facility] Work Phone: [phone] Serum or plasma albumin/glob ulin mass ratioon 12-05-2021 Albumin/Globulin [Mass ratio] 1.3 {ratio} 0.9-2.4 [facility] Work Phone: [phone] Serum or plasma calcium bandar urement (mass/volume)on 12-05-2021 Calcium [Mass/Vol] 8.9 mg/dL 8.5-10.1 [facility] Work Phone: [phone] Serum or plasma cholesterol in HDL measurement (mass/volume)on 12-05-2021 Cholesterol in HDL [Mass/Vol] 58 mg/dL [facility] Work Phone: Comment on above: The drugs N-Acetylcy steine and Metamizole may falsely depress this assay. Reference Range HDL <40 mg/dL Low HDL Cholesterol HDL >or= 60 mg/dL High HDL Cholesterol Serum or plasma cholesterol in VLDL measurement (mass/volume)on 12-05-2021 Cholesterol in VLDL [Mass/Vol] 23 mg/dL 5-40 [facility] Work Phone: [phone] Serum or plasma creatinine m easurement (mass/volume)on 12-05-2021 Creatinine [Mass/Vol] 0.98 mg/dL 0.70-1.30 [facility] Work Phone: Comment on above: The validity of the calculated GFR & GFRAA in patients over 70 years has not been determined. Clinical correlation is essential. Serum or plasma low density lipoprotein (LDL) cholesterol measurement (mass/volume)on 12-05-2021 Cholesterol in LDL [Mass/Vol] 100 mg/dL 0-130 [facility] Work Phone: [phone] Serum or plasma urea nitroge n measurement (mass/volume)on 12-05-2021 Urea nitrogen [Mass/Vol] 16 mg/dL 7-18 [facility] Work Phone: [phone] Thin prep Papanicolaou smear with manual screeningon 12-05-2021 Thin prep Papanicolaou smear with manual screening 21 U/L 15-37 [facility] Work Phone: Thin prep Papanicolaou smear with manual screening 6 12-02 [facility] Work Phone: CORONAVIRUS PCR [CCL]on 07-23 SEND TO ? YES Normal [facility] Comment on above: Performed By: #### 2 [id number] #### [facility],[address] [place] [address] COVID 19 Result [facility] Positive Abnormal [facility] Comment on above: Result Comment: Posi tive for COVID19 (SARS CoV2) by PCR.(*) This test was developed and its performance characteristics determined by [facility] [place]. This test has been authorized by FDA under an Emergency Use Authorization (EUA). This test has been validated in accordance with the FDA's Guidance Document Policy for Diagnostics Testing in Laboratories Certified to Perform High Complexity Testing under CLIA prior to Emergency use Authorization for Coronavirus Disease 2019 during the Public Health Emergency issued on September 18, 2019. [facility] [address] [place] [address] Ludwin Romero III, M.D. [id number] Performed By: #### 2 [id number] #### [address] [address] COVID 19 Source [facility] Nasopharyngeal Swab Normal [facility] Comment on above: Result Comment: Andrew ected on 08/19 AT 0057: Previously reported as U Performed By: #### 2 [id number] #### [facility],[address] [place] [id number] Coronavirus 2019on 1 COVID 19 Result [facility] Abnormal Negative for COVID19 (SARS CoV2) by PCR. [facility] Comment on above: Result Comment: Posi tive for This test was developed and its performance characteristics determined by [facility] [place]. This test has been authorized by FDA [...] developed and its performance characteristics determined by [facility] [place]. This test has been authorized by FDA [...] developed and its performance characteristics determined by [facility] [place]. This test has been authorized by FDA [...] developed and its performance characteristics determined by [facility] [place]. This test has been authorized by FDA [...] 2019. Coronavirus 2019on 1 COVID 19 Source [facility] Normal [facility] Comment on above: Result Comment: Naso pharyngeal Corrected on 08/19 AT 0057: Previously reported as U Swab Corrected on 08/19 AT 0057: Previously reported as U EMERGENCY REPORTon 0 EMERGENCY REPORT [facility] EMERGENCY ROOM REPORT NAME ACCOUNT SEX AGE ADMIT DISCHARGE PT MED. RECORD# NUMBER DATE DATE TYPE LESA DUTTON [id number] Donnie 44 05/25/20 05/25/20 3 C [id number] ROOM: ER DATE OF : 1975 DICTATING [...] thigh laceration, repair. Page 1 of 2 [facility] Emergency Room Report LESA DUTTON : [...] Cielo Talley DO 05/26/20 10:32 JOB #: [id number] Transcribed By: sari 05/27/20 07:38 Electronically signed by: E-Sign: CIELO TALLEY MD 05/29/20 11:04 Page 2 of 2 [facility]UT[facility] Emergency Room Report Normal [facility] RPRon 08-25-2019 Reagin Ab RPR Ql (S) Nonreactive Normal Nonreactive [facility] Comment on above: Performed By: #### C BCDIF, PT, UA, GBCHEM, GBTSH, MG, RPR #### [facility] [address] [place] [address] CBCDIFon 08-22-2019 Abs Baso 0.01 k/uL Normal 0-0.2 [facility] Comment on above: Performed By: #### C BCDIF, PT, UA, GBCHEM, GBTSH, MG, RPR #### [facility] [address] [place] [address] Abs [place] 0.41 k/uL Normal 0-0.8 [facility] Comment on above: Performed By: #### C BCDIF, PT, UA, GBCHEM, GBTSH, MG, RPR #### [facility] [address] [place] [address] Abs Neut 2.13 k/uL Normal 1.8-7.7 [facility] Comment on above: Performed By: #### C BCDIF, PT, UA, GBCHEM, GBTSH, MG, RPR #### [facility] [address] [place] [address] Basophils/100 WBC (Bld) 0.3 % Normal 0-1 [facility] Comment on above: Performed By: #### C BCDIF, PT, UA, GBCHEM, GBTSH, MG, RPR #### [facility] [address] [place] [address] Eosinophils (Bld) [#/Vol] 0.05 10*3/uL Normal 0-0.4 [facility] Comment on above: Performed By: #### C BCDIF, PT, UA, GBCHEM, GBTSH, MG, RPR #### [facility] [address] [place] [address] Eosinophils/100 WBC (Bld) 1.3 % Normal 0-4 [facility] Comment on above: Performed By: #### C BCDIF, PT, UA, GBCHEM, GBTSH, MG, RPR #### [facility] [address] [place] [address] Erythrocyte distribution width (RBC) [Ratio] 12.6 % Normal 11.5-14.5 [facility] Comment on above: Performed By: #### C BCDIF, PT, UA, GBCHEM, GBTSH, MG, RPR #### [facility] [address] [place] [address] Hematocrit (Bld) [Volume fraction] 44.9 % Normal 41.0-53.0 [facility] Comment on above: Performed By: #### C BCDIF, PT, UA, GBCHEM, GBTSH, MG, RPR #### [facility] [address] [place] [address] Hemoglobin (Bld) [Mass/Vol] 15.1 g/dL Normal 13.5-17.5 [facility] Comment on above: Performed By: #### C BCDIF, PT, UA, GBCHEM, GBTSH, MG, RPR #### [facility] [address] [place] [address] Immature Gran 0.30 % Normal 0-1.9 [facility] Comment on above: Performed By: #### C BCDIF, PT, UA, GBCHEM, GBTSH, MG, RPR #### [facility] [address] [place] [address] Lymphocytes (Bld) [#/Vol] 1.22 10*3/uL Normal 1.0-4.0 [facility] Comment on above: Performed By: #### C BCDIF, PT, UA, GBCHEM, GBTSH, MG, RPR #### [facility] [address] [place] [address] Lymphocytes/100 WBC (Bld) 31.9 % Normal 22-44 [facility] Comment on above: Performed By: #### C BCDIF, PT, UA, GBCHEM, GBTSH, MG, RPR #### [facility] [address] [facility] [place] [address] MCH (RBC) [Entitic mass] 31.5 pG Normal 26-34 [facility] Comment on above: Performed By: #### C BCDIF, PT, UA, GBCHEM, GBTSH, MG, RPR #### [facility] [address] [place] [address] MCHC (RBC) [Mass/Vol] 33.6 g/dL Normal 31-37 [facility] Comment on above: Performed By: #### C BCDIF, PT, UA, GBCHEM, GBTSH, MG, RPR #### [facility] [address] [facility] [place] [address] MCV (RBC) [Entitic vol] 93.5 fL Normal 80-100 [facility] Comment on above: Performed By: #### C BCDIF, PT, UA, GBCHEM, GBTSH, MG, RPR #### [facility] [address] [place] [address] Monocytes/100 WBC (Bld) 10.7 % Normal 4-12 [facility] Comment on above: Performed By: #### C BCDIF, PT, UA, GBCHEM, GBTSH, MG, RPR #### [facility] [address] [place] [address] Neutrophils/100 WBC (Bld) 55.5 % Normal 40-70 [facility] Comment on above: Performed By: #### C BCDIF, PT, UA, GBCHEM, GBTSH, MG, RPR #### [facility] [address] [place] [address] NRBCs 0 /100 WBC Normal 0-0.9 [facility] Comment on above: Performed By: #### C BCDIF, PT, UA, GBCHEM, GBTSH, MG, RPR #### [facility] [address] [place] [address] Platelets (Bld) [#/Vol] 171 10*3/uL Normal 150-450 [facility] Comment on above: Performed By: #### C BCDIF, PT, UA, GBCHEM, GBTSH, MG, RPR #### [facility] [address] [place] [address] RBC (Bld) [#/Vol] 4.80 10*6/uL Normal 4.50-5.90 [facility] Comment on above: Performed By: #### C BCDIF, PT, UA, GBCHEM, GBTSH, MG, RPR #### [facility] [address] [place] [address] WBC (Bld) [#/Vol] 3.83 10*3/uL Low 4.5-11.0 [facility] Comment on above: Performed By: #### C BCDIF, PT, UA, GBCHEM, GBTSH, MG, RPR #### [facility] [address] [place] [address] [facility] 2019 Albumin [Mass/Vol] 4.6 g/dL Normal 3.5-5.0 [facility] Comment on above: Performed By: #### C BCDIF, PT, UA, GBCHEM, GBTSH, MG, RPR #### [facility] [address] [place] [address] Alkaline Phos 71 U/L Normal 38-125 [facility] Comment on above: Performed By: #### C BCDIF, PT, UA, GBCHEM, GBTSH, MG, RPR #### [facility] [address] [place] [address] ALT [Catalytic activity/Vol] 32 U/L Normal 0-49 [facility] Comment on above: Performed By: #### C BCDIF, PT, UA, GBCHEM, GBTSH, MG, RPR #### [facility] [address] [place] [address] Amylase [Catalytic activity/Vol] 62 U/L Normal 30-110 [facility] Comment on above: Performed By: #### C BCDIF, PT, UA, GBCHEM, GBTSH, MG, RPR #### [facility] [address] [place] [address] Anion gap [Moles/Vol] 18 mmol/L High 0-15 [facility] Comment on above: Performed By: #### C BCDIF, PT, UA, GBCHEM, GBTSH, MG, RPR #### [facility] [address] [place] [address] AST [Catalytic activity/Vol] 37 U/L Normal 17-59 [facility] Comment on above: Performed By: #### C BCDIF, PT, UA, GBCHEM, GBTSH, MG, RPR #### [facility] [address] [place] [address] Bilirubin Ql (U) 0.8 mg/dL Normal 0.2-1.3 [facility] Comment on above: Performed By: #### C BCDIF, PT, UA, GBCHEM, GBTSH, MG, RPR #### [facility] [address] [place] [address] Calcium [Mass/Vol] 9.5 mg/dL Normal 8.4-10.2 [facility] Comment on above: Performed By: #### C BCDIF, PT, UA, GBCHEM, GBTSH, MG, RPR #### [facility] [address] [place] [address] Chloride [Moles/Vol] 104 mmol/L Normal 98-107 [facility] Comment on above: Performed By: #### C BCDIF, PT, UA, GBCHEM, GBTSH, MG, RPR #### [facility] [address] [place] [address] Cholesterol [Mass/Vol] 212 mg/dL High 100-199 [facility] Comment on above: Performed By: #### C BCDIF, PT, UA, GBCHEM, GBTSH, MG, RPR #### [facility] [address] [place] [address] CO2 [Moles/Vol] 24 mmol/L Normal 22-30 [facility] Comment on above: Performed By: #### C BCDIF, PT, UA, GBCHEM, GBTSH, MG, RPR #### [facility] [address] [place] [address] Creatinine [Mass/Vol] 0.76 mg/dL Normal 0.66-1.25 [facility] Comment on above: Performed By: #### C BCDIF, PT, UA, GBCHEM, GBTSH, MG, RPR #### [facility] [address] [place] [address] eGFR Amer >60 Normal >60 [facility] Comment on above: Result Comment: MDRD calculation used for eGFR results. Performed By: #### C BCDIF, PT, UA, GBCHEM, GBTSH, MG, RPR #### [facility] [address] [place] [address] eGFR non Am >60 Normal >60 [facility] Comment on above: Performed By: #### C BCDIF, PT, UA, GBCHEM, GBTSH, MG, RPR #### [facility] [address] [place] [address] Gamma glutamyl transferase [Catalytic activity/Vol] 31 U/L Normal 15-73 [facility] Comment on above: Performed By: #### C BCDIF, PT, UA, GBCHEM, GBTSH, MG, RPR #### [facility] [address] [place] [address] Glucose [Mass/Vol] 111 mg/dL High 74-106 [facility] Comment on above: Performed By: #### C BCDIF, PT, UA, GBCHEM, GBTSH, MG, RPR #### [facility] [address] [place] [address] LDH 424 U/L Normal 318-618 [facility] Comment on above: Performed By: #### C BCDIF, PT, UA, GBCHEM, GBTSH, MG, RPR #### [facility] [address] [place] [address] Phosphate [Mass/Vol] 3.8 mg/dL Normal 2.5-4.5 [facility] Comment on above: Performed By: #### C BCDIF, PT, UA, GBCHEM, GBTSH, MG, RPR #### [facility] [address] [place] [address] Potassium [Moles/Vol] 4.1 mmol/L Normal 3.5-5.1 [facility] Comment on above: Performed By: #### C BCDIF, PT, UA, GBCHEM, GBTSH, MG, RPR #### [facility] [address] [facility] [place] [address] Protein [Mass/Vol] 7.2 g/dL Normal 6.2-8.2 [facility] Comment on above: Performed By: #### C BCDIF, PT, UA, GBCHEM, GBTSH, MG, RPR #### [facility] [address] [facility] [place] [address] Sodium [Moles/Vol] 142 mmol/L Normal 137-145 [facility] Comment on above: Performed By: #### C BCDIF, PT, UA, GBCHEM, GBTSH, MG, RPR #### [facility] [address] [place], [place] [id number] Triglyceride [Mass/Vol] 92 mg/dL Normal 35-150 [facility] Comment on above: Performed By: #### C BCDIF, PT, UA, GBCHEM, GBTSH, MG, RPR #### [facility] [address] [place] [address] Urate [Mass/Vol] 5.2 mg/dL Normal 3.5-8.5 [facility] Comment on above: Performed By: #### C BCDIF, PT, UA, GBCHEM, GBTSH, MG, RPR #### [facility] [address] [place], [place] [id number] Urea nitrogen [Mass/Vol] 15 mg/dL Normal 9-20 [facility] Comment on above: Performed By: #### C BCDIF, PT, UA, GBCHEM, GBTSH, MG, RPR #### [facility] [address] [place], [place] [id number] [facility]SH[facility] 08-22-2019 TSH Qn 1.390 uU/mL Normal 0.465-4.680 [facility] Comment on above: Result Comment: Biot in (Vitamin B7) is known to potentially cause an interfering NEGATIVE bias with this assay. If this result does not correlate clinically with your patient's presentation, it is suggested that Biotin use be discontinued for 2 days prior to re-testing. Performed By: #### C BCDIF, PT, UA, GBCHEM, GBTSH, MG, RPR #### [facility] Lab [address] [place] [address] Magnesiumon 08-22-2019 Magnesium [Mass/Vol] 2.2 mg/dL Normal 1.3-2.3 [facility] Comment on above: Performed By: #### C BCDIF, PT, UA, GBCHEM, GBTSH, MG, RPR #### [facility] [address] [place], [place] [id number] [phone] Protimeon 08-22-2019 PT Coag (PPP) [Time] 13.1 s Normal 11.8-14.1 [facility] Comment on above: Performed By: #### C BCDIF, PT, UA, GBCHEM, GBTSH, MG, RPR #### [facility] [address] [place], [place] [id number] PT Coag (PPP) [Time] 1.0 s Normal 0.6-1.1 [facility] Comment on above: Result Comment: The [...] 3.5 for older generation mechanical heart valves. Libby, et al. Chest 2004: 126:204S to 233S. Performed By: #### C BCDIF, PT, UA, GBCHEM, GBTSH, MG, RPR #### [facility] [address] [place], [place] [id number] Urinalysison 08-22-2019 Bilirubin [Mass/Vol] Negative Normal Negative [facility] Comment on above: Performed By: #### C BCDIF, PT, UA, GBCHEM, GBTSH, MG, RPR #### [facility] [address] [place], [place] [id number] Clarity (U) Hazy Critically abnormal Clear [facility] Comment on above: Performed By: #### C BCDIF, PT, UA, GBCHEM, GBTSH, MG, RPR #### [facility] [address] [place], [place] [id number] Color (U) Yellow Normal Yellow [facility] Comment on above: Performed By: #### C BCDIF, PT, UA, GBCHEM, GBTSH, MG, RPR #### [facility] [address] [place] [address] Glucose [Mass/Vol] Negative Normal Negative [facility] Comment on above: Performed By: #### C BCDIF, PT, UA, GBCHEM, GBTSH, MG, RPR #### [facility] [address] [place] [address] Hemoglobin/Blood Negative Normal Negative [facility] Comment on above: Performed By: #### C BCDIF, PT, UA, GBCHEM, GBTSH, MG, RPR #### [facility] [address] [place] [address] Ketone Negative Normal Negative [facility] Comment on above: Performed By: #### C BCDIF, PT, UA, GBCHEM, GBTSH, MG, RPR #### [facility] [address] [place] [address] Leukest Negative Normal Negative [facility] Comment on above: Performed By: #### C BCDIF, PT, UA, GBCHEM, GBTSH, MG, RPR #### [facility] [address] [place] [address] Nitrite Ql (U) Negative Normal Negative [facility] Comment on above: Performed By: #### C BCDIF, PT, UA, GBCHEM, GBTSH, MG, RPR #### [facility] [address] [place] [address] pH (U) 6.0 [pH] Normal 5-7 [facility] Comment on above: Performed By: #### C BCDIF, PT, UA, GBCHEM, GBTSH, MG, RPR #### [facility] [address] [place] [address] Protein (U) [Mass/Vol] 30 mg/dL Criticall y abnormal Negative [facility] Comment on above: Performed By: #### C BCDIF, PT, UA, GBCHEM, GBTSH, MG, RPR #### [facility] [address] [place] [address] RBC (U) [#/Vol] 0-3 Normal 0-3 [facility] Comment on above: Performed By: #### C BCDIF, PT, UA, GBCHEM, GBTSH, MG, RPR #### [facility] [address] [place] [address] Urine Lamont Comment Many Normal [facility] Comment on above: Result Comment: MUCO US Performed By: #### C BCDIF, PT, UA, GBCHEM, GBTSH, MG, RPR #### [facility] [address] [place] [address] Urine Spec [place] 1.028 Normal 1.005-1.030 [facility] Comment on above: Performed By: #### C BCDIF, PT, UA, GBCHEM, GBTSH, MG, RPR #### [facility] [address] [place], [place] [id number] Urobilinogen Qn (U) 4.0 mg/dl High 0.0-1.0 [facility] Comment on above: Performed By: #### C BCDIF, PT, UA, GBCHEM, GBTSH, MG, RPR #### [facility] [address] [place] [address] WBC (Bld) [#/Vol] 0-5 Normal 0-5 [facility] Comment on above: Performed By: #### C BCDIF, PT, UA, GBCHEM, GBTSH, MG, RPR #### [facility] [address] [place], [place] [id number] Vital Signs Date Time Vital Sign Value Performing Clinician Facility 01-18-2025 11:01-0400 Body height 190.[address] Hank Gill MD Work Phone: [facility] 01-18-2025 11:01-0400 Body mass index (BMI) [Ratio] 24.8 kg/m2 Dr. Hank Gill MD Work Phone: [facility] 01-18-2025 11:01-0400 Body temperature 98.5 [degF] Dr. Hank Gill MD Work Phone: [facility] 01-18-2025 11:01-0400 Body weight 90.[address] Hank Gill MD Work Phone: [facility] 01-18-2025 11:01-0400 Diastolic blood pressure 84 mm[Hg] Dr. Hank Gill MD Work Phone: [facility] 01-18-2025 11:01-0400 Heart rate 85 /min Dr. Hank Gill MD Work Phone: [facility] 01-18-2025 11:01-0400 Respiratory rate 16 /min Dr. Hank Gill MD Work Phone: [facility] 01-18-2025 11:01-0400 SaO2% (BldA) [Mass fraction] 96 % Dr. Hank Gill MD Work Phone: [facility] 01-18-2025 11:01-0400 Systolic blood pressure 124 mm[Hg] Dr. Hank Gill MD Work Phone: [facility] 09-08-2023 14:15-0500 Body temperature 98.71 [degF] Maricel Athy PA-C Work Phone: [facility] 09-08-2023 14:15-0500 Body weight 97.52 kg Maricel Athy PA-C Work Phone: [facility] 09-08-2023 14:15-0500 Diastolic blood pressure 75 mm[Hg] Maricel Athy PA-C Work Phone: [facility] 09-08-2023 14:15-0500 Heart rate 79 /min Maricel Flower PA-C Work Phone: [facility] 09-08-2023 14:15-0500 Respiratory rate 20 /min Maricel Pughy PA-C Work Phone: [facility] 09-08-2023 14:15-0500 SaO2% (BldA) [Mass fraction] 96 % Maricel Pughy PA-C Work Phone: [facility] 09-08-2023 14:15-0500 Systolic blood pressure 137 mm[Hg] Maricel Flower PA-C Work Phone: [facility] 12-05-2022 09:02-0400 Body height 190.[address] Hank Gill Work Phone: [facility] 12-05-2022 09:02-0400 Body mass index (BMI) [Ratio] 27.3 kg/m2 Dr. Hank Gill Work Phone: [facility] 12-05-2022 09:02-0400 Body temperature 97.7 [degF] Dr. Hank Gill Work Phone: [facility] 12-05-2022 09:02-0400 Body weight 99.[address] Hank Gill Work Phone: [facility] 12-05-2022 09:02-0400 Diastolic blood pressure 84 mm[Hg] Dr. Hank Gill Work Phone: [facility] 12-05-2022 09:02-0400 Heart rate 88 /min Dr. Hank Gill Work Phone: [facility] 12-05-2022 09:02-0400 Respiratory rate 18 /min Dr. Hank Gill Work Phone: [facility] 12-05-2022 09:02-0400 SaO2% (BldA) [Mass fraction] 97 % Dr. Hank Gill Work Phone: [facility] 12-05-2022 09:02-0400 Systolic blood pressure 116 mm[Hg] Dr. Hank Gill Work Phone: [facility] 12-21-2021 08:28-0400 Body temperature 97.9 [degF] Dr. Hank Gill Work Phone: [facility] Work Phone: 12-21-2021 08:28-0400 Diastolic blood pressure 80 mm[Hg] Dr. Hank Gill Work Phone: [facility] Work Phone: 12-21-2021 08:28-0400 Heart rate 67 /min Dr. Hank Gill Work Phone: [facility] Work Phone: 12-21-2021 08:28-0400 Respiratory rate 16 /min Dr. Hank Gill Work Phone: [facility] Work Phone: 12-21-2021 08:28-0400 SaO2% (BldA) [Mass fraction] 97 % Dr. Hank Gill Work Phone: [facility] Work Phone: 12-21-2021 08:28-0400 Systolic blood pressure 123 mm[Hg] Dr. Hank Gill Work Phone: [facility] Work Phone: 12-21-2021 06:59-0400 Body height 190.[address] Hank Gill Work Phone: [facility] Work Phone: 12-21-2021 06:59-0400 Body mass index (BMI) [Ratio] 24.5 kg/m2 Dr. Hank Gill Work Phone: [facility] Work Phone: 12-21-2021 06:59-0400 Body weight [address] Hank Gill Work Phone: [facility] Work Phone: 12-05-2021 14:30-0400 Body height 190.[address] Hank Gill Work Phone: [facility] Work Phone: 12-05-2021 14:30-0400 Body mass index (BMI) [Ratio] 25.1 kg/m2 Dr. Hank Gill Work Phone: [facility] Work Phone: 12-05-2021 14:30-0400 Body weight 91.[address] Hank Gill Work Phone: [facility] Work Phone: 12-05-2021 14:30-0400 Diastolic blood pressure 82 mm[Hg] Dr. Hank Gill Work Phone: [facility] Work Phone: 12-05-2021 14:30-0400 Heart rate 78 /min Dr. Hank Gill Work Phone: [facility] Work Phone: 12-05-2021 14:30-0400 Respiratory rate 18 /min Dr. Hank Gill Work Phone: [facility] Work Phone: 12-05-2021 14:30-0400 Systolic blood pressure 122 mm[Hg] Dr. Hank Gill Work Phone: [facility] Work Phone: 11-21-2021 13:12-0400 Body mass index (BMI) [Ratio] 24.9 kg/m2 Dr. Hank Gill Work Phone: [facility] Work Phone: 11-21-2021 13:12-0400 Body temperature 98.1 [degF] Dr. Hank Gill Work Phone: [facility] Work Phone: 11-21-2021 13:12-0400 Body weight 90.[address] Hank Gill Work Phone: [facility] Work Phone: 11-21-2021 13:12-0400 Diastolic blood pressure 74 mm[Hg] Dr. Hank Gill Work Phone: [facility] Work Phone: 11-21-2021 13:12-0400 Heart rate 80 /min Dr. Hank Gill Work Phone: [facility] Work Phone: 11-21-2021 13:12-0400 Respiratory rate 18 /min Dr. Hank Gill Work Phone: [facility] Work Phone: 11-21-2021 13:12-0400 SaO2% (BldA) [Mass fraction] 98 % Dr. Hank Gill Work Phone: [facility] Work Phone: 11-21-2021 13:12-0400 Systolic blood pressure 124 mm[Hg] Dr. Hank Gill Work Phone: [facility] Work Phone: Encounters Encounter Date Encounter Type Care Provider Facility Start: 05-26-2025 Encounter for genera l adult medical examination without abnormal findings [facility] Start: 05-16-2025 End: 05-17-20[facility] Start: 01-18-2025 End: 01-18-2025 Patient encounter procedure [facility] Work Phone: Start: 01-18-2025 End: 01-18-[address] Hank Gill MD Work Phone: [facility] Start: 01-18-2025 End: 01-18-2025 ambulatory Hank Gill Facility:[facility] Start: 05-10-[address] Jose Angel Gill MD Work Phone: [facility] Start: 09-08-2023 End: 09-08-2023 ambulatory [facility] Facility:[facility] Start: 09-08-2023 End: 09-08-2023 Patient encounter procedure Maricel Flower PA-C Work Phone: [facility] Comment on above: Sinobronchitis (Prim lucy Dx) Start: 02-19-2023 End: 02-19-[address] Hank Gill Work Phone: [facility] Work Phone: Start: 02-19-2023 End: 02-19-[address] Hank Gill Work Phone: [facility] Start: 12-05-2022 End: 12-05-2022 Encounter for general adult medical examination without abnormal findings Dr. Hank Gill Work Phone: [facility] Start: 12-05-2022 End: 12-05-[address] Hank Gill Work Phone: [facility] Work Phone: Start: 12-21-2021 Non-patient / Non-visit Dr. Laury Gill Work Phone: [facility] Start: 12-21-2021 End: 12-21-2021 Admission to same day surgery center Dr. Hank Gill Work Phone: [facility] Start: 12-10-2021 End: 12-10-[address] Hank Gill Work Phone: [facility] Start: 12-05-[address] Jose Angel Gill Work Phone: [facility] Start: 12-05-2021 End: 12-05-2021 Encounter for general adult medical examination without abnormal findings Dr. Hank Gill Work Phone: [facility] Start: 12-05-2021 End: 12-05-[address] Hank Gill Work Phone: [facility] Start: 11-28-[address] Hank Gill Work Phone: [facility] Spec[facility] Start: 11-28-2021 End: 11-28-[address] Hank Gill Work Phone: [facility] Start: 11-21-2021 End: 11-21-[address] Hank Gill Work Phone: [facility] Start: 08-18-2020 End: 08-18-2020 Patient encounter procedure TEOFILO SUTTON [facility] Start: 05-25-2020 End: 05-25-2020 Emergency department patient visit CIELO SWAIN [facility] Procedures Date Procedure Procedure Detail Performing Clinician [...] DTaP,Tdap,Td Vaccine (2 - Td or Tdap) [facility] Start: 01-18-2025 Hepatitis A and B and C virus immunity AndOr previous exposure panel - Serum or Plasma [facility] Start: 04-04-2023 Lipid panel Lipid Screening [facility] Start: 03-21-2023 Influenza vaccination Influenza Vaccine (#1) [facility] Start: 12-05-2021 Patient referral [facility] Work Phone: Start: 11-28-2020 Diabetes Screening Diabetes Screening [facility] Start: 2019 Screening for malignant neoplasm of colon [facility] Start: 1992 Hepatitis C screening Hepatitis C Screening [facility] Start: 1992 HIV screening HIV Screening [facility] Start: 01-12-1975 Covid-19 Vaccine (#1) Covid-19 Vaccine (#1) [facility] Start: 1974 Hepatitis B Vaccine (1 of 3 - 3-dose series) Hepatitis B Vaccine (1 of 3 - 3-dose series) [facility] Hepatitis B surface antigen measurement [facility] Hepatitis B virus colón rface Ab [Units/volume] in Serum by Radioimmunoassay (ARSLAN) [facility] Hepatitis C antibody measurement [facility] Patient referral [facility] Work Phone: Immunizations Immunization Date Immunization Notes Care Provider Fa cility 05-25-2020 tetanus toxoid, redu abe diphtheria toxoid, and acellular pertussis vaccine, adsorbed Dr. Hank Gill MD Work Phone: [facility] 05-11-2019 Flucelvax Quad [id number] (PF) (flu vac qs 2019(4 yr up)CD(PF)) 60 mcg ([address] Hank Gill Work Phone: [facility] Work Phone: 04-03-2018 influenza, injectabl e, quadrivalent, contains preservative Maricel Flower PA-C Work Phone: [facility] 04-03-2018 influenza, injectabl e, quadrivalent, preservative free Dr. Hank Gill MD Work Phone: [facility] 04-03-2018 influenza virus vaccine, unspecified formulation Maricel Flower PA-C Work Phone: [facility] Payers Date Payer Category Payer Self-pay [id number] 2023 Unknown [id number] 2023 Unknown [employer] PPO [id number] 2023-Present [phone] [address] [place] [address] PPO [id number] 1974 Unknown [id number] 1974 Unknown [id number] Unknown [id number] Unknown [id number] Unknown [id number] Unknown [id number] Social History Date Type Detail Facility Start: 12-05-2021 End: 12-05-2022 Tobacco smoking status WIIS Unknown if ever smoked [facility] Start: 05-31-2019 Non-smoker [facility] Start: 1975 Sex Assigned At Male W [facility] Start: 09-08-2023 End: 05-10-2024 Tobacco smoking status NHIS Never smoked tobacco [facility] Start: 09-08-2023 Tobacco use and exposure User of smokeless tobacco [facility] of tobacco use [facility] Start: 09-08-2023 Alcohol intake 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 [facility] Start: 1975 Sex Assigned At Not on file C [facility] Medical Equipment Procedure Code Equipment Code Equipment Origin al Text Equipment Identifier Dates MESH,3DMAX LEFT MD [id number] FDA Start: 06-01-2019 MESH,3DMAX LEFT MD [id number] FDA Start: 06-01-2019 MESH,3DMAX LEFT MD [id number] FDA Start: 06-01-2019 MESH,3DMAX LEFT MD [id number] FDA Start: 06-01-2019 MESH,3DMAX LEFT MD [id number] FDA Start: 06-01-2019 Mental Status Date Assessment Result Facility 12-21-2021 Cognitive function Voice/Name [facility] Work Phone: Clinical Notes 05-10-2016 to 01-18-2025 Note Date & Type Note Facility 01-18-2025 Evaluation note Diagnosis Onset Date Resolution Screen for STD (sexually transmitted disease) acute January 18, 2025 10:51am [facility] Work Phone: [phone] 408-389902-19-2024 NoteHNO ID: [id number] Author: MARICEL FLOWER PA-C Service: ? Author Type: Physician Osteopathic Physician Type: Progress Notes Filed: 09/08/2023 15:17 Note [...] up at night. He has tried some rlcu-haa-rtpxexu cough medicines here and there. Denies history [...] 3-5 days if symptoms persist or worsen. [facility] History of Present illness Narrative* Maricel Flower PA-C - 09/08/2023 3:14 PM EST This note was created using PingTuneriter. Subjective Lesa Dutton is a 48 year old male. HPI Patient presents with cough and congestion over the past week. He states the past few days it seemsto worsen. He thinks he may have had a fever the first 2 days but has not noticed one since then. He states cough is kept him up at night. He has tried some wqbz-ext-vrjcvjw cough medicines here and there. Denies history [...] worsen. Maricel Flower PA-C [facility] Instructions* Patient Instructions* Maricel Flower PA-C - 09/08/2023 2:34 PM EST Flonase otc as well [facility] History of Past illness Narrative* Problem Noted Date Diagnosed Date Resolved Date GERD without esophagitis 05/10/2016 documented as of this encounter (statuses as of 09/08/2023) [facility] Diagnosis Onset Date Resolution Status Sterilization consult acute Encounter for sterilization acute [facility] acute GERD (gastroesophageal reflux disease) chronic Hyperlipidemia chronic Screen for colon cancer [facility] Work Phone: Evaluation note* Diagnosis Onset Date Resolution Status Sterilization consult acute Encounter for sterilization acute Encounter for preventative a dult health care examination acute GERD (gastroesophageal reflux disease) chronic Hyperlipidemia chronic Screen for colon cancer acut e Screen for colon cancer [facility] Work Phone: Evaluation note* Diagnosis Onset Date Resolution Status Encounter for preventative a dult health care examination acute GERD (gastroesophageal reflux disease) chronic Hyperlipidemia chronic [facility] Work Phone: Evaluation note* Diagnosis Sinobronchitis- Primary Unspecified sinusitis (chronic) documented in this encounter [facility] Diagnosis Onset Date Resolution Status Admit Date Screen for STD (sexually transmitted disease) acute January 18, 025 10:51am [facility] Work Phone: Reason for referral (narrative)No reason for referral information availableMadison [employer] Work Phone: Summary Purpose Family History No Family History Records Found Relationship Condition Age at Onset Recorded Date/T inga grandfather Malignant neoplasm of colon Unknown grandmother Malignant neoplasm of breast Unknown father Hypertension Unknown Advance Directives No Advanced Directives Records Found Advance Directive Response Recorded Date/ Time Living Will Yes November 02, 2020 1:48pm Power of Rubber Ball Finisher Yes November 02 1:48pm Advance Directive Response Recorded Date/ Time Living Will Yes December 19, 2021 2 :14pm Power of Rubber Ball Finisher Yes December 19, 2021 2:14pm Chief Complaint [...] section and content) DATE CREATED AUTHOR [facility] DATE CREATED AUTHOR AUTHOR'S ORGANIZ ATION 08/20/2020 [facility] DATE CREATED AUTHOR AUTHOR'S ORGANIZ ATION 09/14/2020 [facility] DATE CREATED AUTHOR AUTHOR'S ORGANIZ ATION 09/09/2023 [facility] DATE CREATED AUTHOR AUTHOR'S ORGANIZ ATION 05/28/2025 [facility] Goals (unrecognized section and content) Goals may [...] Provider, Refer ring Provider Active Sherman Zuleta CCO & PRESIDENT, CCO & PRESIDENT-C Attending Provider Active Team Status: Inactive Member Role Status Dates Dr. Hank Gill MD Primary Care Provider Active Sherman Zuleta CCO & PRESIDENT, CCO & PRESIDENT-C Attending Provider, Referring Prov ider Active Team Status: Inactive Member Role Status Dates Dr. Hank Gill MD Primary Care Provider, Atten ding Provider Active Deputy Attorney General Relationship Specialty Start Date End Date Gela Sr MD [address] [place] [address] PCP - General Internal Medicine 06/19/17 Team [...] 2025 End: January 18, 2025 YUNIEL Carrington Referring Provider Active Start: January 18, 2025 End: January 18, 2025 Source Comments (unrecognize d section and content) In the event this informatio n is protected by the Federal Confidentiality of Alcohol and Drug Abuse Patient Records regulations: The Federal rules restrict any use of the information to criminally investigate or prosecute any alcohol or drug abuse patient.[facility] Reason for Visit (unrecogniz ed section [...] BE BASED ON THE PRIMARY CLINICAL RECORDS. [employer] [facility]. provides no warranty or guarantee of the accuracy or completeness of information in this document.
[2025-06-15 10:18] LABS: Hematocrit 44.1 % (40-54); Hemoglobin 15.0 g/dL (13.0-16.5); Immature Granulocytes Count 0.010 X10^3/uL (0.0-0.0); Mean Corp Hgb Conc 34.0 g/dL (32-36); Mean Corpuscular Volume 90.7 fL (80-94); Mean Platelet Vol. 9.5 fl (6.2-12.0); NRBC Flagged by Analyzer 0 % (0-5); Platelet Count 153 K/mm3 (150-450); RBC Distribution Width CV 12.4 % (11.6-14.6); RBC Distribution Width SD 41.1 fl (35.1-43.9); Red Blood Count 4.86 M/mm3 (4.6-6.2); White Blood Count 3.2 K/mm3 (4.4-11.0)
== END | disposition home or self-care (01) ==
LOC: MTLAB 07:14
PROVIDERS: PCP Internal Medicine; Referring Provider Internal Medicine; Visit Provider Internal Medicine
DX: R79.89 Other specified abnormal findings of blood chemistry (principal)
CPT/HCPCS: 36415; 85025